=== PATIENT | female | born 1955 | race Caucasian/White ===

== ENCOUNTER → 2017-07-24 08:22 | Outpatient (CLI) | payer OTHER, SELFPAY ==
--- NOTE | 2017-07-24 08:26 | BD_ITS ---
STUDY: DUAL ENERGY X-RAY ABSORPTIOMETRY / DXA REASON FOR EXAM: Female, 62 years old. The patient is postmenopausal. No loss of height. TECHNIQUE: Bone Mineral Density (BMD) measurements of lumbar spine and bilateral hips were obtained. COMPARISON: Comparison is made with prior study dated November 09, 2013. FINDINGS: Lumbar Spine (L1-L4): g/cm2 (1.018) / T-score (-1.4) / Z-score (-0.2) Findings are suggestive of osteopenia with a moderate fracture risk. Left Femur Total: g/cm2 (0.893) / T-score (-0.9) / Z-score (0.0) Left Femoral Neck: g/cm2 (0.824) / T-score (-1.5) / Z-score (0.3) Right Femur Total: g/cm2 (0.899) / T-score (-0.9) / Z-score (0.1) Right Femoral Neck: g/cm2 (0.824) / T-score (-1.5) / Z-score (-0.3) The T-Scores on the most recent prior examination were: Lumbar Spine (L1-L4): There has been worsening of bone density since the previous examination. Left Femur Total: which represents a worsening of 0.9%. Right Femur Total: which represents a worsening of 1.0%. BD/Dexa Bone Density Study IMPRESSION: The patient is considered osteopenic as outlined below according to World Yury Organization (WHO) criteria with a moderate fracture risk. There has been worsening of bone density since the previous examination. Reference Information: The T-score is the number of standard deviations above or below the standard which is normal for young adults at their peak bone mineral density. The World Health Organization (WHO) interprets the T-scores as follows: Above -1 Normal bone density Between -1 and -2.5 Osteopenia Equal to / or below -2.5 Osteoporosis As a practical clinical guideline, osteopenia may be graded as follows: Mild -1 through -1.5 Moderate -1.6 through -2.0 Severe -2.1 through -2.4 The Z-score is the number of standard deviations above or below age-matched controls. A Z-score of less than -1.5 would be considered abnormal. References: 1. NIH Osteoporosis and Related Bone Diseases http://www.osteo.org 2. International Society for Clinical Densitometry http://www.iscd.org 3. National Osteoporosis Foundation http://www.nof.org Electronically Signed: Ty Fatima MD at 10:07 EDT Tel [phone], Service support ,
== END ==
PROVIDERS: Family Provider Family Medicine; PCP Family Medicine; Visit Provider Obstetrics & Gynecology
DX: N95.8 Other specified menopausal and perimenopausal disorders (principal); M85.80 Other specified disorders of bone density and structure, unspecified site
CPT/HCPCS: 77080

== ENCOUNTER → 2017-07-28 13:36 | Outpatient (CLI) | payer OTHER, SELFPAY | PROVIDERS: Visit Provider Obstetrics & Gynecology | DX: M85.80 Other specified disorders of bone density and structure, unspecified site (principal) | CPT/HCPCS: 36415; 82306 ==

== ENCOUNTER → 2017-07-29 13:25 | Outpatient (CLI) | payer OTHER, SELFPAY ==
--- NOTE | 2017-07-29 13:35 | STE_ITS ---
Reason For Study: Chest Pain Stress Results Protocol: Stress Echocardiogram Maximum Predicted HR: 160 bpm Target HR: 136 bpm% Maximum Pr edicted HR: 81 % DurationHeart Rate Stage (mm:ss) (bpm) BPCom ment BASELINE 50 148/90 MARION PROTOCOL- STAGE 1 3:00 10 0 156/92 MARION PROTOCOL- STAGE 2 3:00 13 0 160/88 MARION PROTOCOL- STAGE 3 1:30 / SOB RECOVERY 68 116/88 Stress Duration: 7:30 mm:ss Maximum Stress HR: 130 bpmM ETS: 9 Baseline Echocardiogram Findings Stress Echo Wall motion Data Resting WMIntermediate WMStress WM Resting Wall Motion Wall Motion Stress All segments Normal. All segments Hyperkinetic. Ejection Fraction 55 %. Ejection Fraction 70 %. Stress Results Heart rate response: appropriate Blood pressure response: resting hypertension - appropriate response Arrhythmias: none Functional capacity: good Stopped secondary to: dyspnea. EKG Data Baseline ECG: sinus bradycardia. Exercise ECG: no obvious ECG changes. Symptoms with Stress No c/o chest discomfort during exercise. Interpretation Summary Negative (adequate) Stress Echocardiogram Ordering Physician: Nick Jin Referring Physician: Nick Jin Performed By: Ashley Gonzales, MATILDE, RVT
== END ==
PROVIDERS: Family Provider Family Medicine; PCP Family Medicine; Visit Provider Family Medicine
DX: R07.9 Chest pain, unspecified (principal)
CPT/HCPCS: 93017; 93350

== ENCOUNTER → 2018-01-06 07:59 | Outpatient (CLI) | payer OTHER, SELFPAY ==
--- NOTE | 2018-01-06 08:05 | CT_ITS ---
STUDY: CT MAXILLOFACIAL SINUSES REASON FOR EXAM: Female, 62 years old. Chronic sinusitis RADIATION DOSAGE (If Supplied By Facility): CTDIvol = ( 33.06 ) mGy, DLP = ( 837.98 ) mGycm TECHNIQUE: The patient was scanned in a multi detector CT scanner. High resolution axial imaging was performed without the administration of intravenous contrast material. Sagittal and coronal images were reconstructed. Individualized dose optimization techniques were used for this CT. COMPARISON: None. FINDINGS: FRONTAL SINUSES: Normal aeration, without mucosal inflammatory disease. ETHMOIDAL SINUSES: Normal aeration, without mucosal inflammatory disease. MAXILLARY SINUSES: Normal aeration, without mucosal inflammatory disease. SPHENOIDAL SINUSES: Normal aeration, without mucosal inflammatory disease. There is patency of the bilateral maxillary infundibuli with normal uncinate processes, ethmoid bullae, and hiatus semilunaris. Normal bilateral middle turbinates. Normal bilateral inferior turbinates. Normal midline nasal septum. There is patency of the bilateral nasal airways. The visualized osseous structures are normal. The visualized bilateral orbital contents are normal. CT/Sinus/Facial Bone IMPRESSION: Normal CT examination of the maxillofacial sinuses. Electronically Signed: Alfie Frances, at 17:35 EDT Tel , Service support ,
== END ==
PROVIDERS: Family Provider Family Medicine; PCP Family Medicine; Referring Provider Otolaryngology; Visit Provider Otolaryngology
DX: J32.9 Chronic sinusitis, unspecified (principal)
CPT/HCPCS: 70486

== ENCOUNTER → 2018-07-21 14:20 | Outpatient (CLI) | payer OTHER, SELFPAY ==
[2018-07-24 13:57] LABS: HPV HC, High Risk Negative (Negative)
== END ==
PROVIDERS: Visit Provider Obstetrics & Gynecology
DX: Z12.4 Encounter for screening for malignant neoplasm of cervix (principal)
CPT/HCPCS: 87624; 88175; G0145

== ENCOUNTER → 2019-11-09 10:55 | Outpatient (CLI) | payer OTHER, SELFPAY | PROVIDERS: PCP Family Medicine; Referring Provider Family Medicine; Visit Provider Family Medicine | DX: R19.7 Diarrhea, unspecified (principal) | CPT/HCPCS: 87493; 87506 ==

== ENCOUNTER → 2019-12-03 | Outpatient (CLI) | payer OTHER, SELFPAY ==
[2019-12-08 17:22] LABS: HPV Reflexed? NOT INDICATED
== END | disposition home or self-care (01) ==
LOC: LABSPEC 15:18
PROVIDERS: PCP Family Medicine; Visit Provider Student in an Organized Health Care Education/Training Program
DX: Z12.4 Encounter for screening for malignant neoplasm of cervix (principal)
CPT/HCPCS: 88175; G0145

== ENCOUNTER → 2020-05-26 14:59 | Outpatient (CLI) | payer OTHER, SELFPAY ==
--- NOTE | 2020-05-26 15:03 | RAD_ITS ---
STUDY: X-RAY - LEFT FOOT CLINICAL: Female, 64 years old. Left foot pain x 2-3 days -- unknown injury -- bruising lateral side distal 5th mt TECHNIQUE: 3 view(s) of the foot. COMPARISON: None. FINDINGS: Normal talus, calcaneus, and tarsal bones. Normal visualized subtalar, talonavicular, calcaneocuboid, tarsal and tarsometatarsal articulations. Normal metatarsi. Normal metatarsophalangeal joint of the great toe. Normal tibial and fibular sesamoid bones. Normal interphalangeal joint of the great toe. Normal phalanges of the great toe. Normal second through fifth metatarsophalangeal joints. Normal interphalangeal joints and phalanges of the lesser toes. The soft tissue structures are unremarkable. RAD/Foot min 3 Views IMPRESSION: Normal x-ray examination of the foot. Electronically Signed: Ty Fatima MD at 15:23 EST , Service support ,
== END ==
PROVIDERS: PCP Family Medicine; Referring Provider Family Medicine; Visit Provider Family Medicine
DX: M79.672 Pain in left foot (principal)
CPT/HCPCS: 73630

== ENCOUNTER → 2020-06-09 10:35 | Outpatient (CLI) | payer OTHER, SELFPAY ==
--- NOTE | 2020-06-10 08:47 | PFTCOMP ---
COMPLETE PULMONARY FUNCTION TEST INTERPRETATION Brief HPI: Patient is a 65 year old female, currently under the care of Dr. Hernandes, who presents to [facility] for complete pulmonary function tests secondary to diagnosis of asthma. Respiratory therapist reports good effort and reproducible results. Interpretation: Forced expiration spirometry shows no large airways obstructive ventilatory defect with an FEV1 of 93% predicted. There is no significant bronchodilator response by strict ATS criteria. Spirograms are of good quality and plateau normally. The respiratory flow volume loop shows a normal pattern. Lung volumes by body plethysmography show a normal total lung capacity at 5.93 L, 105% predicted. All other lung volumes are within normal limits. Diffusion capacity by carbon monoxide is normal at 101% predicted. The airway resistance is elevated. No previous pulmonary function tests were available for review. Impression: These pulmonary function tests are within normal limits.
== END ==
PROVIDERS: PCP Family Medicine; Referring Provider Family Medicine; Visit Provider Family Medicine
DX: J45.909 Unspecified asthma, uncomplicated (principal)
CPT/HCPCS: 94060; 94726; 94729

== ENCOUNTER → 2020-09-11 10:05 | Outpatient (CLI) | payer OTHER, SELFPAY ==
[2020-09-11 13:29] LABS: ALB/GLOB Ratio 1.2 RATIO (0.9-2.4); AST(SGOT) 17 U/L (15-37); Alanine Aminotransfer ALT/SGPT 15 U/L (13-56); Albumin, Serum 3.6 g/dL (3.2-5.0); Alkaline Phosphatase 66 U/L (45-117); Anion Gap 6 (5-15); BUN 15 mg/dL (7-18); BUN/Creat Ratio 18.8 RATIO (10-20); Calcium,Total 8.9 mg/dL (8.5-10.1); Chloride 105 mmol/L (98-107); Cholesterol 251 mg/dL (200); EST Glomerular Filtration Rate 77 mL/min (>60); Est Glom Filt Rate - Afr Amer 94 mL/min (>60); Globulin 2.9 g/dL (2.2-4.2); Glucose 85 mg/dL (74-106); High Density Lipoprotein 62 mg/dL; Potassium 4.3 mmol/L (3.5-5.1); Protein, Total 6.5 g/dL (6.4-8.2); Sodium Level 140 mmol/L (136-145); Triglycerides 125 mg/dL; Very Low Density Lipoprotein 25 mg/dL (5-40)
== END ==
PROVIDERS: PCP Family Medicine; Referring Provider Family Medicine; Visit Provider Family Medicine
DX: Z13.1 Encounter for screening for diabetes mellitus (principal); Z13.220 Encounter for screening for lipoid disorders
CPT/HCPCS: 36415; 80053; 80061

== ENCOUNTER → 2021-01-15 | Outpatient (CLI) | payer OTHER, SELFPAY | END | disposition home or self-care (01) | LOC: LABSPEC 01-16 13:38 | PROVIDERS: PCP Family Medicine; Referring Provider Physician Assistant Surgical; Visit Provider Physician Assistant Surgical | DX: Z20.822 Contact with and (suspected) exposure to COVID-19 (principal) | CPT/HCPCS: 87635; U0005; U0003 ==

== ENCOUNTER 2021-04-24 08:51 | Outpatient (CLI) | payer OTHER, SELFPAY ==
--- NOTE | 2021-04-24 09:01 | BD_ITS ---
STUDY: DUAL ENERGY X-RAY ABSORPTIOMETRY / DXA REASON FOR EXAM: Female, 65 years old. 780. Patient is postmenopausal. TECHNIQUE: Bone Mineral Density (BMD) measurements of lumbar spine and bilateral hips were obtained. COMPARISON: Comparison is made with prior study dated 07/24/2017. FINDINGS: Lumbar Spine (L1-L4): g/cm2 (0.858) / T-score (-1.7) / Z-score (0.0) Findings are suggestive of osteopenia with a moderate fracture risk. Left Femur Total: g/cm2 (0.826) / T-score (-1.0) / Z-score (0.2) Left Femoral Neck: g/cm2 (0.667) / T-score (-1.6) / Z-score (-0.2) Right Femur Total: g/cm2 (0.828) / T-score (-0.9) / Z-score (0.2) Right Femoral Neck: g/cm2 (0.662) / T-score (-1.7) / Z-score (-0.2) The T-Scores on the most recent prior examination were: Lumbar Spine (L1-L4): There has been worsening of bone density since the previous examination. Left Femur Total: which represents a worsening of 0.4%. Right Femur Total: which represents a worsening of 0.9%. BD/Dexa Bone Density Study IMPRESSION: The patient is considered osteopenic as outlined below according to World Yury Organization (WHO) criteria with a moderate fracture risk. There has been worsening of bone density since the previous examination. Reference Information: The T-score is the number of standard deviations above or below the standard which is normal for young adults at their peak bone mineral density. The World Health Organization (WHO) interprets the T-scores as follows: Above -1 Normal bone density Between -1 and -2.5 Osteopenia Equal to / or below -2.5 Osteoporosis As a practical clinical guideline, osteopenia may be graded as follows: Mild -1 through -1.5 Moderate -1.6 through -2.0 Severe -2.1 through -2.4 The Z-score is the number of standard deviations above or below age-matched controls. A Z-score of less than -1.5 would be considered abnormal. References: 1. NIH Osteoporosis and Related Bone Diseases www osteo.org 2. International Society for Clinical Densitometry www iscd.org 3. National Osteoporosis Foundation www nof.org Electronically Signed: Ty Fatima MD at 10:01 EST , Service support ,
== END 2021-04-24 23:59 | disposition short-term general hospital (02) ==
LOC: OPBD 08:51
PROVIDERS: PCP Family Medicine; Referring Provider Student in an Organized Health Care Education/Training Program; Visit Provider Student in an Organized Health Care Education/Training Program
DX: Z78.0 Asymptomatic menopausal state (principal)
CPT/HCPCS: 77080

== ENCOUNTER → 2022-01-24 | Outpatient (CLI) | payer OTHER, SELFPAY ==
[2022-01-24 12:19] LABS: Absolute Lymphocyte Count 0.99 X10^3/uL (0.83-4.51); Absolute Neutrophil Count 1.9 X10^3/uL (2.0-7.7); Basophil# 0.03 X10^3/uL; Basophil% 0.9 % (0-1); Eosinophil# 0.12 X10^3/uL; Eosinophils% 3.5 % (0-5); Hematocrit 40.3 % (37-47); Hemoglobin 13.2 g/dL (12.0-15.0); Lymphocyte # 0.99 X10^3/ul (0.83-4.51); Lymphocyte % 28.9 % (19-41); Mean Corp Hgb Conc 32.8 g/dL (32-36); Mean Corpuscular Hgb 30.5 pg (27.0-32.0); Mean Corpuscular Volume 93.1 fL (81-99); Mean Platelet Vol. 9.8 fl (6.2-12.0); Monocyte# 0.34 X10^3/uL; Monocyte% 9.9 % (0-10); NRBC Flagged by Analyzer 0 % (0-5); Neutrophil # 1.93 X10^3/uL (2.7-7.7); Neutrophil % 56.5 % (47-70); Platelet Count 260 K/mm3 (150-450); RBC Distribution Width CV 13.1 % (11.6-14.6); RBC Distribution Width SD 44.7 fl (35.1-43.9); Red Blood Count 4.33 M/mm3 (4.2-5.4); White Blood Count 3.4 K/mm3 (4.4-11.0)
[2022-01-24 12:34] LABS: Vitamin D,25 Hydroxy 40.5 ng/mL
[2022-01-24 12:38] LABS: ALB/GLOB Ratio 1.1 RATIO (0.9-2.4); AST(SGOT) 16 U/L (15-37); Alanine Aminotransfer ALT/SGPT 18 U/L (13-56); Albumin, Serum 3.7 g/dL (3.2-5.0); Alkaline Phosphatase 64 U/L (45-117); Anion Gap 5 (5-15); BUN 22 mg/dL (7-18); BUN/Creat Ratio 23.1 RATIO (10-20); Calcium,Total 9.1 mg/dL (8.5-10.1); Chloride 105 mmol/L (98-107); Cholesterol 240 mg/dL (200); Creatinine, Serum 0.95 mg/dL (0.55-1.02); EST Glomerular Filtration Rate 63 mL/min (>60); Est Glom Filt Rate - Afr Amer 76 mL/min (>60); Globulin 3.3 g/dL (2.2-4.2); Glucose 88 mg/dL (74-106); High Density Lipoprotein 64 mg/dL; Potassium 4.4 mmol/L (3.5-5.1); Sodium Level 140 mmol/L (136-145); Triglycerides 118 mg/dL; Very Low Density Lipoprotein 24 mg/dL (5-40)
== END | disposition home or self-care (01) ==
LOC: BFHLAB 09:19
PROVIDERS: PCP Family Medicine; Visit Provider Family Medicine
DX: Z00.01 Encounter for general adult medical examination with abnormal findings (principal); M85.80 Other specified disorders of bone density and structure, unspecified site; F32.A Depression, unspecified
CPT/HCPCS: 36415; 80053; 80061; 82306; 85025

== ENCOUNTER 2022-03-22 12:30 | Outpatient (RCR) | payer OTHER, SELFPAY ==
--- NOTE | 2022-03-15 12:11 | HP.PTEVAL_ITS ---
Patient's Visit Information WILLIE COBOS is a 66 year old F referred to Physical Therapy by Dr. Dickson Lorenz DO with a diagnosis of cervical spine pain. Date of Evaluation: 03/15/22 Physical Therapist: Charly Kelly, PT, ATC - Visit Plan Frequency: 2x /Week Duration: 1 Week Plan: Issue and instruct in HEP of scap stab and rotator cuff ex's - Subjective Pt reports she went to the doctor 2 months ago because she had severe neck pain that radiated down her back and her R UE. Pt notes she believed her pain was a result of carrying her 20 pound grand child. Pt reports she quit doing that over the past 2 months and all of the symptoms have dissipated. Pt notes she is here today to get ex's for preventing future episodes of c/s pain. Pt reports she has had recent x-rays which revealed significant OA. Pt reports she used to play t santana and water ski, but she plans on stopping that now secondary to her R UE weakness and pain. Pt reports no sleep difficulty now secondary to pain. Pt notes she couldn't sleep when pain was bad. Pt reports her greatest complaint is the stiffness that still exists. Pt reports she is in no pain today. - Pain neck pain Pain Intensity (Out of 10): 0 - Objective Neuro: B UE sensation is WNL to light touch. B bicipital reflex= 2/3. MMT: B UE's are grossly 4+/5 throughout. ROM: B UE's are WFL when compared bilatera lly. C/S ROM is minimally limited in all planes. retraction is severely limited. Repeated movements: NE with RRIS and RPIS 10x1 - Balance/Special Test Scores Oswestry Neck Score: 9 - Goals Goal 1:: I with HEP Goal Time Frame: 1 Week - Rehabilitation Potential Physical Therapy Diagnosis: Pt has neck pain, R UE pain secondary to c/s OA Rehabilitation Potential: Good - Anticipated Interventions Thank you for the opportunity to evaluate your patient. For Medicare and Medicare HMO plans, please review the plan of care and approve it. It will need to be FAXED BACK to us at [phone] for Medicare purposes. For Medicare only, by signing this I certify the plan of care. Please let me know if there are questions or concerns regarding this plan of care. Physician Signat amelie: Date:
--- NOTE | 2022-03-22 13:36 | HP.PTDCSUM ---
It has been my pleasure to treat WILLIE COBOS referred by Dr. Dickson Lorenz DO, with the diagnosis of cervical spine pain for a total of 3 visit(s). Discharge Date: Please see the following information for a summary of their discharge status. Subjective: My pain is better today neck pain Pain Intensity (Out of 10): 2 % Improvement: 50 Objective/Function: Pt is now I with HEP Goal 1:: I with HEP Plan: Discharge to HEP If there are questions or concerns regarding this patient's physical therapy, please feel free to call me at [phone]. Thank you for the referral of this patient. Sincerely, Charly Kelly, PT, ATC Balance/Gait/Functional tests - Balance/Special Test Scores Oswestry Neck Score: 9
== END 2022-03-22 13:42 | disposition home or self-care (01) ==
LOC: PT 12:30
PROVIDERS: PCP Family Medicine; Referring Provider Orthopaedic Surgery; Visit Provider Orthopaedic Surgery
DX: M48.02 Spinal stenosis, cervical region (principal); M47.22 Other spondylosis with radiculopathy, cervical region; M25.521 Pain in right elbow
CPT/HCPCS: 97110; 97161

== ENCOUNTER → 2022-07-12 | Outpatient (CLI) | payer MEDICARE, SELFPAY ==
[2022-07-12 16:36] LABS: Absolute Lymphocyte Count 1.17 X10^3/uL (0.83-4.51); Absolute Neutrophil Count 2.5 X10^3/uL (2.0-7.7); Basophil# 0.04 X10^3/uL; Eosinophil# 0.06 X10^3/uL; Eosinophils% 1.5 % (0-5); Hematocrit 38.4 % (37-47); Hemoglobin 12.5 g/dL (12.0-15.0); Lymphocyte # 1.17 X10^3/ul (0.83-4.51); Lymphocyte % 28.7 % (19-41); Mean Corp Hgb Conc 32.6 g/dL (32-36); Mean Corpuscular Hgb 30.7 pg (27.0-32.0); Mean Corpuscular Volume 94.3 fL (81-99); Mean Platelet Vol. 10.1 fl (6.2-12.0); Monocyte# 0.32 X10^3/uL; Monocyte% 7.8 % (0-10); NRBC Flagged by Analyzer 0 % (0-5); Neutrophil # 2.48 X10^3/uL (2.7-7.7); Neutrophil % 60.8 % (47-70); Platelet Count 260 K/mm3 (150-450); RBC Distribution Width CV 12.8 % (11.6-14.6); RBC Distribution Width SD 44.7 fl (35.1-43.9); Red Blood Count 4.07 M/mm3 (4.2-5.4); White Blood Count 4.1 K/mm3 (4.4-11.0)
[2022-07-12 16:43] LABS: ALB/GLOB Ratio 1.1 RATIO (0.9-2.4); AST(SGOT) 20 U/L (15-37); Alanine Aminotransfer ALT/SGPT 21 U/L (13-56); Albumin, Serum 3.6 g/dL (3.2-5.0); Alkaline Phosphatase 63 U/L (45-117); Anion Gap 4 (5-15); BUN 18 mg/dL (7-18); BUN/Creat Ratio 19.8 RATIO (10-20); Calcium,Total 8.7 mg/dL (8.5-10.1); Chloride 103 mmol/L (98-107); Cholesterol 227 mg/dL (200); Creatinine, Serum 0.91 mg/dL (0.55-1.02); EST Glomerular Filtration Rate 66 mL/min (>60); Est Glom Filt Rate - Afr Amer 80 mL/min (>60); Globulin 3.2 g/dL (2.2-4.2); Glucose 96 mg/dL (74-106); High Density Lipoprotein 61 mg/dL; Potassium 4.1 mmol/L (3.5-5.1); Protein, Total 6.8 g/dL (6.4-8.2); Sodium Level 136 mmol/L (136-145); Triglycerides 186 mg/dL; Very Low Density Lipoprotein 37 mg/dL (5-40)
== END | disposition home or self-care (01) ==
PROVIDERS: PCP Internal Medicine; Referring Provider Internal Medicine; Visit Provider Internal Medicine
DX: E78.5 Hyperlipidemia, unspecified (principal); M85.80 Other specified disorders of bone density and structure, unspecified site
CPT/HCPCS: 36415; 80053; 80061; 82306; 85025

== ENCOUNTER → 2023-01-01 | Outpatient (CLI) | payer MEDICARE, SELFPAY ==
--- NOTE | 2023-01-01 09:51 | RAD_ITS ---
STUDY: X-RAY CHEST REASON FOR EXAM: Female, 67 years old. Cough TECHNIQUE: PA and lateral views of the chest. COMPARISON: None. FINDINGS: The lungs are clear and expanded. There is a small focus of surgical clips in the right chest. There is no demonstrated pleural abnormality. Normal size heart. Normal mediastinum and car. Normal visualized pulmonary arteries. There is a trace focus of calcification at the aortic arch. Normal visualized thoracic spine. Normal visualized ribs, clavicles, and shoulders. There is no demonstrated abnormality of the visualized soft tissue structures of the upper abdomen. RAD/Chest PA and Lateral IMPRESSION: No demonstrated acute cardiopulmonary process. Electronically Signed: Edith Yang MD at 17:13 EDT ,
== END | disposition home or self-care (01) ==
LOC: MTRAD 09:50
PROVIDERS: PCP Internal Medicine; Referring Provider Internal Medicine; Visit Provider Internal Medicine
DX: R05.8 Other specified cough (principal)
CPT/HCPCS: 71046

== ENCOUNTER → 2023-01-14 | Outpatient (CLI) | payer MEDICARE, SELFPAY ==
--- NOTE | 2023-01-14 10:31 | RAD_ITS ---
STUDY: X-RAY CHEST REASON FOR EXAM: Female, 67 years old. Cough TECHNIQUE: PA and lateral views of the chest. COMPARISON: January 01, 2023 chest x-ray FINDINGS: There is a stable appearance of the lungs.. There is no focal consolidation or pleural effusion. There is no demonstrated pleural abnormality. Normal size heart. Normal mediastinum and car. Normal visualized pulmonary arteries. There is atherosclerotic calcification of the aortic arch with tortuosity. Normal visualized thoracic spine. Normal visualized ribs, clavicles, and shoulders. There is no demonstrated abnormality of the visualized soft tissue structures of the upper abdomen. RAD/Chest PA and Lateral IMPRESSION: Degenerative changes, as described above. No demonstrated acute cardiopulmonary process. Electronically Signed: Edith Yang MD at 10:49 EDT ,
== END | disposition home or self-care (01) ==
LOC: MTRAD 10:30
PROVIDERS: PCP Internal Medicine; Referring Provider Physician Assistant; Visit Provider Physician Assistant
DX: R05.9 Cough, unspecified (principal)
CPT/HCPCS: 71046

== ENCOUNTER 2023-01-18 13:34 | Emergency (ER) | payer MEDICARE, SELFPAY ==
[2023-01-18 13:38] VITALS: BP 143/103; PULSE 79; RESP 18; TEMP 36.9; O2SAT 97; BMI 20.9
--- NOTE | 2023-01-18 14:00 | RAD_ITS ---
INDICATION: cough EXAMINATION/TECHNIQUE: X-RAY - XR Chest 2 Views COMPARISON: January 14, 2023 FINDINGS: LINES/DEVICES: None. LUNGS: No consolidation, edema or effusion. No pneumothorax. MEDIASTINUM AND CARDIOVASCULAR STRUCTURES: Cardiac silhouette not enlarged. Central airways and mediastinal contour are unremarkable. BONES AND SOFT TISSUES: Unremarkable. Stable exam. RAD/Chest PA and Lateral IMPRESSION: No radiographic evidence of acute cardiopulmonary disease. Electronically Signed: Shlomo Buenrostro MD at 14:25 EDT ,
--- NOTE | 2023-01-18 14:21 | EDS_ITS ---
HPI <ALEX Carreno - Last Filed: 01/18/23 16:07> History of Present Illness Chief Complaint: Shortness of Breath Narrative Narrative: Patient presenting today due to a cough that she has had for over a month. She reports that it is a wet cough but she rarely coughs up sputum. She was seen at urgent care on 12/26/2022 for this cough and was put on a Medrol Dosepak, she did not have any relief of her symptoms with this so she saw an associate at her PCPs office on 01/14/2023 and was put on doxycycline and prednisone. She did complete these medications but did not have any relief of her symptoms. She reports a history of asthma, she denies any history of smoking. She has been using her inhaler as needed. She does report feeling slightly short of breath on exertion over this past month due to feeling like she cannot take a full breath. She reports nasal congestion and a feeling of fullness in her ears, especially on the left. She denies fever, chills, chest pain, abdominal pain, nausea, and vomiting. PFS <ALEX Carreno - Last Filed: 01/18/23 16:07> [facility] Medical History Acute sinusitis, unspecified Anxiety and depression Arthritis Asthma Asthmatic bronchitis with acute exacerbation Bronchitis Carpal tunnel syndrome Colon cancer screening Health care maintenance History of frequent headaches History of hearing problem History of skin cancer Hx of breast lump Hx of emotional problems HX: breast cancer Hyperlipidemia Migraines Osteopenia Pneumonia Right elbow pain Vitamin deficiency Home Medications arm brace (MINDY Elbow Brace) #1 ea 07/12/22 [Rx Last Taken Unknown] calcium carbonate 600 mg calcium (1,500 mg) tablet (Calcium) 905 mg PO DAILY 07/12/22 [History Last Taken Unknown] cholecalciferol (vitamin D3) 75 mcg (3,000 unit) tablet 25 mcg PO DAILY 07/12/22 [History Last Taken Unknown] famotidine 10 mg tablet (Pepcid AC) 10 mg PO DAILY 07/12/22 [History Last Taken Unknown] magnesium 200 mg tablet 200 mg PO DAILY 07/12/22 [History Last Taken Unknown] sumatriptan succinate 50 mg tablet 50 mg PO QDAY #14 tabs 09/05/22 [Rx Last Taken Unknown] albuterol sulfate 90 mcg/actuation aerosol inhaler 2 puff inhalation Q6H PRN shortness of breath or wheezing #8.5 grams 01/01/23 [Rx Last Taken Unknown] benzonatate 100 mg capsule 100 mg PO TID PRN cough #30 caps 01/01/23 [Rx Last Taken Unknown] citalopram 20 mg tablet 20 mg PO DAILY #30 tabs 01/01/23 [Rx Last Taken Unknown] doxycycline hyclate 100 mg tablet 100 mg PO DAILY #10 tabs 01/01/23 [Rx Last Taken Unknown] albuterol sulfate 90 mcg/actuation aerosol inhaler 2 puff inhalation 6XD PRN shortness of breath or wheezing #8.5 grams 01/14/23 [Rx Last Taken Unknown] clindamycin HCl 300 mg capsule 300 mg PO TID #30 caps 01/14/23 [Rx Last Taken Unknown] codeine 7.5 mg-guaifenesin 225 mg/5 mL oral liquid 5 ml PO QPM 1 week #35 mL 01/18/23 [Rx Last Taken Unknown] fexofenadine 60 mg-pseudoephedrine ER 120 mg tablet,ext.release,12 hr (Jennifer-D 12 Hour) 1 tab PO Q12H PRN sinus symptoms 2 weeks #14 tabs 01/18/23 [Rx Last Taken Unknown] inhalational spacing device (BreatheRite MDI Spacer) #1 ea 01/18/23 [Rx Last Taken Unknown] prednisone 20 mg tablet 40 mg (2 x 20 mg) PO DAILY 4 days #8 TABLETS 01/18/23 [Rx Last Taken Unknown] Allergy/AdvReac Type Severity Reaction Status Date / Time Penicillins Allergy Mild Rash Verified 01/18/23 13:38 Family History Uncle Myocardial infarction Grandfather Heart disease Father Hx of blood clots Aunt Breast cancer Mother Anesthesia complication Sister Anesthesia complication Surgical History H/O lumpectomy Social History Smoking Status: Never smoker alcohol intake: current alcohol intake frequency: a few times a month substance use type: does not use what type of physical activity do you participate in: walking and yoga ROS <ALEX Carreno - Last Filed: 01/18/23 16:07> ROS ED Constitutional Constitutional ED: Denies chills or fever(s) ENT ENT ED: Reports nasal congestion; Denies facial pain or sore throat Cardiovascular Cardiovascular: Denies chest pain or palpitations Respiratory/Chest Respiratory/Chest: Reports cough, dyspnea on exertion and wheezing; Denies tachypnea Gastrointestinal Gastrointestinal: Denies abdominal pain, nausea or vomiting Musculoskeletal Musculoskeletal: Denies arthralgias or myalgias Integumentary Denies rash Neurologic Neurologic: Denies weakness EXAM <ALEX Carreno - Last Filed: 01/18/23 16:07> Physical Exam Const Vital Signs: 01/18/23 13:38 01/18/23 14:25 01/18/23 14:25 Temperature 98.5 F Temperature Source Temporal Pulse Rate 79 65 Respiratory Rate 18 16 Respiratory Pattern Normal Blood Pressure 143/103 H Blood Pressure Mean 116 Pulse Ox 97 98 Oxygen Delivery Method Room Air Room Air 01/18/23 15:41 Temperature Temperature Source Pulse Rate Respiratory Rate 17 Respiratory Pattern Blood Pressure Blood Pressure Mean Pulse Ox 99 Oxygen Delivery Method Positive well nourished, well developed and no apparent distress General Appearance ED: well developed HEENT Reports normocephalic and head/scalp atraumatic HEENT Narrative: Right TM clear, left TM with effusion, no bulging or erythema to the left TM Mouth ED: Yes moist mucous membranes normal Eyes PERRL and EOMs intact bilaterally Neck full ROM and supple Chest Wall inspection of chest normal Resp normal respiratory effort and clear to auscultation bilaterally Resp Narrative: Scattered expiratory wheezes with course lung sounds throughout bilateral lung way. Cardio regular rate and regular rhythm GI soft to palpation, non-tender, non-distended and no masses Back/Spine normal ROM and normal to inspection Extremity normal to inspection and full ROM Neuro oriented x3, CN's II-XII intact bilaterally, moves all extremities, no focal motor deficits and no sensory deficits noted Sensorium / Orientation: awake and alert Psych mental status grossly normal and thought process normal Skin no rashes or lesions noted and no wounds <Dr. Richmond Pandey MD - Last Filed: 01/18/23 15:14> Physical Exam Const Vital Signs: 01/18/23 13:38 01/18/23 14:25 01/18/23 14:25 Temperature 98.5 F Temperature Source Temporal Pulse Rate 79 65 Respiratory Rate 18 16 Respiratory Pattern Normal Blood Pressure 143/103 H Blood Pressure Mean 116 Pulse Ox 97 98 Oxygen Delivery Method Room Air Room Air 01/18/23 15:41 Temperature Temperature Source Pulse Rate Respiratory Rate 17 Respiratory Pattern Blood Pressure Blood Pressure Mean Pulse Ox 99 Oxygen Delivery Method MDM <ALEX Carreno - Last Filed: 01/18/23 16:07> [facility] Narrative Medical decision making narrative: Patient presenting today due to a wet cough that she has had for over a month. She is nontoxic-appearing, vitals are unremarkable aside from elevated blood pressure. She is not hypoxic, O2 is 98% on room air. She does have a history of asthma, her lungs are little bit wheezy and she has course breath sounds throughout. Left TM effusion without any erythema or bulging to the TM. Chest x-ray will be obtained to rule out pneumonia, she will be given a DuoNeb here. X-ray is unremarkable. She has not trialed any decongestants, I do think she would benefit from a decongestant as well as something to help her sleep at night as the cough is making it hard for her to sleep. She will be given a prescription for prednisone, guaifenesin and codeine for nighttime, and Jennifer- D. She will be discharged home in stable condition. She is to follow-up with her PCP. Radiography X-Ray: Read by ED Physician and Read by Radiologist Diagnostic Testing: Clinical Impression(s) from Imaging Studies Chest X-Ray 01/18/23 14:00 IMPRESSION: No radiographic evidence of acute cardiopulmonary disease. Electronically Signed: Shlomo Buenrostro MD at 14:25 EDT , <Dr. Richmond Pandey MD - Last Filed: 01/18/23 15:14> [facility] Radiography Diagnostic Testing: Clinical Impression(s) from Imaging Studies Chest X-Ray 01/18/23 14:00 IMPRESSION: No radiographic evidence of acute cardiopulmonary disease. Electronically Signed: Shlomo Buenrostro MD at 14:25 EDT , Treatment and Re-Evaluation :: I have personally performed a face to face assessment of the patient and have reviewed the KANG Note. I performed a substantive portion of the visit including all aspects of the following. My fisher findings include: History: Patient has been having coughing going on for weeks. She does have a history of asthma. She was seen in urgent care and placed on what sounds like a Medrol Dosepak. She then saw her primary physician. She was placed on prednisone and antibiotics. She seems like the symptoms get better each time but do not resolve and then the symptoms come back. She has had a trip to [place] but that was after her symptoms started and after she had already been seen and treated twice. Things are not worsening. She has never had chest pain or hemoptysis. No leg pain or swelling. No history of DVT or PE. Exam: Patient awake alert no acute distress. Vitals look good. Saturations are normal at 98% on room air showing no hypoxia. But the patient does have diffuse expiratory wheezing. She has some overall coarse breath sounds. I do not hear rales. There is no pain with a deep breath. She is not tachycardic. There is no peripheral edema at all. Medical Decision Making: Patient will have x-ray done. We will give her a DuoNeb and recheck her. Discharge Plan Triage Chief Complaint: Shortness of Breath ED Midlevel Provider: Monik Gtz ED Provider: Richmond Pandey Dx/Rx/DC Orders Clinical Impression: Bronchitis, Asthma Instructions: ED Bronchitis with Wheezing (Adult) Prescriptions: New fexofenadine-pseudoephedrine [Jennifer-D 12 Hour] 60-120 mg tablet extended release 12 hr 1 tab PO Q12H PRN (Reason: sinus symptoms) 14 Days Qty: 14 0RF codeine-guaifenesin 7.5-225 mg/5 mL liquid 5 ml PO QPM 7 Days Qty: 35 0RF prednisone 20 mg tablet 40 mg PO DAILY 4 Days Qty: 8 0RF (DME) BreatheRite MDI Spacer Spacer See Rx Instructions .Route Qty: 1 0RF Rx Instructions: As directed No Action calcium carbonate [Calcium 600] 600 mg calcium (1,500 mg) tablet 905 mg PO DAILY cholecalciferol (vitamin D3) 75 mcg (3,000 unit) tablet 25 mcg PO DAILY magnesium 200 mg tablet 200 mg PO DAILY famotidine [Pepcid AC] 10 mg tablet 10 mg PO DAILY (DME) MINDY Elbow Brace Misc See Rx Instructions .Route Qty: 1 3RF Rx Instructions: As directed doxycycline hyclate 100 mg tablet 100 mg PO DAILY Qty: 10 0RF benzonatate 100 mg capsule 100 mg PO TID PRN (Reason: cough) Qty: 30 0RF albuterol sulfate 90 mcg/actuation HFA aerosol inhaler 2 puff inhalation Q6H PRN (Reason: shortness of breath or wheezing) Qty: 8.5 1RF citalopram 20 mg tablet 20 mg PO DAILY Qty: 30 0RF clindamycin HCl 300 mg capsule 300 mg PO TID Qty: 30 0RF albuterol sulfate 90 mcg/actuation HFA aerosol inhaler 2 puff inhalation 6XD PRN (Reason: shortness of breath or wheezing) Qty: 8.5 0RF sumatriptan succinate 50 mg tablet 50 mg PO QDAY Qty: 14 1RF Primary Care Provider: Frantz Cotter Referrals: Frantz Cotter MD [Primary Care Provider] - 5-7 Days Activity Restrictions/Additional Instructions: Return for any worsening of your symptoms and follow-up with your PCP. Disposition Disposition: Home, Self Care Discharge Date/Time: 01/18/23 15:42
[2023-01-18] MEDS: Ipratropium/Albuterol Sulfate 3 ML AMPUL.NEB INHALATION (14:22)
[2023-01-18 14:25] VITALS: PULSE 65; RESP 16; O2SAT 98
[2023-01-18 15:41] VITALS: RESP 17; O2SAT 99
== END 2023-01-18 15:42 | disposition home or self-care (01) ==
PROVIDERS: Emergency Provider Emergency Medicine; PCP Internal Medicine; Visit Provider Emergency Medicine
DX: J45.909 Unspecified asthma, uncomplicated (principal); Z85.3 Personal history of malignant neoplasm of breast; R03.0 Elevated blood-pressure reading, without diagnosis of hypertension; E78.5 Hyperlipidemia, unspecified; G43.909 Migraine, unspecified, not intractable, without status migrainosus; Z79.899 Other long term (current) drug therapy
CPT/HCPCS: 71046; 99282

== ENCOUNTER → 2023-03-13 | Outpatient (CLI) | payer MEDICARE, SELFPAY ==
--- NOTE | 2023-03-14 13:35 | PFTCOMP_ITS ---
COMPLETE PULMONARY FUNCTION TEST INTERPRETATION Brief HPI: Patient is a 67-year-old female, currently under the care of Dr. Cotter, who presents to [facility] for complete pulmonary function tests secondary to diagnosis of asthma. Respiratory therapist reports good effort and reproducible results. Interpretation: Forced expiration spirometry shows no large airways obstructive ventilatory defect with an FEV1 of 111% predicted. There is no significant bronchodilator response by strict ATS criteria. Spirograms are of good quality and plateau normally. The respiratory flow volume loop shows a normal pattern. Lung volumes by body plethysmography show a normal total lung capacity at 5.62 L, 107% predicted. All other lung volumes are within normal limits. Diffusion capacity by carbon monoxide is normal at 87% predicted. The airway resistance is normal. Compared to previous pulmonary function tests from 06/09/2020, there has been no significant change. Impression: These pulmonary function tests are grossly within normal limits and show no significant change compared to 2020
== END | disposition home or self-care (01) ==
LOC: PSN 08:55
PROVIDERS: PCP Internal Medicine; Referring Provider Internal Medicine; Visit Provider Internal Medicine
DX: J45.909 Unspecified asthma, uncomplicated (principal)
CPT/HCPCS: 94060; 94726; 94729

== ENCOUNTER → 2023-06-11 | Outpatient (CLI) | payer MEDICARE, SELFPAY ==
--- NOTE | 2023-06-11 09:04 | ART_ITS ---
Reason For Study: PAD Procedure A bilateral lower extremity continuous wave Doppler with analog waveform analysis and ankle brachial indexes. Left Segmental Pressures Left brachial= 143mmHg. Left posterior tibial artery = 194mmHg. Left dorsalis pedis artery = 165mmHg. Left digit = 146 mmHg. The left posterior tibial artery waveforms are triphasic. The left dorsalis pedis waveforms are triphasic. Right Segmental Pressures Right brachial= 149mmHg. Right posterior tibial artery = 188mmHg. Right dorsalis pedis artery = 152mmHg. Right digit = 157 mmHg. The right posterior tibial artery waveforms are triphasic. The right dorsalis pedis waveforms are triphasic. Indices The right ankle brachial index by the posterior tibial artery is 1.26. The right ankle brachial index by the dorsalis pedis is 1.02. The right digital-brachial index is 1.05. The left ankle brachial index by the posterior tibial artery is 1.30. The left ankle brachial index by the dorsalis pedis is 1.11. The left post exercise ankle brachial index is 0.98. VL/Ankle Brachial Index Interpretation Summary Right CHARLENE 1.26, normal. TBI and Doppler/PVR waveforms of the right ankle normal at rest. Left CHARLENE 1.3, normal. TBI and Doppler/PVR waveforms of the left ankle normal at rest. Ordering Physician: Frantz Cotter Referring Physician: Frantz Cotter Performed By: Jose Shaikh RVT
== END | disposition home or self-care (01) ==
LOC: CVS 09:03
PROVIDERS: PCP Internal Medicine; Referring Provider Internal Medicine; Visit Provider Internal Medicine
DX: I73.9 Peripheral vascular disease, unspecified (principal)
CPT/HCPCS: 93922

== ENCOUNTER → 2023-07-09 | Outpatient (CLI) | payer MEDICARE, SELFPAY ==
--- NOTE | 2023-07-09 15:50 | BD_ITS ---
STUDY: DUAL ENERGY X-RAY ABSORPTIOMETRY / DXA REASON FOR EXAM: Female, 68 years old. Post Menopausal. Hx of Osteopenia TECHNIQUE: Bone Mineral Density (BMD) measurements of lumbar spine and bilateral hips were obtained. COMPARISON: Comparison is made with prior study dated April 24, 2021. FINDINGS: Lumbar Spine (L1-L4): g/cm2 (0.860) / T-score (-1.7) / Z-score (0.1) Findings are suggestive of osteopenia with a moderate fracture risk. Left Femur Total: g/cm2 (0.841) / T-score (-0.8) / Z-score (0.5) Left Femoral Neck: g/cm2 (0.645) / T-score (-1.8) / Z-score (-0.3) Right Femur Total: g/cm2 (0.815) / T-score (-1.0) / Z-score (0.2) Right Femoral Neck: g/cm2 (0.617) / T-score (-2.1) / Z-score (-0.5) The T-Scores on the most recent prior examination were: Lumbar Spine (L1-L4): There has been improvement of bone density since the previous examination. Left Femur Total: which represents an improvement of 1.9%. Right Femur Total: which represents a worsening of 1.5%. BD/Dexa Bone Density Study IMPRESSION: The patient is considered osteopenic as outlined below according to World Yury Organization (WHO) criteria with a moderate fracture risk. There has been improvement of bone density since the previous examination. Reference Information: The T-score is the number of standard deviations above or below the standard which is normal for young adults at their peak bone mineral density. The World Health Organization (WHO) interprets the T-scores as follows: Above -1 Normal bone density Between -1 and -2.5 Osteopenia Equal to / or below -2.5 Osteoporosis As a practical clinical guideline, osteopenia may be graded as follows: Mild -1 through -1.5 Moderate -1.6 through -2.0 Severe -2.1 through -2.4 The Z-score is the number of standard deviations above or below age-matched controls. A Z-score of less than -1.5 would be considered abnormal. References: 1. NIH Osteoporosis and Related Bone Diseases www osteo.org 2. International Society for Clinical Densitometry www iscd.org 3. National Osteoporosis Foundation www nof.org Electronically Signed: Ty Fatima MD at 19:24 EDT ,
== END | disposition home or self-care (01) ==
LOC: OPBD 15:48
PROVIDERS: PCP Internal Medicine; Referring Provider Internal Medicine; Visit Provider Internal Medicine
DX: Z13.820 Encounter for screening for osteoporosis (principal); Z78.0 Asymptomatic menopausal state
CPT/HCPCS: 77080

== ENCOUNTER 2023-08-29 08:08 | Day surgery (SDC) | payer MEDICARE, SELFPAY ==
[2023-08-29] VITALS (10 sets, daily range): BP systolic 78–135; BP diastolic 55–94; PULSE 57–79; RESP 16; TEMP 36.1–36.4; O2SAT 92–100; BMI 19.8
--- NOTE | 2023-08-29 08:37 | H&P.OPEN ---
[facility] - General General Date of Service: 08/29/23 HPI Narrative WILLIE COBOS, is a 68 F who presents for screening colonoscopy. Patient last colonoscopy was 10 years ago. Patient has bowel movements every other day denies any blood. Patient denies any chronic abdominal pain/nausea/vomiting. Patient is on Pepcid 10 mg p.o. daily for reflux which is controlled patient is never had previous EGD. [facility] Medical History Wears glasses Post-menopausal Cancer Depression Anxiety Alcohol use History of steroid therapy Easy bruising Injury of head and neck Gastric reflux History of pain when walking History of stress test PAD (peripheral artery disease) GERD (gastroesophageal reflux disease) Blood pressure elevated without history of HTN Asthmatic bronchitis with acute exacerbation Acute sinusitis, unspecified Health care maintenance Anxiety and depression Migraines Right elbow pain Colon cancer screening Hyperlipidemia Vitamin deficiency Pneumonia Osteopenia History of hearing problem History of frequent headaches Hx of emotional problems Bronchitis Carpal tunnel syndrome History of skin cancer HX: breast cancer Hx of breast lump Asthma Arthritis Home Medications ?Medication ?Instructions ?Recorded ?Last Taken ?Type arm brace (MINDY Elbow Brace) #1 ea 07/12/22 Unknown Rx calcium carbonate (Calcium 600) 1,200 mg PO DAILY 07/12/22 08/27/23 History cholecalciferol (vitamin D3) 75 25 mcg PO DAILY 07/12/22 08/27/23 History mcg (3,000 unit) tablet famotidine 10 mg tablet (Pepcid AC) 10 mg PO DAILY 07/12/22 08/27/23 History inhalational spacing device #1 ea 01/18/23 Unknown Rx (BreatheRite MDI Spacer) albuterol sulfate 90 mcg/actuation 2 puff inhalation Q6H PRN 05/30/23 Unknown Rx aerosol inhaler shortness of breath or wheezing #8.5 grams citalopram 20 mg tablet 20 mg PO DAILY #90 tabs 07/30/23 08/28/23 Rx sumatriptan succinate 50 mg tablet See Rx Instructions PO .COMPLEX 08/08/23 Unknown Rx #12 tabs budesonide-formoterol HFA 160 2 puff inhalation BID 08/27/23 Unknown History mcg-4.5 mcg/actuation aerosol inhaler (Breyna) Allergy/AdvReac Type Severity Reaction Status Date / Time Penicillins Allergy Mild Rash Verified 08/29/23 08:30 Family History (Updated 06/02/23 @ 09:00 by Cristin Helms) Uncle Myocardial infarction Grandfather Heart disease Father Hx of blood clots Aunt Breast cancer Mother Anesthesia complication Sister Anesthesia complication Daughter Crohn's disease Surgical History Hx of colonoscopy H/O lumpectomy Social History Smoking Status: Never smoker alcohol intake: current alcohol intake frequency: a few times a month substance use type: does not use what type of physical activity do you participate in: walking and yoga Past Medical/Surgical History Planned Operation Planned Operative Procedure/s: COLONOSCOPY-OA Previous Hospitalizations/Surgeries HX Hospitalizations: No Any Problems With Anesthesia: No You/Your Family Experience Fever (Hyperthermia) With Anes: No Cholinesterase deficiency: No Cardiovascular Hx of Irregular Heartbeat and/or Afib: Yes Hx Heart Attack: No Hx Congestive Heart Failure: No Hx Hypertension: No Hx Internal Defibrillator: No Hx Pacemaker: No Respiratory Hx Chronic Obstructive Pulmonary Disease (COPD): No Hx Asthma: Yes Hx Emphysema: No Hx Sleep Apnea: No Hx Respiratory Tract Infection/Cold (presently): No Do You Snore Loudly (louder than talking or can be heard): No Do You Often Feel Tired/ Fatigued/ Sleepy Dring Daytime?: No Has Anyone Observed You Stop Breathing During Sleep?: No Result (for STOP score): Negative Smoking Status: Never smoker Gastrointestinal Hx Ulcer: No Neurological Hx Seizures: No Hx Multiple Sclerosis: No Hx Parkinson's Disease: No Hx Head/Neck Injury: No Hx Headaches: Yes Hx Back Injury/Pain: No Does patient have nerve stimulator: No Psycho/Social Hx Anxiety: No Hx Depression: No Allergies Penicillins Allergy (Mild, Verified 08/29/23 08:30) Rash Discharge Is Pt Admitted From a Correction, or a Snf: No After D/C, Where Do you Plan to Go: Return Home Physical Exam Const alert, oriented x3 and no apparent distress HEENT normocephalic and head/scalp atraumatic Resp normal respiratory effort Cardio regular rate GI soft to palpation and non-tender; Negative for non-distended Palpation: Negative for guarding Extremity no clubbing, cyanosis or edema Skin no rashes or lesions noted Neuro CN's II-XII intact bilaterally Psych mental status grossly normal Assessment & Plan Assessment/Plan (1) Encounter for screening for malignant neoplasm of colon: Surgery Risks - Colonoscopy I discussed with the patient the risks of the procedure: Yes Risks Include but are not Limited To: Risks include but are not limited to: Bleeding, perforation requiring further surgery, inability to complete colonoscopy requiring barium enema.
[2023-08-29] MEDS: Lactated Ringers 1,000 ML 15 ML IV (08:39)
--- NOTE | 2023-08-29 09:22 | OP.CCLET_ITS ---
08/29/2023 Frantz Cotter MD [address] [place] [address] [place] [address] Re : Colonoscopy procedure for Heather Nicholas Dear Dr. Cotter This procedure was performed on Tuesday, August 29, 2023. My impressions and recommendations are as follows: Impressions : - The entire examined colon is normal on direct and retroflexion views. - Non-bleeding external hemorrhoids. - No specimens collected. Recommendations : - Discharge patient to home. - Resume previous diet. - Continue present medications. - Repeat colonoscopy [day] depending on overall health at that time. My findings are described in the full procedure note, which is enclosed. If I can be of further assistance, please feel free to contact me at Doctor phone number(s): , Work: . Sincerely, MD Cat Carrasquillo MD 08/29/2023 9:22:01 AM This report has been signed electronically.
--- NOTE | 2023-08-29 09:22 | OP.COLON_ITS ---
Patient Name: Heather Nicholas Procedure Date: 08/29/2023 8:45 AM Date of : 1955 Age: 68 Procedure: Colonoscopy Indications: Screening for colorectal malignant neoplasm Providers: Cat Lowe MD Referring MD: Frantz Cotter MD Medicines: Monitored Anesthesia Care Patient Profile: This is a 68 year old female. Last Colonoscopy: 10 years ago. Complications: No immediate complications. Procedure: Pre-Anesthesia Assessment: - Prior to the procedure, a History and Physical was performed, and patient medications and allergies were reviewed. The patient's tolerance of previous anesthesia was also reviewed. The risks and benefits of the procedure and the sedation options and risks were discussed with the patient. All questions were answered, and informed consent was obtained. Prior Anticoagulants: The patient has taken no anticoagulant or antiplatelet agents. ASA Grade Assessment: Per anesthesia. After reviewing the risks and benefits, the patient was deemed in satisfactory condition to undergo the procedure. After I obtained informed consent, the scope was passed under direct vision. Throughout the procedure, the patient's blood pressure, pulse, and oxygen saturations were monitored continuously. The Colonoscope was introduced through the anus and advanced to the cecum, identified by the appendiceal orifice, ileocecal valve and palpation. The colonoscopy was performed without difficulty. The patient tolerated the procedure well. The quality of the bowel preparation was good. Scope In: Scope Withdrawal Time 0 hours 7 minutes 22 seconds Scope Out: 9:12:39 AM Findings: The perianal and digital rectal examinations were normal. The entire examined colon appeared normal on direct and retroflexion views. Non-bleeding external hemorrhoids were found. The hemorrhoids were small. Impression: - The entire examined colon is normal on direct and retroflexion views. - Non-bleeding external hemorrhoids. - No specimens collected. Recommendation: - Discharge patient to home. - Resume previous diet. - Continue present medications. - Repeat colonoscopy [day] depending on overall health at that time. Procedure Code(s): --- Professional --- G0121, PT, Colorectal cancer screening; colonoscopy on individual not meeting criteria for high risk Diagnosis Code(s): --- Professional --- Z12.11, Encounter for screening for malignant neoplasm of colon K64.4, Residual hemorrhoidal skin tags CPT copyright 2022 [employer]. All rights reserved. The codes documented in this report are preliminary and upon woodworking bench carpenter review may be revised to meet current compliance requirements. MD Cat Carrasquillo MD 08/29/2023 9:22:01 AM This report has been signed electronically. Number of Addenda: 0 Note Initiated On: 08/29/2023 8:45 AM
== END 2023-08-29 10:08 | disposition home or self-care (01) ==
LOC: EN 08:08 → AC 08:09
PROVIDERS: PCP Internal Medicine; Referring Provider Internal Medicine; Visit Provider Surgery
PROC: 0DJD8ZZ Inspection of Lower Intestinal Tract, Via Natural or Artificial Opening Endoscopic (ICD-10-PCS; CPT 45378; principal; 2023-08-29 09:10)
DX: Z12.11 Encounter for screening for malignant neoplasm of colon (principal); K64.4 Residual hemorrhoidal skin tags; J45.909 Unspecified asthma, uncomplicated; F32.A Depression, unspecified; F41.9 Anxiety disorder, unspecified; Z79.51 Long term (current) use of inhaled steroids; Z79.899 Other long term (current) drug therapy
CPT/HCPCS: G0121; J7120; J2405

== ENCOUNTER → 2023-11-28 | Outpatient (CLI) | payer MEDICARE, SELFPAY ==
[2023-11-28 12:20] LABS: Absolute Lymphocyte Count 1.02 X10^3/uL (0.83-4.51); Absolute Neutrophil Count 2.6 X10^3/uL (2.0-7.7); Basophil# 0.04 X10^3/uL; Eosinophil# 0.07 X10^3/uL; Eosinophils% 1.7 % (0-5); Hematocrit 41.6 % (37-47); Hemoglobin 13.1 g/dL (12.0-15.0); Lymphocyte # 1.02 X10^3/ul (0.83-4.51); Lymphocyte % 24.6 % (19-41); Mean Corp Hgb Conc 31.5 g/dL (32-36); Mean Corpuscular Hgb 29.2 pg (27.0-32.0); Mean Corpuscular Volume 92.7 fL (81-99); Mean Platelet Vol. 9.8 fl (6.2-12.0); Monocyte# 0.35 X10^3/uL; Monocyte% 8.5 % (0-10); NRBC Flagged by Analyzer 0 % (0-5); Neutrophil # 2.64 X10^3/uL (2.7-7.7); Neutrophil % 63.7 % (47-70); Platelet Count 291 K/mm3 (150-450); RBC Distribution Width CV 13.3 % (11.6-14.6); RBC Distribution Width SD 45.5 fl (35.1-43.9); Red Blood Count 4.49 M/mm3 (4.2-5.4); White Blood Count 4.1 K/mm3 (4.4-11.0)
[2023-11-28 13:16] LABS: Vitamin D,25 Hydroxy 50.3 ng/mL
[2023-11-28 13:22] LABS: AST(SGOT) 16 U/L (15-37); Alanine Aminotransfer ALT/SGPT 18 U/L (13-56); Albumin, Serum 3.5 g/dL (3.2-5.0); Alkaline Phosphatase 63 U/L (45-117); Anion Gap 5 (5-15); BUN 14 mg/dL (7-18); BUN/Creat Ratio 16.2 RATIO (10-20); Calcium,Total 9.3 mg/dL (8.5-10.1); Chloride 104 mmol/L (98-107); Cholesterol 252 mg/dL (200); Creatinine, Serum 0.86 mg/dL (0.55-1.02); EST Glomerular Filtration Rate 70 mL/min (>60); Est Glom Filt Rate - Afr Amer 84 mL/min (>60); Globulin 3.6 g/dL (2.2-4.2); Glucose 86 mg/dL (74-106); High Density Lipoprotein 61 mg/dL; Potassium 4.5 mmol/L (3.5-5.1); Protein, Total 7.1 g/dL (6.4-8.2); Sodium Level 139 mmol/L (136-145); Triglycerides 176 mg/dL; Very Low Density Lipoprotein 35 mg/dL (5-40)
== END | disposition home or self-care (01) ==
LOC: BIMLAB 10:58
PROVIDERS: PCP Internal Medicine; Referring Provider Internal Medicine; Visit Provider Internal Medicine
DX: E78.5 Hyperlipidemia, unspecified (principal); J45.40 Moderate persistent asthma, uncomplicated; M85.80 Other specified disorders of bone density and structure, unspecified site
CPT/HCPCS: 36415; 80053; 80061; 82306; 85025

== ENCOUNTER → 2024-06-04 | Outpatient (CLI) | payer MEDICARE, SELFPAY ==
[2024-06-04 15:43] LABS: Absolute Lymphocyte Count 0.91 X10^3/uL (0.83-4.51); Absolute Neutrophil Count 3.6 X10^3/uL (2.0-7.7); Basophil# 0.05 X10^3/uL; Eosinophil# 0.08 X10^3/uL; Eosinophils% 1.6 % (0-5); Hematocrit 38.3 % (37-47); Hemoglobin 12.3 g/dL (12.0-15.0); Lymphocyte # 0.91 X10^3/ul (0.83-4.51); Lymphocyte % 18.5 % (19-41); Mean Corp Hgb Conc 32.1 g/dL (32-36); Mean Corpuscular Hgb 29.9 pg (27.0-32.0); Mean Platelet Vol. 10.1 fl (6.2-12.0); Monocyte# 0.33 X10^3/uL; Monocyte% 6.7 % (0-10); NRBC Flagged by Analyzer 0 % (0-5); Neutrophil # 3.55 X10^3/uL (2.7-7.7); Platelet Count 267 K/mm3 (150-450); RBC Distribution Width CV 12.8 % (11.6-14.6); RBC Distribution Width SD 44.3 fl (35.1-43.9); Red Blood Count 4.12 M/mm3 (4.2-5.4); White Blood Count 4.9 K/mm3 (4.4-11.0)
[2024-06-04 15:50] LABS: Cholesterol 217 mg/dL (<=200); High Density Lipoprotein 58 mg/dL; Low Density Lipoprotein Calc. 127 mg/dL; Triglycerides 157 mg/dL; Very Low Density Lipoprotein 31 mg/dL (5-40); cholesterol:hdl ratio screen 3.72
[2024-06-04 17:06] LABS: ALB/GLOB Ratio 1.6 RATIO (0.9-2.4); AST(SGOT) 18 U/L (<=31); Alanine Aminotransfer ALT/SGPT < 5 U/L (<=34); Alkaline Phosphatase 62 U/L (35-104); Anion Gap 10 (5-15); BUN 16 mg/dL (4-19); BUN/Creat Ratio 18.8 RATIO (10-20); Calcium 9.1 mg/dL (7.6-11.0); Carbon Dioxide 26.5 mmol/L (22.0-29.0); Chloride 100 mmol/L (96-108); Creatinine, Serum 0.86 mg/dL (0.70-1.20); EST Glomerular Filtration Rate 75 (>60); Globulin 2.5 g/dL (2.2-4.2); Glucose 77 mg/dL (70-99); Potassium 4.4 mmol/L (3.3-5.1); Protein, Total 6.4 g/dL (5.9-8.4); Sodium Level 136 mmol/L (133-145); Total Bilirubin 0.42 mg/dL (0.00-1.30)
== END | disposition home or self-care (01) ==
LOC: BIMLAB 11:20
PROVIDERS: PCP Internal Medicine; Referring Provider Internal Medicine; Visit Provider Internal Medicine
DX: E78.5 Hyperlipidemia, unspecified (principal)
CPT/HCPCS: 36415; 80053; 80061; 85025

== ENCOUNTER → 2024-09-06 | Outpatient (CLI) | payer MEDICARE, SELFPAY ==
--- NOTE | 2024-09-06 16:43 | RAD_ITS ---
PROCEDURE: CHEST PA AND LATERAL 09/06/2024 REASON FOR EXAM: COUGH TECHNIQUE: Frontal and lateral views of the chest. COMPARISON: 01/18/2023 FINDINGS: No focal consolidations. No pleural effusion or pneumothorax. Cardiac silhouette is within normal limits. No acute fractures. RAD/Chest PA and Lateral IMPRESSION: No focal consolidation. Reading Location: [id number]
== END | disposition home or self-care (01) ==
LOC: MTRAD 16:43
PROVIDERS: PCP Internal Medicine; Referring Provider Physician Assistant; Visit Provider Physician Assistant
DX: R05.2 Subacute cough (principal)
CPT/HCPCS: 71046

== ENCOUNTER → 2024-09-27 | Outpatient (CLI) | payer MEDICARE, SELFPAY ==
--- NOTE | 2024-09-27 10:52 | RAD_ITS ---
PROCEDURE: TOE(S) MIN 2 VIEWS 09/27/2024 REASON FOR EXAM: TOE PAIN TECHNIQUE: TOE(S) MIN 2 VIEWS COMPARISON: Three-view left 3rd toe RAD/Toe(s) Min 2 Views IMPRESSION: A comminuted intra-articular fracture of the distal portion of the left 3rd toe proximal phalanx is seen. No additional fracture site is evident. Reading Location: [facility]
== END | disposition home or self-care (01) ==
LOC: MTRAD 10:46
PROVIDERS: PCP Internal Medicine; Referring Provider Physician Assistant; Visit Provider Physician Assistant
DX: M79.675 Pain in left toe(s) (principal)
CPT/HCPCS: 73660

== ENCOUNTER → 2024-12-02 | Outpatient (CLI) | payer MEDICARE, SELFPAY ==
[2024-12-02 18:30] LABS: AST(SGOT) 17 U/L (<=31); Alanine Aminotransfer ALT/SGPT 10 U/L (<=34); Albumin, Serum 4.1 g/dL (3.4-4.8); Alkaline Phosphatase 54 U/L (35-104); Anion Gap 10 (5-15); BUN 17 mg/dL (4-19); BUN/Creat Ratio 18.4 RATIO (10-20); Calcium,Total 9.2 mg/dL (7.6-11.0); Carbon Dioxide 27.0 mmol/L (21.0-32.0); Chloride 100 mmol/L (98-108); Cholesterol 219 mg/dL (<=200); Globulin 2.5 g/dL (2.2-4.2); Glucose 79 mg/dL (70-99); Low Density Lipoprotein Calc. 122 mg/dL; Potassium 4.1 mmol/L (3.3-5.1); Triglycerides 182 mg/dL; Very Low Density Lipoprotein 36 mg/dL (5-40); Vitamin D,25 Hydroxy 57.6 ng/mL (30-100); cholesterol:hdl ratio screen 3.64
[2024-12-02 18:39] LABS: Hematocrit 37.4 % (37-47); Hemoglobin 12.1 g/dL (12.0-15.0); Immature Granulocytes Count 0.000 X10^3/uL (0.0-0.0); Mean Corp Hgb Conc 32.4 g/dL (32-36); Mean Corpuscular Volume 90.8 fL (81-99); Mean Platelet Vol. 10.0 fl (6.2-12.0); NRBC Flagged by Analyzer 0 % (0-5); Platelet Count 267 K/mm3 (150-450); RBC Distribution Width CV 13.2 % (11.6-14.6); RBC Distribution Width SD 43.8 fl (35.1-43.9); Red Blood Count 4.12 M/mm3 (4.2-5.4); White Blood Count 3.7 K/mm3 (4.4-11.0)
== END | disposition home or self-care (01) ==
PROVIDERS: PCP Internal Medicine; Referring Provider Internal Medicine; Visit Provider Internal Medicine
DX: E78.5 Hyperlipidemia, unspecified (principal); M85.80 Other specified disorders of bone density and structure, unspecified site; F32.A Depression, unspecified; F41.9 Anxiety disorder, unspecified
CPT/HCPCS: 36415; 80053; 80061; 82306; 85025

== ENCOUNTER → 2025-02-18 | Outpatient (CLI) | payer MEDICARE, SELFPAY ==
[2025-02-18 09:57] LABS: CRP < 3.00 mg/L (0.0-3.0)
[2025-02-23 04:07] LABS: IgG, Quant 1019 mg/dL (586-1602); Immunoglobulin G, Subclass 1 653 mg/dL (248-810); Immunoglobulin G, Subclass 2 227 mg/dL (130-555); Immunoglobulin G, Subclass 3 22 mg/dL (15-102); Immunoglobulin G, Subclass 4 36 mg/dL (2-96)
== END | disposition home or self-care (01) ==
LOC: LAB 08:32
PROVIDERS: PCP Internal Medicine; Referring Provider Internal Medicine; Visit Provider Internal Medicine
DX: R09.89 Other specified symptoms and signs involving the circulatory and respiratory systems (principal); R05.3 Chronic cough; J45.40 Moderate persistent asthma, uncomplicated
CPT/HCPCS: 36415; 82784; 82785; 82787; 85652; 86140

== ENCOUNTER → 2025-03-15 | Outpatient (CLI) | payer MEDICARE, SELFPAY ==
--- NOTE | 2025-03-15 15:46 | CT_ITS ---
PROCEDURE: CHEST WITH CONTRAST 03/15/2025 REASON FOR EXAM: COUGH AND CHEST CONGESTION TECHNIQUE: Procedure Code: CTCHW Modality: CT Procedure: CHEST WITH CONTRAST Coronal and Sagittal reconstruction series were provided. CONTRAST: Isovue 370 VOLUME: 100 mL One or more dose reduction techniques were used (e.g., Automated exposure control, adjustment of the mA and/or kV according to patient size, use of iterative reconstruction technique). RADIATION DOSE SUMMARY: CTDlvol: 16.62 mGy DLP: 19.0.44 mGycm COMPARISON: 6.2.2024 radiograph was reviewed FINDINGS: No suspicious-appearing soft tissue pulmonary nodule or mass. There is no focal infiltrate or consolidation. A small left lower lobe apical segment ground glass patch possibly mild inflammatory, recommend clinical correlation. There are no pleural effusions. No pneumothorax is seen. No mediastinal or hilar adenopathy is identified. Thyroid gland right lobe hypodense nodule is seen, recommend ultrasound assessment. The central airways are patent. The chest wall appears unremarkable. No axillary adenopathy is identified. The thoracic aorta is patent and shows fusiform dilatation measuring 4.5 cm along its lateral dimensions. Cardiomegaly is seen. There are no appreciable coronary artery calcifications. No pericardial effusion is identified. No aggressive-appearing osseous lesions are identified. The included abdominal cuts show no gross abnormality. CT/Chest WITH Contrast IMPRESSION: 1. A small left lower lobe apical segment ground glass patch possibly mild inf lammatory, recommend clinical correlation. 2. Cardiomegaly. 3. A 4.5 cm fusiform dilatation of the ascending aorta. Reading [facility] [id number]
--- OUTSIDE RECORDS SUMMARY | 2025-03-15 19:03 | XMS RPT_ITS | CCD ---
Author Organization [facility] Care Team Providers Care Picker And Sorter Load And Unload Name Role Phone Cecilio Nick REDDY Primary Care Provider Dr. Cathy Sheikh Primary Care Provider [phone] Cathy Sheikh Referring Provider Dr. Frantz Cotter Attending Provider [phone] Cathy Sheikh MD Primary Care Provider Dr. Frantz Cotter Primary Care Provider [phone] Dr. Frantz Cotter Referring Provider [phone] ALEX Yeh Attending Provider Dr. Maty Heredia Attending Provider [phone] ALEX Ward Attending Provider Dr. Frantz Cotter Primary Care Provider [phone]) Dr. Frantz Cotter Referring Provider [phone] ALEX Yeh Attending Provider Dr. Maty Heredia Attending Provider [phone] ALEX Ward Attending Provider Dr. Frantz Cotter Attending Provider [phone] Dr. Frantz Cotter Other Provider [phone] Dr. Hiram Jackson Attending Provider Dr. Frantz Cotter Primary Care Provider [phone] [phone]) Dr. Frantz Cotter Attending Provider [phone] Cyndee, Dr. Landry Referring Provider [phone] Cyndee, Dr. Landry Other Provider [phone] Dr. Hiram Jackson Attending Provider Cristin Helms Attending Provider Unavailable Dr. Eduardo Christie Attending Provider Dr. Frantz Cotter Primary Care Provider [phone] Cyndee, Dr. Landry Attending Provider [phone] Cyndee, Dr. Landry Referring Provider [phone] Cathy Sheikh MD Primary Care Provider Nick Hernandes DO Primary Care Provider [phone] Cyndee CARREON, Dr. Landry Primary Care Provider Cyndee CARREON, Dr. Landry Attending Provider [phone] Dr. Frantz Cotter MD Referring Provider [phone] Sandra ALVAREZ-C, Al Attending Provider Emeterio Rausch Attending Provider Alfie Ward Attending Provider [phone] Alfie Ward Referring Provider Cathy Sheikh MD Primary Care Provider Dr. Frantz Cotter MD Primary Care Provider Dr. Frantz Cotter MD Referring Provider [phone]) Dr. Frantz Cotter MD Attending Provider [phone] CATHY SHEIKH Primary Care Unavailable GRIFFITHS, ANA Referring Unavailable KEIKO, ANA Referring Unavailable KEIKO, ANA Attending Unavailable CATHY SHEIKH Primary Care Unavailable CATHY SHEIKH Primary Care Unavailable ELIZABETH HANDY Attending Unavailable Oleghe, Efewongbe Attending Unavailable Oleghe, Efewongbe Primary Care Unavailable Oleghe, Efewongbe Referring Unavailable Oleghe, Efewongbe Referring Unavailable Joann Ivory Attending Unavailable Oleghe, Efewongbe Primary Care Unavailable Oleghe, Efewongbe Attending Unavailable Oleghe, Efewongbe Primary Care Unavailable Oleghe, Efewongbe Referring Unavailable Alfie Ward Attending Unavailable Oleghe, Efewongbe Primary Care Unavailable Alfie Ward Referring Unavailable Oleghe, Efewongbe Primary Care Unavailable Alfie Ward Referring Unavailable Alfie Ward Attending Unavailable Oleghe, Efewongbe Attending Unavailable Oleghe, Efewongbe Primary Care Unavailable Oleghe, Efewongbe Referring Unavailable Oleghe, Efewongbe Attending Unavailable Oleghe, Efewongbe Primary Care Unavailable Oleghe, Efewongbe Referring Unavailable Alfie Ward Attending Unavailable Oleghe, Efewongbe Primary Care Unavailable Oleghe, Efewongbe Referring Unavailable Alfie Ward Attending Unavailable Oleghe, Efewongbe Primary Care Unavailable Oleghe, Efewongbe Referring Unavailable Oleghe, Efewongbe Attending Unavailable Oleghe, Efewongbe Referring Unavailable Oleghe, Efewongbe Primary Care Unavailable Oleghe, Efewongbe Primary Care Unavailable Oleghe, Efewongbe Referring Unavailable Alfie Ward Attending Unavailable Oleghe, Efewongbe Attending Unavailable Oleghe, Efewongbe Primary Care Unavailable Oleghe, Efewongbe Referring Unavailable Oleghe, Efewongbe Primary Care Unavailable Oleghe, Efewongbe Referring Unavailable Emeterio Rausch Attending Unavailable Oleghe, Efewongbe Primary Care Unavailable Oleghe, Efewongbe Referring Unavailable Al Flores Attending Unavailable Cyndee CARREON, Dr. Landry Primary Care Physician Dr. Frantz Cotter MD Referring Provider [phone] Alfie Ward Attending Physician [phone] Cyndee CARREON, Dr. Landry Attending Physician Joann Luciano Attending Physician Allergies Allergy Classification Reported Allergen(s) Allergy Type Date of Onset Reaction(s) Facility (5 sources) Penicillins; Translations: [PENICILLINS] Drug Allergy 03-05-2012 [facility] Work Phone: (16 sources) Penicillins Allergy to substance 07-12-2022 [facility] (7 sources) Penicillins Drug Allergy 03-05-2012 [facility] Work Phone: (3 sources) Penicillins Drug Allergy 03-05-2012 [facility] Work Phone: (1 source) Penicillins Drug allergy (disorder) 12-02-2024 [facility] Medications Current Medications Medication Drug Class(es) Dates Sig (Normalized) Sig (Original) AIRSUPRA 90-80 mcg/actuation inhaler (2 sources) Start: 07-23-2024 take 2 puff(s) by inhalation every four hours as needed AIRSUPRA 90-80 mcg/actuation inhaler Inhale 2 puffs as instructed every 4 hours as needed. 07/23/2024 Active [id number] 200 actuat albuterol 0.09 mg/actuat metered dose inhaler (20 sources) beta2-Adrenergic Agonist Start: 09-20-2024 Start: 01-14-2023 End: 02-26-2023 Albuterol Sulfate 90 mcg/act uation HFA aerosol inhaler Discontinued 2 NMA INHALATION 6 times per day as needed for shortness of breath or wheezing 8.5 0 January 14, 2023 12:00am February 26, 2023 12:12pm Start: 01-14-2023 End: 02-26-2023 Albuterol Sulfate Discontinu ed 2 PUFF INHALATION 6 times per day 8.5 January 14, 2023 12:00am February 26, 2023 12:12pm Start: 07-12-2022 End: 06-14-2024 Albuterol Sulfate 90 mcg/act uation HFA aerosol inhaler Discontinued 2 NMA INHALATION EVERY 6 HOURS as needed for shortness of breath or wheezing 8.5 1 May 30, 2023 11:58am June 14, 2024 12:39pm Start: 07-12-2022 End: 05-30-2023 take 1 puff(s) by inhalation every six hours Albuterol Sulfate Discontinued 2 PUFF INHALATION EVERY 6 HOURS 8.5 January 01, 2023 9:37am May 30, 2023 11:58am End: 11-18-2024 ALBUTEROL INHALATION Inhale 2 Puffs as instructed as needed. 11/18/2024 Discontinued ALBUTEROL INHALA TION Inhale 2 Puffs as instructed as needed. Active ALBUTEROL INHALA TION Inhale 2 Puffs as instructed as needed. 0 Active Comment on above: Inhale 2 Puffs as in structed as needed. Arm Brace (Mindy Elbow Brace) misc (16 sources) Start: 07-12-2022 Arm Brace (Mindy Elbow Brace) misc Active 0 .Route 1 3 July 12, 2022 12:00am Right elbow pain Pain in right elbow As directed Start: 07-12-2022 Arm Brace (Mindy Elbow Brace) misc Active 0 .Route 1 July 11, 2022 11:00pm As directed Start: 07-12-2022 Arm Brace (Mindy Elbow Brace) misc Active 0 .Route 1 July 12, 2022 12:00am As directed calcium carbonate 1500 mg / cholecalciferol 800 unt oral tablet (10 sources) Vitamin D Start: 11-28-2023 Calcium Carbonate / vitamin D3 (9 sources) take 1 tablet by mouth twice daily calcium carbonate/vitami n D3 (CALCIUM + D ORAL) Take 1 tablet by mouth twice daily. Active take 1 tablet by mouth twice ata ly calcium carbonate/vitamin D3 (CALCIUM + D ORAL) Take 1 tablet by mouth twice daily. 0 Active take 1.5 tablets by mouth once d aily calcium carbonate/vitamin D3 (CALCIUM + D ORAL) Take 1.5 tablets by mouth once daily. 0 Active Comment on above: Take 1.5 tablets by mouth once daily. Take 1 tablet by abel th twice daily. cholecalciferol, vitamin D3, (VITAMIN D3 ORAL) (14 sources) End: 11-18-2024 take 5000 [IU] by mouth once daily cholecalciferol, vitamin D3, (VITAMIN D3 ORAL) Take 5,000 Units by mouth once daily. 11/18/2024 Discontinued take 5000 [IU] by mouth once ata ly cholecalciferol, vitamin D3, (VITAMIN D3 ORAL) Take 5,000 Units by mouth once daily. Active take 5000 [IU] by mouth once ata ly cholecalciferol, vitamin D3, (VITAMIN D3 ORAL) Take 5,000 Units by mouth once daily. 0 Active take 2000 [IU] by mouth once ata ly cholecalciferol, vitamin D3, (VITAMIN D3 ORAL) Take 2,000 Units by mouth once daily. 0 Active take 1 tablet by mouth once charlie y cholecalciferol, vitamin D3, (VITAMIN D3 ORAL) Take 1 tablet by mouth once daily. 0 Active Comment on above: Take 1 tablet by abel th once daily. Take 2,000 Units by mouth once daily. Take 5,000 Units by mouth once daily. clobetasol propionate 0.5 mg/ml topical solution (2 sources) Corticosteroid Start: Clobetasol Propionate (TEMOVATE) 0.05 % external solution Apply 1 application to affected area two times a day. As needed 08/09/2024 Active dextromethorphan hydrobromide 15 mg oral capsule (20 sources) Uncompetitive S-osvtlc-T-aspartate Receptor Antagonist, Sigma-1 Agonist Start: End: take 1 capsule by mouth every eight hours as needed for cough Start: 06-09-2024 End: 06-25-2024 take 1 capsule by mouth every eight hours as needed for cough Dextromethorphan Hbr (Tussin Cough (Dm Only)) 15 mg capsule Discontinued 15 mg PO Q8H as needed for cough 10 June 09, 2024 1:00am June 25, 2024 8:29am Start: 01-23-2023 End: 01-23-2023 take 1 tablet by mouth once as needed Dextromethorphan Hbr (Delsym Cough) 15 mg tablet Discontinued 30 mg PO ONCE as needed January 23, 2023 12:00am January 23, 2023 4:41pm doxycycline monohydrate 100 mg oral capsule (20 sources) Tetracycline-class Drug Start: 11-09-2024 take 1 capsule b y mouth twice daily Start: 09-06-2024 End: 09-20-2024 take 1 capsule by mouth twice daily Doxycycline Monohydrate 100 mg capsule Discontinued 100 mg PO TWICE A DAY September 06, 2024 12:00am September 20, 2024 8:02am Start: 06-09-2024 End: 06-25-2024 take 1 capsule by mouth twice daily Doxycycline Monohydrate 100 mg capsule Discontinued 100 mg PO TWICE A DAY 14 0 June 09, 2024 1:00am June 25, 2024 8:29am Start: 09-30-2023 End: 11-28-2023 take 1 capsule by mouth twice daily Doxycycline Monohydrate 100 mg capsule Discontinued 100 mg PO TWICE A DAY 10 September 30, 2023 12:00am November 28, 2023 10:01am Start: 01-01-2023 End: 01-23-2023 take 1 tablet by mouth once daily Doxycycline Hyclate 100 mg tablet Discontinued 100 mg PO DAILY 10 January 01, 2023 12:00am January 23, 2023 1:44pm famotidine 10 mg oral tablet (16 sources) Histamine-2 Receptor Antagonist Start: 07-12-2022 take 1 tablet by mouth once daily before mealtime Inhalational Spacing Device (Breatherite Mdi Spacer) spacer (14 sources) Start: 01-18-2023 Inhalational Spacing Device (Breatherite Mdi Spacer) spacer Active 0 .Route 1 January 18, 2023 12:00am As directed Start: 01-18-2023 Inhalational S pacing Device (Breatherite Mdi Spacer) spacer Active 0 .Route 1 January 17, 2023 11:00pm As directed Start: 01-18-2023 Inhalational S pacing Device (Breatherite Mdi Spacer) spacer Active 0 .Route 1 January 18, 2023 12:00am As directed OTC PRODUCT (9 sources) take 1 tablet by abel th every other day OTC PRODUCT Anti Acid: Take one tablet by mouth every other day. Active OTC PRODUCT Anti Acid: Take one tablet by mouth every other day. 0 Active OTC PRODUCT Anit -Acid: Take one tablet by mouth every other day. 0 Active Comment on above: Anit-Acid: Take one tablet by mouth every other day. Anti Acid: Take one tablet by mouth every other day. SUMAtriptan 50 mg oral tablet (20 sources) Serotonin-1b and Serotonin-1d Receptor Agonist Start: 08-08-2023 End: 01-03-2025 take 1 tablet by mouth every two hours Start: 09-05-2022 End: 08-08-2023 take 1 tablet by mouth once daily as needed Sumatriptan Succinate 50 mg tablet Discontinued 50 mg PO daily as needed January 23, 2023 1:45pm August 08, 2023 4:31pm Start: 07-12-2022 End: 09-05-2022 Sumatriptan Succinate 50 mg tablet Discontinued NMA PO July 12, 2022 12:00am September 05, 2022 11:20am Start: 07-12-2022 End: 09-05-2022 Sumatriptan Succinate Discon tinued EACH PO July 11, 2022 11:00pm September 05, 2022 10:20am Start: 07-12-2022 End: 09-05-2022 Sumatriptan Succinate Discon tinued EACH PO July 12, 2022 12:00am September 05, 2022 11:20am Start: 07-12-2022 Sumatriptan Mojica ccinate Active EACH PO July 12, 2022 12:00am Comment on above: Take 50 mg by mouth as needed. Completed/Discontinued Medications Medication Drug Class(es) Dates Sig (Normalized) Sig (Original) Albuterol-Budesonid e (1 source) Start: 06-14-2024 End: 09-20-2024 Albuterol-Budesonide (Airsupra) 90-80 mcg/actuation HFA aerosol inhaler Discontinued 2 NMA INHALATION ONCE as needed for shortness of breath 10.7 1 June 14, 2024 12:00am September 20, 2024 8:20am as a single dose; may repeat up to 6 doses per day (12 inhalations) Albuterol-Budesonid e (Airsupra) 90-80 mcg/actuation HFA aerosol inhaler (9 sources) Start: 06-14-2024 End: 09-20-2024 Albuterol-Budesonide (Airsupra) 90-80 mcg/actuation HFA aerosol inhaler Discontinued 2 NMA INHALATION ONCE as needed for shortness of breath 10.7 1 June 14, 2024 12:00am September 20, 2024 8:20am as a single dose; may repeat up to 6 doses per day (12 inhalations) Start: 06-14-2024 End: 09-20-2024 Albuterol-Budesonide (Airsup ra) 90-80 mcg/actuation HFA aerosol inhaler Discontinued 2 NMA INHALATION ONCE as needed for shortness of breath 10.7 June 14, 2024 12:00am September 20, 2024 8:20am as a single dose; may repeat up to 6 doses per day (12 inhalations) Start: 06-14-2024 Albuterol-Hedrick sonide (Airsupra) 90-80 mcg/actuation HFA aerosol inhaler Active 2 NMA INHALATION ONCE as needed for shortness of breath 10.7 June 14, 2024 12:00am as a single dose; may repeat up to 6 doses per day (12 inhalations) benzonatate 200 mg oral capsule (20 sources) Non-narcotic Antitussive Start: 01-23-2023 End: 02-26-2023 Benzonatate 200 mg capsule Discontinued 200 mg PO 2 to 3 times per day as needed for cough 90 1 January 23, 2023 12:00am February 26, 2023 12:12pm Start: 01-01-2023 End: 01-23-2023 take 1 capsule by mouth three times daily as needed for cough Benzonatate 100 mg capsule Discontinued 100 mg PO THREE TIMES A DAY as needed for cough 30 0 January 01, 2023 12:00am January 23, 2023 1:39pm Budesonide-Formoterol (20 sources) Corticosteroid, beta2-Adrenergic Agonist Start: 02-18-2024 End: 02-20-2024 Budesonide-Formoterol (Breyna) 160-4.5 mcg/actuation HFA aerosol inhaler Discontinued 2 NMA INHALATION TWICE A DAY 10.2 2 February 18, 2024 6:21pm February 20, 2024 5:53pm Start: 02-18-2024 End: 02-20-2024 Budesonide-Formoterol (Breyn a) 160-4.5 mcg/actuation HFA aerosol inhaler Discontinued 2 NMA INHALATION TWICE A DAY 10.2 February 18, 2024 6:21pm February 20, 2024 5:53pm Start: 08-27-2023 End: 02-18-2024 Budesonide-Formoterol (Breyn a) 160-4.5 mcg/actuation HFA aerosol inhaler Discontinued 2 NMA INHALATION TWICE A DAY August 27, 2023 12:00am February 18, 2024 6:22pm Start: 05-30-2023 End: 08-27-2023 Budesonide-Formoterol (Symbi brigido) 160-4.5 mcg/actuation HFA aerosol inhaler Discontinued 2 NMA INHALATION TWICE A DAY 10.2 3 May 30, 2023 11:58am August 27, 2023 2:29pm Start: 05-30-2023 End: 08-27-2023 Budesonide-Formoterol (Symbi brigido) 160-4.5 mcg/actuation HFA aerosol inhaler Discontinued 2 NMA INHALATION TWICE A DAY 10.2 May 30, 2023 11:58am August 27, 2023 2:29pm Start: 05-30-2023 take 1 puff(s) by in halation twice daily Budesonide-Formoterol (Symbicort) 160-4.5 mcg/actuation HFA aerosol inhaler Active 2 PUFF INHALATION TWICE A DAY 10.2 May 30, 2023 11:58am Start: 02-26-2023 End: 05-30-2023 Budesonide-Formoterol (Symbi brigido) 160-4.5 mcg/actuation HFA aerosol inhaler Discontinued 2 NMA INHALATION TWICE A DAY 10.2 5 February 26, 2023 12:35pm May 30, 2023 11:58am Start: 02-26-2023 End: 05-30-2023 Budesonide-Formoterol (Symbi brigido) 160-4.5 mcg/actuation HFA aerosol inhaler Discontinued 2 NMA INHALATION TWICE A DAY 10.2 February 26, 2023 12:35pm May 30, 2023 11:58am Start: 02-26-2023 End: 05-30-2023 take 1 puff(s) by inhalation twice daily Budesonide-Formoterol (Symbicort) 160-4.5 mcg/actuation HFA aerosol inhaler Discontinued 2 PUFF INHALATION TWICE A DAY 10.2 February 26, 2023 12:35pm May 30, 2023 11:58am Start: 02-26-2023 take 1 puff(s) by in halation twice daily Budesonide-Formoterol (Symbicort) 160-4.5 mcg/actuation HFA aerosol inhaler Active 2 PUFF INHALATION TWICE A DAY 10.2 February 26, 2023 11:35am Start: 01-23-2023 End: 02-26-2023 Budesonide-Formoterol (Symbi brigido) 160-4.5 mcg/actuation HFA aerosol inhaler Discontinued 2 NMA INHALATION TWICE A DAY 10.2 1 January 23, 2023 12:00am February 26, 2023 12:35pm Start: 01-23-2023 End: 02-26-2023 Budesonide-Formoterol (Symbi brigido) 160-4.5 mcg/actuation HFA aerosol inhaler Discontinued 2 NMA INHALATION TWICE A DAY 10.2 January 23, 2023 12:00am February 26, 2023 12:35pm Start: 01-23-2023 End: 02-26-2023 take 1 puff(s) by inhalation twice daily Budesonide-Formoterol (Symbicort) 160-4.5 mcg/actuation HFA aerosol inhaler Discontinued 2 PUFF INHALATION TWICE A DAY 10.2 January 23, 2023 12:00am February 26, 2023 12:35pm Start: 01-23-2023 End: 02-26-2023 take 1 puff(s) by inhalation twice daily Budesonide-Formoterol (Symbicort) 160-4.5 mcg/actuation HFA aerosol inhaler Discontinued 2 PUFF INHALATION TWICE A DAY 10.2 January 22, 2023 11:00pm February 26, 2023 11:35am calcium carbonate 1500 mg or al tablet (16 sources) Start: 07-12-2022 End: 06-04-2024 Calcium Carbonate (Calcium 6 00) 600 mg calcium (1,500 mg) tablet Discontinued 1200 mg PO DAILY July 12, 2022 12:00am June 04, 2024 11:45am Start: 07-12-2022 Calcium Carbon ate (Calcium 600) 600 mg calcium (1,500 mg) tablet Active 905 MG PO DAILY July 12, 2022 12:00am cholecalciferol 0.075 mg oral tablet (16 sources) Vitamin D Start: 07-12-2022 End: 06-04-2024 take 1 tablet by mouth once daily Cholecalciferol (Vitamin D3) 75 mcg (3,000 unit) tablet Discontinued 25 ug PO DAILY July 12, 2022 12:00am June 04, 2024 11:45am citalopram 20 mg oral tablet (20 sources) Serotonin Reuptake Inhibitor Start: 07-12-2022 End: 11-08-2024 take 1 tablet by mouth once daily Citalopram 20 mg tablet Discontinued 20 mg PO DAILY 90 1 July 23, 2024 1:11pm November 08, 2024 10:24am Start: 07-12-2022 End: 01-01-2023 Citalopram 20 mg tablet Disc ontinued NMA PO July 12, 2022 12:00am January 01, 2023 11:02am Comment on above: Take 20 mg by mouth once daily. clindamycin 300 mg oral capsule (15 sources) Lincosamide Antibacterial Start: 01-15-20 End: 02-27-20 take 1 capsule by mouth three times daily Clindamycin Hcl 300 mg capsule Discontinued 300 mg PO THREE TIMES A DAY 30 0 January 14, 2023 12:00am February 26, 2023 12:13pm codeine phosphate 1.5 mg/ml / guaiFENesin 45 mg/ml oral solution (15 sources) Opioid Agonist Start: 01-19-20 End: 01-24-20 take 1 mL by mouth once daily in the evening Codeine-Guaifenesin 7.5-225 mg/5 mL liquid Discontinued 5 mL PO EVERY EVENING 35 7 0 January 18, 2023 12:00am January 23, 2023 1:40pm Start: 01-18-2023 End: 01-23-2023 take 1 mL by mouth once daily in the evening Codeine-Guaifenesin Discontinued 5 ML PO EVERY EVENING 35 7 January 18, 2023 12:00am January 23, 2023 1:40pm dextromethorphan hydrobromide 1 mg/ml / guaiFENesin 20 mg/ml / phenylephrine hydrochloride 0.5 mg/ml oral solution (13 sources) Uncompetitive M-fgmpge-D-aspartate Receptor Antagonist, Sigma-1 Agonist, alpha-1 Adrenergic Agonist Start: 01-23-2023 End: 01-23-2023 take 1 mL by mouth twice daily as needed Wfiedjemlkkkn-Pk-Znwxjnokkuv (Mucinex Fast-Max Congest-Cough) 2.5-5-100 mg/5 mL liquid Discontinued mL PO .twice daily as needed January 23, 2023 12:00am January 23, 2023 4:40pm Start: 01-23-2023 End: 01-23-2023 take 1 mL by mouth twice daily Vrzxtobqwvovo-Gy-Ekpnwbtjokv (Mucinex Fast-Max Congest-Cough) 2.5-5-100 mg/5 mL liquid Discontinued ML PO .twice daily January 23, 2023 12:00am January 23, 2023 4:40pm 12 hr fexofenadine hydrochloride 60 mg / pseudoephedrine hydrochloride 120 mg extended release oral tablet (15 sources) alpha-Adrenergic Agonist, Histamine-1 Receptor Antagonist Start: 01-18-2023 End: 01-23-2023 take 1 tablet by mouth every twelve hours as needed Fexofenadine-Pseudoephedrine (Jennifer-D 12 Hour) 60-120 mg tablet extended release 12 hr Discontinued 1 {tbl} PO Q12H as needed for sinus symptoms 14 14 0 January 18, 2023 12:00am January 23, 2023 4:41pm Fluticasone Propion-Salmetero l (10 sources) Corticosteroid, beta2-Adrenergic Agonist Start: 02-20-2024 End: 03-10-2024 Fluticasone Propion-Salmeter ol 100-50 mcg/dose blister with device Discontinued 1 NMA INHALATION Q12H 60 3 February 20, 2024 1:00am March 10, 2024 4:35pm Start: 02-20-2024 End: 03-10-2024 Fluticasone Propion-Salmeter ol 100-50 mcg/dose blister with device Discontinued 1 NMA INHALATION Q12H 60 February 20, 2024 1:00am March 10, 2024 4:35pm 30 actuat fluticasone furoate 0.1 mg/actuat / vilanterol 0.025 mg/actuat dry powder inhaler (10 sources) Corticosteroid, beta2-Adrenergic Agonist Start: 03-10-2024 End: 06-04-2024 Fluticasone Furoate-Vilanterol (Breo Ellipta) 100-25 mcg/dose blister with device Discontinued 1 NMA INHALATION Q24H 60 0 March 10, 2024 1:00am June 04, 2024 11:45am 120 actuat formoterol fumarate 0.005 mg/actuat / mometasone furoate 0.1 mg/actuat metered dose inhaler (3 sources) Corticosteroid, beta2-Adrenergic Agonist Start: 03-15-2024 End: 04-14-2024 Mometasone-Formoterol (Dulera) 100-5 mcg/actuation HFA aerosol inhaler Discontinued 2 NMA INHALATION TWICE A DAY 13 30 0 March 15, 2024 1:00am April 13, 2024 1:00am April 14, 2024 1:10am End: 11-18-2024 take 2 puff(s) by inhalation twice daily mometasone-formoterol (DULERA) 50-5 mcg/actuation HFA aerosol inhaler Inhale 2 puffs as instructed two times a day. 11/18/2024 Discontinued Magnesium (16 sources) Start: 07-12-2022 End: 08-27-2023 take 1 tablet by mouth once daily Magnesium 200 mg tablet Discontinued 200 mg PO DAILY July 12, 2022 12:00am August 27, 2023 2:30pm Start: 07-12-2022 take 200 mg by mouth once charlie y Magnesium Active 200 MG PO DAILY July 11, 2022 11:00pm Start: 07-12-2022 take 200 mg by mouth once charlie y Magnesium Active 200 MG PO DAILY July 12, 2022 12:00am methylPREDNISolone 4 mg oral tablet (20 sources) Corticosteroid Start: 11-09-2024 End: 12-02-2024 take 1 tablet by mouth once Methylprednisolone (Medrol (Stephon)) 4 mg tablets,dose pack Discontinued 0 PO per package directions November 09, 2024 12:00am December 02, 2024 2:37pm PO PER PKG DIR Start: 09-06-2024 End: 09-20-2024 take 1 tablet by mouth once Methylprednisolone (Medrol (Stephon)) 4 mg tablets,dose pack Discontinued 0 PO per package directions September 06, 2024 12:00am September 20, 2024 8:02am PO PER PKG DIR Start: 12-26-2022 End: 01-01-2023 take 1 tablet by mouth once Methylprednisolone (Medrol (Stephon)) 4 mg tablets,dose pack Discontinued 4 mg PO per package directions 21 6 0 December 26, 2022 12:00am December 31, 2022 12:00January 01, 2023 12:04am Mometasone-Formoterol (Duler a) 100-5 mcg/actuation HFA aerosol inhaler (9 sources) Start: 03-15-2024 End: 04-14-2024 Mometasone-Formoterol (Duler a) 100-5 mcg/actuation HFA aerosol inhaler Discontinued 2 NMA INHALATION TWICE A DAY 13 March 15, 2024 1:00am April 13, 2024 1:00am April 14, 2024 1:10am Start: 03-15-2024 End: 04-14-2024 Mometasone-Formoterol (Duler a) 100-5 mcg/actuation HFA aerosol inhaler Discontinued 2 NMA INHALATION TWICE A DAY March 15, 2024 1:00am April 13, 2024 1:00am April 14, 2024 1:10am PAPAYA ENZYME ORAL (5 sources) End: 10-19-2021 take 3 tablets by mouth at mealtime as needed PAPAYA ENZYME ORAL Take 3 tablets by mouth after each meal as needed. 10/19/2021 Discontinued take 3 tablets by mo uth at mealtime as needed PAPAYA ENZYME ORAL Take 3 tablets by mouth after each meal as needed. 0 Active Comment on above: Take 3 tablets by mo uth after each meal as needed. predniSONE 20 mg oral tablet (20 sources) Start: 01-18-2023 End: 01-23-2023 take 2 tablets by mouth once daily Prednisone 20 mg tablet Discontinued 40 mg PO DAILY 8 January 18, 2023 12:00January 23, 2023 1:45pm Start: 01-18-2023 End: 01-23-2023 take 40 mg by mouth once daily Prednisone Discontinued 40 MG PO DAILY 8 January 18, 2023 12:00am January 23, 2023 1:45pm Start: 01-01-2023 End: 01-06-2023 take 2 tablets by mouth once daily Prednisone 20 mg tablet Discontinued 40 mg PO DAILY 10 January 01, 2023 12:00am January 05, 2023 12:00am January 06, 2023 12:04am Start: 01-01-2023 End: 01-06-2023 take 40 mg by mouth once daily Prednisone Discontinued 40 MG PO DAILY 10 January 01, 2023 12:00am January 06, 2023 12:04am Start: 09-01-2021 End: 09-06-2021 take 2 tablets by mouth once daily predniSONE (DELTASONE) 20 mg tablet Indications: URI, acute , History of asthma Take 2 tablets by mouth once daily for 5 days. 10 tablet 0 09/01/2021 09/06/2021 Active Comment on above: Take 2 tablets by mo uth once daily for 5 days. Problems Active Problems Problem Classification Problem Date Documented Date Episodic/Chronic Acute bronchitis (18 sources) Acute bronchitis; Translations: [Acute bronchitis, unspecified] 12-26-2022 Episodic Anxiety disorders (20 sources) Mixed anxiety and depressive disorder; Translations: [Anxiety disorder, unspecified] Onset: 12-02-2024 07-12-2022 Chronic Asthma (20 sources) Asthma; Translations: [Unspecified asthma, uncomplicated] 07-12-2022 Chronic Comment on above: INHALERS USED Cancer of breast (20 sources) Overlapping malignant neoplasm of female breast; Translations: [Malignant neoplasm of overlapping sites of right female breast] Onset: 03-11-2012 Resolved: 02-10-2017 02-10-2017 Chronic Cancer of breast (20 sources) History of malignant neoplasm of breast; Translations: [Personal history of malignant neoplasm of breast] Onset: 09-17-2013 09-17-2013 Episodic Chronic obstructive pulmonary disease and bronchiectasis (20 sources) Bronchitis; Translations: [Bronchitis, not specified as acute or chronic] 07-12-2022 Episodic Diseases of white blood cells (14 sources) Other drug-induced agranulocytosis; 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] Onset: 06-03-2012 06-03-2012 Chronic Disorders of lipid metabolism (20 sources) Hyperlipidemia; Translations: [Hyperlipidemia, unspecified] Onset: 12-08-2024 07-12-2022 Chronic Esophageal disorders (19 sources) Gastroesophageal reflux disease; Translations: [Gastro-esophageal reflux disease without esophagitis] 02-26-2023 Chronic Headache; including migraine (20 sources) Migraine; Translations: [Migraine, unspecified, not intractable, without status migrainosus] 07-12-2022 Chronic Immunizations and screening for infectious disease (4 sources) Contact with or exposure to other viral diseases; Translations: [Exposure to COVID-19 virus] Onset: 11-18-2024 Episodic Mood disorders (1 source) Mood disorders; Translations: [Depression, unspecified] Onset: 12-02-2024 Nutritional deficiencies (16 sources) Vitamin deficiency; Translations: [Vitamin deficiency, unspecified] 07-12-2022 Episodic Open wounds of extremities (10 sources) Puncture wound of index finger of left hand; Translations: [Puncture wound without foreign body of left index finger without damage to nail, initial encounter] 09-30-2023 Episodic Osteoarthritis (16 sources) Arthritis; Translations: [Unspecified osteoarthritis, unspecified site] 07-12-2022 Chronic Other aftercare (1 source) Encounter for follow-up examination after completed treatment for malignant neoplasm; Translations: [Encounter for follow-up surveillance of breast cancer] Onset: 10-06-2024 Episodic Other bone disease and musculoskeletal deformities (18 sources) Osteopenia; Translations: [Other specified disorders of bone density and structure, unspecified site] 07-12-2022 Episodic Other bone disease and musculoskeletal deformities (5 sources) Other specified disorders of bone density and structure, unspecified site; Translations: [Disorder of bone and cartilage, unspecified] Onset: 12-02-2024 07-12-2022 Episodic Other circulatory disease (19 sources) Elevated blood-pressure reading without diagnosis of hypertension; Translations: [Elevated blood-pressure reading, without diagnosis of hypertension] 01-23-2023 Episodic Other circulatory disease (1 source) Elevated blood-pressure reading, without diagnosis of hypertension; Translations: [Elevated blood pressure reading without diagnosis of hypertension] 01-23-2023 Episodic Other lower respiratory disease (20 sources) Cough; Translations: [Cough] Episodic Other lower respiratory disease (1 source) H/O: asthma; Translations: [Personal history of other diseases of the respiratory system] Episodic Other lower respiratory disease (3 sources) Persistent cough; Translations: [Upper airway cough syndrome] 01-01-2023 Episodic Other nervous system disorders (16 sources) Carpal tunnel syndrome; Translations: [Carpal tunnel syndrome, unspecified upper limb] 07-12-2022 Chronic Other nervous system disorders (16 sources) H/O: hearing problem; Translations: [Personal history of other diseases of the nervous system and sense organs] 07-12-2022 Episodic Other non-epithelial cancer of skin (16 sources) History of malignant neoplasm of skin; Translations: [Personal history of other malignant neoplasm of skin] 07-12-2022 Episodic Other non-traumatic joint disorders (16 sources) Pain in elbow; Translations: [Pain in right elbow] 07-12-2022 Episodic Other non-traumatic joint disorders (1 source) Pain in right elbow; Translations: [Pain in joint, upper arm] 07-12-2022 Episodic Other screening for suspected conditions (not mental disorders or infectious disease) (20 sources) Patient encounter status; Translations: [Encounter for screening for malignant neoplasm of colon] Onset: 09-17-2013 09-17-2013 Episodic Other skin disorders (10 sources) Localized swelling of left foot; Translations: [Localized swelling, mass and lump, left lower limb] 11-28-2023 Episodic Other upper respiratory disease (10 sources) Pain in throat; Translations: [Pain in throat] 11-28-2023 Episodic Other upper respiratory infections (17 sources) Bacterial sinusitis; Translations: [Chronic sinusitis, unspecified] Onset: 06-09-2024 06-09-2024 Chronic Other upper respiratory infections (19 sources) Acute upper respiratory infection; Translations: [Acute upper respiratory infection, unspecified] Episodic Peripheral and visceral atherosclerosis (12 sources) Peripheral vascular disease, unspecified; Translations: [Peripheral arterial disease] 06-02-2023 Chronic Pneumonia (except that caused by tuberculosis or sexually transmitted disease) (16 sources) Pneumonia; Translations: [Pneumonia, unspecified organism] 07-12-2022 Episodic Residual codes; unclassified (20 sources) History of clinical finding in subject; Translations: [Personal history of other specified conditions] 07-12-2022 Episodic Residual codes; unclassified (13 sources) Other specified postprocedural states; Translations: [History of lumpectomy] 07-12-2022 Episodic Comment on above: SENTINEL LYMPH NODE BX, 03/2012 Residual codes; unclassified (10 sources) History of headache 07-12-2022 Episodic Spondylosis; intervertebral disc disorders; other back problems (14 sources) Cervical arthritis; Translations: [Spondylosis without myelopathy or radiculopathy, cervical region] Onset: 08-19-2016 08-19-2016 Chronic Unclassified (6 sources) History of headache; Translations: [History of frequent headaches] 07-12-2022 Unclassified (5 sources) S92.512A - Displaced fracture of proximal phalanx of left lesser toe(s), initial encounter for closed fracture Unclassified (4 sources) Unclassified (1 source) Cough, unspecified; Translations: [Cough, unspecified] Onset: 11-09-2024 Unclassified (1 source) Subacute cough; Translations: [Subacute cough] Onset: 09-09-2024 Past or Other Problems Problem Classification Problem Date Documented Da te Episodic/Chronic Bacterial infection; unspecified site (1 source) Other specified bacterial agents as the cause of diseases classified elsewhere; Translations: [Other specified bacterial agents as the cause of diseases classified elsewhere] Onset: 06-09-2024 Episodic Fracture of lower limb (12 sources) Closed fracture proximal phalanx, toe ; Translations: [Displaced fracture of proximal phalanx of left lesser toe(s), initial encounter for closed fracture] Onset: 09-27-2024 09-27-2024 Episodic Nonmalignant breast conditions (14 sources) Breast lump; Translations: [Unspecified lump in unspecified breast] Onset: 03-05-2012 03-05-2012 Episodic Other connective tissue disease (1 source) Pain in left toe(s); Translations: [Pain in left toe(s)] Onset: 10-01-2024 Episodic Spondylosis; intervertebral disc disorders; other back problems (14 sources) Neck pain; Translations: [Cervicalgia] Onset: 08-19-2016 08-19-2016 Episodic Unclassified (2 sources) Patient encounter status 10-06-2024 Results Test Name Value Interpretation Reference Range Facility Office Visit Reporton 2024 Office Visit Report [facility] [address] [place] [address] OFFICE VISIT Date of Service: 01/18/25 MR#: [id number] Acct: [id number] Patient: WILLIE COBOS Rep #: [id number] : 1955 Provider: MARY NURSE Age/Sex: 69/F Location: [facility] Status: Signed Intake Vital Signs 12/02/24 14:33 Height 5 ft 6 in Weight: 122 lb 6 oz BMI 19.7 BP 132/78 H Blood Pressure Location Lt brachial Position Sitting Respiration 16 Pulse 67 Pulse Source Monitor Temp 97.1 F L Temp Source Temporal Pulse Oximetry (%) 99 Oxygen Delivery Method room air Intake Visit Reasons: FLU SHOT Chief Complaint: fu Allergies Penicillins Allergy (Mild, Verified 12/02/24 14:28) Rash Have you fallen in the past year?: No Nurse's Note: patient given left upper arm injection tolerated well Immunizations Fluad 65yr up(PF)45 mcg(15 mcgx3)/0.5 mL intramuscular syringe Performing Provider: Frantz Cotter MD Performing Location: [facility] Administered by: Nicky Ellington on 01/18/25 09:56 Dose Route Admin Location Dispensed Lot Number Expiration Date Package NDC NDC Link 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 VIS Given Date VIS Provided VIS Publication Date 01/18/25 Single Vaccine 24 Eligibility Eligibility Date Funding Source Not Applicable Administration Comments: VARGHESE injection given patient tolerated well Assessment and Plan Assessment and Plan Orders: Orders Influenza Immunization 01/18/25 Z23 - Encounter for immunization Clinical Quality Measures Falls Risk Screening/Assistive Devices Have you fallen in the past year?: No 01/28/25 1655 Date Joann Ivory NP-Cassy Cosigner Signature: Date (if applicable) CC: Normal [facility] Absolute lymphocyte countOrd ered By: Frantz Cotter on 12-02-2024 Lymphocytes Auto (Unsp spec) [#/Vol] 1.24 10*3/uL 0.83-4.51 [facility] Absolute neutrophil countOrd ered By: Frantz Cotter on 12-02-2024 Neutrophils (Bld) [#/Vol] 1.9 10*3/uL Low 2.0-7.7 [facility] Anion gap in Serum or Plasma Ordered By: Frantz Cotter on 12-02-2024 Anion gap [Moles/Vol] 10 mmol/L 5-15 [facility] Automated lymphocyte count a s percentage of total leukocytesOrdered By: Frantz Cotter on 12-02-2024 Lymphocytes/100 WBC Auto (Unsp spec) 34.0 % - [facility] BUN/creatinine ratioOrdered By: [facility] on 12-02-2024 Urea nitrogen/Creatinine [Mass ratio] 18.4 mg/mg 10- [facility] Basophil percentageOrdered B y: Frantz Cotter on 12-02-2024 Basophils/100 WBC (Bld) 1.6 % High 0-1 [facility] Bilirubin, totalOrdered By: Frantz Cotter on 12-02-2024 Bilirubin [Mass/Vol] 0.33 mg/dL 0.00-1.30 [facility] CBC W/Diff, Automatedon 11-06 Absolute Lymph 1.24 X10 3/uL Normal 0.83-4.51 [facility] Comment on above: Performed By: #### L 100.0100, L500.4100, L506.1001, L500.4050 #### [facility] [address] [place], [address] Absolute Neut 1.9 X10 3/uL Low 2.0-7.7 [facility] Comment on above: Performed By: #### L 100.0100, L500.4100, L506.1001, L500.4050 #### [facility] [address] [place], [address] Basophils/100 WBC (Bld) 1.6 % High 0-1 [facility] Comment on above: Performed By: #### L 100.0100, L500.4100, L506.1001, L500.4050 #### [facility] [address] [place], [address] Eosinophils/100 WBC (Bld) 1.9 % Normal 0-5 [facility] Comment on above: Performed By: #### L 100.0100, L500.4100, L506.1001, L500.4050 #### [facility] [address] [place], [address] Erythrocyte distribution width (RBC) [Ratio] 13.2 % Normal 11.6-14.6 [facility] Comment on above: Performed By: #### L 100.0100, L500.4100, L506.1001, L500.4050 #### [facility] [address] [place], [address] Hematocrit (Bld) [Volume fraction] 37.4 % Normal 37-47 [facility] Comment on above: Performed By: #### L 100.0100, L500.4100, L506.1001, L500.4050 #### [facility] [address] [place], [address] Hemoglobin (Bld) [Mass/Vol] 12.1 g/dL Normal 12.0-15.0 [facility] Comment on above: Performed By: #### L 100.0100, L500.4100, L506.1001, L500.4050 #### [facility] [address] [place], [address] IG% 0.000 Normal 0.0-0.9 [facility] Comment on above: Result Comment: IG% - Immature Granulocytes (promyelocytes, myelocytes and metamyelocytes) > 1% indicates that a LEFT SHIFT is Present. Performed By: #### L 100.0100, L500.4100, L506.1001, L500.4050 #### [facility] [address] [place], [address] Lymphocytes/100 WBC (Bld) 34.0 % Normal 19-41 [facility] Comment on above: Performed By: #### L 100.0100, L500.4100, L506.1001, L500.4050 #### [facility] [address] [place], [address] MCH (RBC) [Entitic mass] 29.4 pg Normal 27.0-32.0 [facility] Comment on above: Performed By: #### L 100.0100, L500.4100, L506.1001, L500.4050 #### [facility] [address] [place], [address] MCHC (RBC) [Mass/Vol] 32.4 g/dL Normal 32-36 [facility] Comment on above: Performed By: #### L 100.0100, L500.4100, L506.1001, L500.4050 #### [facility] [address] [place], [address] MCV (RBC) [Entitic vol] 90.8 fL Normal 81-99 [facility] Comment on above: Performed By: #### L 100.0100, L500.4100, L506.1001, L500.4050 #### [facility] [address] [place], [address] Monocytes/100 WBC (Bld) 10.1 % High 0-10 [facility] Comment on above: Performed By: #### L 100.0100, L500.4100, L506.1001, L500.4050 #### [facility] [address] [place], [address] Neutrophils/100 WBC (Bld) 52.4 % Normal 47-70 [facility] Comment on above: Performed By: #### L 100.0100, L500.4100, L506.1001, L500.4050 #### [facility] [address] [place], [address] Nucleated RBC (Bld) [#/Vol] 0 10*3/uL Normal 0-5 [facility] Comment on above: Performed By: #### L 100.0100, L500.4100, L506.1001, L500.4050 #### [facility] [address] [place], [address] Platelet mean volume (Bld) [Entitic vol] 10.0 fL Normal 6.2-12.0 [facility] Comment on above: Performed By: #### L 100.0100, L500.4100, L506.1001, L500.4050 #### [facility] [address] [place], [address] Platelets (Bld) [#/Vol] 267 10*3/uL Normal 150-450 [facility] Comment on above: Performed By: #### L 100.0100, L500.4100, L506.1001, L500.4050 #### [facility] [address] [place], [address] RBC (Bld) [#/Vol] 4.12 10*6/uL Low 4.2-5.4 [facility] Comment on above: Performed By: #### L 100.0100, L500.4100, L506.1001, L500.4050 #### [facility] [address] [place], [address] RDW SD 43.8 fl Normal 35.1-43.9 [facility] Comment on above: Performed By: #### L 100.0100, L500.4100, L506.1001, L500.4050 #### [facility] [address] [place], [address] WBC (Bld) [#/Vol] 3.7 10*3/uL Low 4.4-11.0 [facility] Comment on above: Performed By: #### L 100.0100, L500.4100, L506.1001, L500.4050 #### [facility] [address] [place], [address] Calculated very low density lipoprotein (VLDL) cholesterol measurementOrdered By: Frantz Cotter on 12-02-2024 Calculated very low density lipoprotein (VLDL) cholesterol measurement 36 mg/dL 5-40 [facility] Carbon dioxide, total [Moles /volume] in Central venous bloodOrdered By: Frantz Cotter on 12-02-2024 CO2 [Moles/Vol] 27.0 mmol/L 21.0-32.0 [facility] Chloride assayOrdered By: Elsy Cotter on 12-02-2024 Chloride [Moles/Vol] 100 mmol/L 98-108 [facility] Comprehensive Metabolic Prof ilon 12-02-2024 Albumin [Mass/Vol] 4.1 g/dL Normal 3.4-4.8 [facility] Comment on above: Performed By: #### L 100.0100, L500.4100, L506.1001, L500.4050 #### [facility] [address], [address] Albumin/Globulin [Mass ratio] 1.7 {ratio} Normal 0.9-2.4 [facility] Comment on above: Performed By: #### L 100.0100, L500.4100, L506.1001, L500.4050 #### [facility] [address] [place], [address] ALK PHOS 54 U/L Normal 35-104 [facility] Comment on above: Performed By: #### L 100.0100, L500.4100, L506.1001, L500.4050 #### [facility] [address] [place], [address] ALT [Catalytic activity/Vol] 10 U/L Normal <=34 [facility] Comment on above: Performed By: #### L 100.0100, L500.4100, L506.1001, L500.4050 #### [facility] [address] [place], [address] AST [Catalytic activity/Vol] 17 U/L Normal <=31 [facility] Comment on above: Performed By: #### L 100.0100, L500.4100, L506.1001, L500.4050 #### [facility] [address] [place], [address] Bilirubin [Mass/Vol] 0.33 mg/dL Normal 0.00-1.30 [facility] Comment on above: Performed By: #### L 100.0100, L500.4100, L506.1001, L500.4050 #### [facility] [address] [place], [address] BUN/CRE 18.4 RATIO Normal 10-20 [facility] Comment on above: Performed By: #### L 100.0100, L500.4100, L506.1001, L500.4050 #### [facility] [address] [place], [address] Calcium [Mass/Vol] 9.2 mg/dL Normal 7.6-11.0 [facility] Comment on above: Performed By: #### L 100.0100, L500.4100, L506.1001, L500.4050 #### [facility] [address] [place], [address] Chloride [Moles/Vol] 100 mmol/L Normal 98-108 [facility] Comment on above: Performed By: #### L 100.0100, L500.4100, L506.1001, L500.4050 #### [facility] [address] [place], [address] CO2 [Moles/Vol] 27.0 mmol/L Normal 21.0-32.0 [facility] Comment on above: Performed By: #### L 100.0100, L500.4100, L506.1001, L500.4050 #### [facility] [address] [place], [address] Creatinine [Mass/Vol] 0.91 mg/dL Normal 0.70-1.20 [facility] Comment on above: Performed By: #### L 100.0100, L500.4100, L506.1001, L500.4050 #### [facility] [address] [place], [address] GAP 10 Normal 5-15 [facility] Comment on above: Performed By: #### L 100.0100, L500.4100, L506.1001, L500.4050 #### [facility] [address] [place], [address] GFR/1.73 sq M.predicted among non-blacks MDRD (S/P/Bld) [Vol rate/Area] 69 mL/min/{1.73_m2} Normal >60 [facility] Comment on above: Result Comment: mL/m in/1.73m2 CKD-EPI Creatinine Equation (2020) Performed By: #### L 100.0100, L500.4100, L506.1001, L500.4050 #### [facility] [address] [place], [address] Globulin (S) [Mass/Vol] 2.5 g/dL Normal 2.2-4.2 [facility] Comment on above: Performed By: #### L 100.0100, L500.4100, L506.1001, L500.4050 #### [facility] [address] [place], [address] Glucose [Mass/Vol] 79 mg/dL Normal 70-99 [facility] Comment on above: Performed By: #### L 100.0100, L500.4100, L506.1001, L500.4050 #### [facility] [address] [place], [address] Potassium [Moles/Vol] 4.1 mmol/L Normal 3.3-5.1 [facility] Comment on above: Performed By: #### L 100.0100, L500.4100, L506.1001, L500.4050 #### [facility] [address] [place], [address] Sodium [Moles/Vol] 137 mmol/L Normal 133-145 [facility] Comment on above: Performed By: #### L 100.0100, L500.4100, L506.1001, L500.4050 #### [facility] [address] [place], [address] T PROT 6.6 g/dL Normal 5.9-8.4 [facility] Comment on above: Performed By: #### L 100.0100, L500.4100, L506.1001, L500.4050 #### [facility] [address] [place], [address] Urea nitrogen [Mass/Vol] 17 mg/dL Normal 4-19 [facility] Comment on above: Performed By: #### L 100.0100, L500.4100, L506.1001, L500.4050 #### [facility] [address] [place], [address] Eosinophil percentageOrdered By: Frantz Cotter on 12-02-2024 Eosinophils/100 WBC (Bld) 1.9 % 0-5 [facility] Erythrocyte distribution wid th ratioOrdered By: Frantz Cotter on 12-02-2024 Erythrocyte distribution width (RBC) [Ratio] 13.2 % 11.6-14.6 [facility] Erythrocyte distribution wid th standard deviationOrdered By: Frantz Cotter on 12-02-2024 Erythrocyte distribution width (RBC) [Ratio] 43.8 fl 35.1-43.9 [facility] Glomerular filtration rate ( GFR) estimation/1.73 sq m using serum, plasma, or whole bOrdered By: Frantz Cotter on 12-02-2024 GFR/1.73 sq M.predicted among non-blacks MDRD (S/P/Bld) [Vol rate/Area] 69 mL/min/{1.73_m2} >60 [facility] Comment on above: mL/min/1.73m2 CKD-EP I Creatinine Equation (2020) Hematocrit Auto (Bld) [Volum e fraction]Ordered By: Frantz Cotter on 12-02-2024 Hematocrit (Bld) [Volume fraction] 37.4 % 37-47 [facility] Hemoglobin measurementOrdere d By: Frantz Cotter on 12-02-2024 Hemoglobin (Bld) [Mass/Vol] 12.1 g/dL 12.0-15.0 [facility] Immature granulocytes/100 WB C Auto (Bld)Ordered By: Frantz Cotter on 12-02-2024 Immature granulocytes/100 WBC (Bld) 0.000 % 0.0-0.9 [facility] Comment on above: IG% - Immature Granu locytes (promyelocytes, myelocytes and metamyelocytes) > 1% indicates that a LEFT SHIFT is Present. Internal Medicine Office Vis charito 12-02-2024 Internal Medicine Office Visit [facility] [address] [place] [address] [place] [address] OFFICE VISIT Date of Service: 12/02/24 MR#: [id number] Acct: [id number] Name: WILLIE COBOS Simeon Rep #: [id number] : 1955 Provider: Dr. 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 Accompanied by: Self Is patient in pain?: No Allergies Penicillins Allergy (Mild, Verified 12/02/24 14:28) Rash Medications ???Medication ???Instructions ???Recorded ???Confirmed ???Type arm brace (MINDY Elbow Brace) #1 ea 07/12/22 12/02/24 Rx famotidine 10 mg tablet (Pepcid AC) 10 mg PO DAILY 07/12/22 5 History inhalational spacing device #1 ea 01/18/23 12/02/24 Rx (BreatheRite MDI Spacer) calcium 600 mg (as 1 tab PO BID 11/28/23 12/02/24 His tory carbonate)-vitamin D3 20 mcg (800 unit) tablet sumatriptan succinate 50 mg tablet See Rx Instructions PO .COMPLEX 08/03/24 12/02/24 Rx #12 tabs albuterol sulfate 90 mcg/actuation 2 puff inhalation Q6H PRN 12/02/24 Rx aerosol inhaler (Ventolin HFA) shortness of breath or wheezing #8.5 grams citalopram 20 mg tablet 20 mg PO DAILY #90 tabs 11/08/24 0 12/02/24 Rx dextromethorphan HBr 15 mg capsule 15 mg PO Q8H PRN cough #20 caps 11/09/24 12/02/24 Rx doxycycline monohydrate 100 mg 100 mg PO BID #20 caps 11/09/24 Rx capsule Have you fallen in the past year?: No Nurse's Note: concerned with getting cough every 3 months or so lasts about a month every time since june [facility] Medical History Displaced fracture of proximal phalanx of left lesser toe(s), initial encounter for closed fracture Bacterial sinusitis Localized swelling of left foot Throat pain Puncture wound of left index finger Wears glasses Post-menopausal Cancer Depression Anxiety Alcohol use History of steroid therapy Easy bruising Injury of head and neck Gastric reflux History of pain when walking History of stress test PAD (peripheral artery disease) GERD (gastroesophageal reflux disease) Blood pressure elevated without history of HTN Asthmatic bronchitis with acute exacerbation Acute sinusitis, unspecified Health care maintenance Anxiety and depression Migraines Right elbow pain Colon cancer screening Hyperlipidemia Vitamin deficiency Pneumonia Osteopenia History of hearing problem History of frequent headaches Hx of emotional problems Bronchitis Carpal tunnel syndrome History of skin cancer HX: breast cancer Hx of breast lump Asthma Arthritis Surgical History Hx of colonoscopy H/O lumpectomy Family History Uncle Myocardial infarction Grandfather Heart disease Father Hx of blood clots Aunt Breast cancer Mother Anesthesia complication Sister Anesthesia complication Daughter Crohn's disease Social History Smoking Status: Never smoker alcohol intake: current alcohol intake frequency: a few times a month substance use type: does not use what type of physical activity do you participate in: walking and yoga HPI HPI Chief Complaint: fu Details: WILLIE COBOS, is a 69 F who presents to the office today for follow-up of her chronic conditions. Also has some concerns. History of asthma, over the last couple of months she has had recurrent upper respiratory infections which typically resolve with yvlb-xhc-uavxiri measures. Has had to use Airsupra with these episodes. Cough typically lingers for about a month. She questions her easy susceptibility to viral infections. Chronic history of migraines which are generally stable. Typically triggered by the weather/change in the weather. Takes Imitrex as needed which she finds helpful. On average, has 2 episodes a month. History of anxiety currently on citalopram. Doing well on current medication. No concerning side effects reported. Other chronic medical conditions are stable. Continues to follow-up closely with her oncologist and recently established with a tar roofer at the [facility]. Attestation: Documentation on this patient encounter was supported using ambient scribe technology/ voice AI technology. The patient consented to re (more content not included)... Normal [facility] LDL calc ser/plasOrdered By: Frantz Cotter on 12-02-2024 Cholesterol in LDL [Mass/Vol] 122 mg/dL [facility] Comment on above: Cioxnvctqm=722-316 m g/dL & Higher Azmz=919 mg/dL or greaterFriedwald Equation for LDL-C Laboratory - Chemistry and C hemistry - challengeOrdered By: Frantz Naikmariano on 12-02-2024 AST [Catalytic activity/Vol] 17 U/L <32 [facility] Lipid Profileon 12-02-2024 CHOL:HDL 3.64 Normal [facility] Comment on above: Performed By: #### L 100.0100, L500.4100, L506.1001, L500.4050 #### [facility] [address] [place], [address] Cholesterol [Mass/Vol] 219 mg/dL High <=200 [facility] Comment on above: Result Comment: Chol esterol level, Desirable <200 mg/dL Borderline high cholesterol 200-239 mg/dL High cholesterol >=240 mg/dL Recommendations of the NCEP Adult Treatment Panel for the following risk-cutoff thresholds for the [place] population. Performed By: #### L 100.0100, L500.4100, L506.1001, L500.4050 #### [facility] [address] [place], [address] Cholesterol in HDL [Mass/Vol] 60 mg/dL Normal [facility] Comment on above: Result Comment: Ruma onal Cholesterol Education Program (NCEP) guidelines: <40 mg/dL: Low HDL-cholesterol (major risk factor for CHD) >= 60 mg/dL: High HDL-cholesterol (negative risk factor for CHD) HDL-cholesterol is affected by a number of factors, e.g. smoking, exercise, hormones, sex and age. Performed By: #### L 100.0100, L500.4100, L506.1001, L500.4050 #### [facility] [address] [place], [address] Cholesterol in LDL [Mass/Vol] 122 mg/dL Normal [facility] Comment on above: Result Comment: Bord jlaxea=494-538 mg/dL Higher Lggg=981 mg/dL or greater Friedwald Equation for LDL-C Performed By: #### L 100.0100, L500.4100, L506.1001, L500.4050 #### [facility] [address], [address] Cholesterol in VLDL [Mass/Vol] 36 mg/dL Normal 5-40 [facility] Comment on above: Performed By: #### L 100.0100, L500.4100, L506.1001, L500.4050 #### [facility] [address], [address] Triglyceride [Mass/Vol] 182 mg/dL Normal [facility] Comment on above: Result Comment: The drugs N-Acetylcysteine and Metamizole may falsely depress this assay. Normal range: <150 mg/dL Borderline High: 150-199 mg/dL High: 200-499 mg/dL Very High: >500 mg/dL Performed By: #### L 100.0100, L500.4100, L506.1001, L500.4050 #### [facility] [address] [place], [address] MCV (mean corpuscular volume ) determinationOrdered By: Frantz Cotter on 12-02-2024 MCV (RBC) [Entitic vol] 90.8 fL 81-99 [facility] Mean corpuscular hemoglobin (MCH) determinationOrdered By: Frantz Cotter on 12-02-2024 MCH (RBC) [Entitic mass] 29.4 pg 27.0-32.0 [facility] Mean corpuscular hemoglobin concentration (MCHC) determinationOrdered By: Frantz Cotter on 12-02-2024 MCHC (RBC) [Mass/Vol] 32.4 g/dL 32-36 [facility] Mean platelet volume determi nationOrdered By: Frantz Cotter on 12-02-2024 Platelet mean volume (Bld) [Entitic vol] 10.0 fL 6.2-12.0 [facility] Monocyte percentageOrdered B y: Frantz Cotter on 12-02-2024 Monocytes/100 WBC (Bld) 10.1 % High 0-10 [facility] Neutrophil percentageOrdered By: Frantz Cotter on 12-02-2024 Neutrophils/100 WBC (Bld) 52.4 % 47-70 [facility] Nucleated red blood cell per centageOrdered By: Frantz Cotter on 12-02-2024 Nucleated RBC/100 WBC (Bld) [Ratio] 0 % 0-5 [facility] Platelet countOrdered By: Elsy Cotter on 12-02-2024 Platelets (Bld) [#/Vol] 267 10*3/uL 150-450 [facility] Potassium measurement (mass/ volume)Ordered By: Frantz Cotter on 12-02-2024 Potassium (Unsp spec) [Mass/Vol] 4.1 mmol/L 3.3-5.1 [facility] RBC Auto (Bld) [#/Vol]Ordere d By: Frantz Cotter on 12-02-2024 RBC (Bld) [#/Vol] 4.12 10*6/uL Low 4.2-5.4 [facility] Screening total cholesterol/ high density lipoprotein (HDL) cholesterol ratioOrdered By: Frantz Cotter on 12-02-2024 Cholesterol.total/Choles terol in HDL [Mass ratio] 3.64 {ratio} [facility] Serum creatinine measurement (mass/volume)Ordered By: Frantz Cotter on 12-02-2024 Creatinine [Mass/Vol] 0.91 mg/dL 0.70-1.20 [facility] Serum globulin measurementOr dered By: Frantz Cotter on 12-02-2024 Globulin (S) [Mass/Vol] 2.5 g/dL 2.2-4.2 [facility] Serum glucose measurement (m ass/volume)Ordered By: Frantz Cotter on 12-02-2024 Glucose [Mass/Vol] 79 mg/dL 70-99 [facility] Serum or plasma alanine alfonso otransferase (ALT) measurementOrdered By: Frantz Cotter on 12-02-2024 ALT [Catalytic activity/Vol] 10 U/L <35 [facility] Serum or plasma albumin ruthie urement (mass/volume)Ordered By: Frantz Manuelalishamariano on 12-02-2024 Albumin [Mass/Vol] 4.1 g/dL 3.4-4.8 [facility] Serum or plasma albumin/glob ulin mass ratioOrdered By: Frantz Cotter 12-02-2024 Albumin/Globulin [Mass ratio] 1.7 {ratio} 0.9-2.4 [facility] Serum or plasma alkaline pam sphatase measurementOrdered By: Elsytamiko Cotter 12-02-2024 ALP [Catalytic activity/Vol] 54 U/L 35-104 [facility] Serum or plasma calcium ruthie urement (mass/volume)Ordered By: Frantz Manuelalishamariano 12-02-2024 Calcium [Mass/Vol] 9.2 mg/dL 7.6-11.0 [facility] Serum or plasma cholesterol in HDL measurement (mass/volume)Ordered By: Frantz Cotter 12-02-2024 Cholesterol in HDL [Mass/Vol] 60 mg/dL >40 [facility] Comment on above: National Cholesterol Education Program (NCEP) guidelines:<40 mg/dL: Low HDL-cholesterol (major risk factor for CHD)>= 60 mg/dL: High HDL-cholesterol (negative risk factor for CHD)HDL-cholesterol is affected by a number of factors, e.g. smoking, exercise, hormones, sex and age. Serum or plasma cholesterol measurement (mass/volume)Ordered By: Frantz Cotter on 12-02-2024 Cholesterol [Mass/Vol] 219 mg/dL High <201 [facility] Comment on above: Cholesterol level, D esirable <200 mg/dLBorderline high cholesterol 200-239 mg/dLHigh cholesterol >=240 mg/dLRecommendations of the NCEP Adult Treatment Panel for the following risk-cutoff thresholds for the [place] population. Serum or plasma urea nitroge n measurement (mass/volume)Ordered By: Frantz Cotter 12-02-2024 Urea nitrogen [Mass/Vol] 17 mg/dL 4-19 [facility] Sodium levelOrdered By: Eftaylor wu Kalebxavier on 12-02-2024 Sodium [Moles/Vol] 137 mmol/L 133-145 [facility] Total proteinOrdered By: Hugo argueta Kalebalishamariano on 12-02-2024 Protein [Mass/Vol] 6.6 g/dL 5.9-8.4 [facility] Triglycerides measurementOrd ered By: Connerjazmin Kalebalishamariano on 12-02-2024 Triglyceride [Mass/Vol] 182 mg/dL <199 [facility] Comment on above: The drugs N-Acetylcy steine and Metamizole may falsely depress this assay. Normal range: <150 mg/dLBorderline High: 150-199 mg/dLHigh: 200-499 mg/dLVery High: >500 mg/dL Vitamin D,25 Hydroxyon 12-02 Vitamin D 25-OH 57.6 ng/mL Normal 30-100 [facility] Comment on above: Result Comment: Laure min D Status Deficiency: <20 ng/mL (50nmol/L) Insufficiency: 20-30 ng/mL (50-75 nmol/L) Sufficiency: 30-100 ng/mL (75-250 nmol/L) Toxicity: >100 ng/mL (>250 nmol/L) Performed By: #### L 100.0100, L500.4100, L506.1001, L500.4050 #### [facility] [place], [address] White blood cell (WBC) count Ordered By: Frantz Cotter on 12-02-2024 WBC (Bld) [#/Vol] 3.7 10*3/uL Low 4.4-11.0 [facility] CNOVon 11-18-2024 CNOV Office Visit (OBGYWM ) WILLIE COBOS ([id number]) 1955 F [place] Date Time Provider Department 11/18/24 7:30 AM ELIZABETH HANDY OBGYWM During your visit today, we recorded the following information about you: Blood pressure Weight Height Last Period 128/84 55.3 kg 1.676 m 12/06/04 Elizabeth Handy APRN.[employer] 11/18/2024 8:32 AM Signed Willie is a 69 year old who presents for an annual gynecologic exam with complaints, vaginal dryness. Postmenopausal: yes age 57 HRT use: Yes, How lon year. HPV vaccine: No; Last pap smear: 04/07/2011 History of abnormal pap: No Last mammogram: 2024 normal History of abnormal mammogram: Yes h/o breast cancer Not sexually active due to dryness and pain OB History No obstetric history on file. [place] History LMP: 12/06/2004, Postmenopausal Age at Menarche: 18 Age at First : Age at Menopause: [place] Puddler History Comments: Sexual Activity: Not Currently; Male Contraception: No contraception data on record PAST MEDICAL HISTORY Diagnosis Date Hx of squamous cell carcinoma Malignant neoplasm of breast (female), unspecified site 04/07/2011 Breast cancer, RIGHT Migraine Mild asthma (HCC) Osteoporosis PAST SURGICAL HISTORY Procedure Laterality Date BX BREAST PERC NEED W/GUID 03/05/12 U/S needle core bx lower mid right breast BX BREAST PERC NEED W/GUID 03/14/12 U/S needle core bx second lesion lower mid right breast BX/EXC LYMPH NODE OPEN DEEP AXILLARY NODE 03-19-12 right MASTECTOMY, PARTIAL 03-19-12 right PAST SURGICAL HISTORY OF 1997 left breast lumpectomy-benign PAST SURGICAL HISTORY OF SCCA removal x3 PAST SURGICAL HISTORY OF 11/2010 ablation FAMILY HISTORY Problem Relation Age of Onset Cancer Maternal Grandmother bone Hypertension Mother other (paraplegia) Mother DVT Father other (hep c) Father other (chrohns) Daughter Breast Cancer Paternal Aunt Breast Cancer Other SOCIAL HISTORY Social History Tobacco Use Smoking status: Never Smokeless tobacco: Never Vaping Use Vaping status: Never Used Substance Use Topics Alcohol use: Yes Comment: occasionally Drug use: No REVIEW OF SYSTEMS Abdomen: No abdominal pain, nausea, vomiting, diarrhea, or constipation. No bloating, early satiety, indigestion, or increased flatulence. Bladder: No dysuria, gross hematuria, urinary frequency, urinary urgency, +stress incontinence Breast: No breast lumps, nipple d/c, overlying skin changes, redness or skin retraction Allergies and current medication updated:Yes SENSITIVE EXAM: The sensitive examination was discussed with the Patient or Patient's Authorized Associate Teacher. As applicable, any other physician, advance practice provider, medical student, or other health professional student that will be observing or involved in the sensitive examination for educational or training purposes was discussed with the Patient or Authorized Associate Teacher. The Patient or Authorized Associate Teacher has agreed to proceed with the sensitive examination. (Sensitive examination includes inspection and/or palpation of the breasts, pelvis, prostate and anorectal regions). EXAM: BP 128/84 Ht 5' 6 (1.68m) Wt 122 lb (55.3kg) LMP 12/06/2004 BMI 19.70 kg/(m2). GENERAL: pleasant, female in no apparent distress HEENT: Normocephalic, atraumatic, mucus membranes moist, and no lesions DERMATOLOGY: Normal, without lesions, non-icteric, and non-hirsute BREAST: soft, non-tender, no dominant mass, normal nipple-areolar complex, no lymphadenopathy, and no nipple discharge CHEST: Normal inspiratory effort ABDOMEN: soft, non-tender, and no masses PELVIC: external genitalia normal, normal Bartholin's glands, urethra, Tualatin's glands, no vulvar lesions, no cervical lesions, good vaginal support, physiologic discharge present, normal appearing perineal body and perianal region BIMANUAL: uterus normal size, shape and consistency, no adnexal masses, and non-tender RECTOVAGINAL: deferred. NEURO: alert and oriented x3,exam grossly non-focal EXTREMITIES: normal ASSESSMENT/PLAN: 1) Health maintenance: Pap/HPV screening no longer needed Mammogram ordered Mammogram up to date Nutrition, exercise and routine health maintenance exams reviewed. Calcium/Vitamin D supplementation information provided. Colon cancer screening: up to date with screening done 2023 BMD: up to date done 2023 @ [facility] 2) Follow up one year or sooner as needed Elizabeth Handy APRN.DINORA Allergies As of Date: 11/18/2024 Noted Allergy Reaction PENICILLINS 03/05/2012 4 - Hives Comments: A CHILD Date Reviewed: 11/18/2024 Reviewed by: Elizabeth Handy APRN.[employer]ERTER - Fully Assessed Reason for Visit: Well Woman [[id number]] Primary Visit Diagnosis:Encounter for gynecological examination (general) (routine) without abnormal findings [Z01.419] Other Visit (more content not included)... Normal [facility] - Microbiology an d Antimicrobial susceptibilityOrdered By: Alfie Balderas on 11-09-2024 SARS-CoV-2 (COVID-19) RNA KRYSTAL+probe Ql (Unsp spec) Not detected [facility] Visit Reporton 0 11-09-2024 Urgent Care Visit Report [facility] [address], [address] [place] [address] OFFICE VISIT Date of Service: 11/09/24 MR#: [id number] Acct: [id number] Name: WILLIE COBOS Rep #: [id number] : 1955 Provider: ALEX Engel Age/Sex: 69/F Location: [facility] Status: Signed Intake Vital Signs 09/20/24 08:03 11/09/24 08:29 Height 5 ft 6 in Weight: 123 lb BMI 19.8 BP 136/90 H 122/86 H Blood Pressure Location Lt brachial Position Sitting Sitting Respiration 18 16 Pulse 67 74 Pulse Source Monitor Temp 97.2 F L 99.1 F Temp Source Temporal Oral Pulse Oximetry (%) 98 99 Oxygen Delivery Method room air room air Intake Visit Reasons: SORE THROAT, SINUS CONGESTION,COUGH Chief Complaint: Cough Accompanied by: Self Allergies Penicillins Allergy (Mild, Verified 11/09/24 08:36) Rash Medications ???Medication ???Instructions ???Recorded ???Confirmed ???Type arm brace (MINDY Elbow Brace) #1 ea 07/12/22 11/09/24 Rx famotidine 10 mg tablet (Pepcid AC) 10 mg PO DAILY 07/12/22 5 History inhalational spacing device #1 ea 01/18/23 11/09/24 Rx (BreatheRite MDI Spacer) calcium 600 mg (as 1 tab PO BID 11/28/23 11/09/24 His tory carbonate)-vitamin D3 20 mcg (800 unit) tablet sumatriptan succinate 50 mg tablet See Rx Instructions PO .COMPLEX 08/03/24 11/09/24 Rx #12 tabs dextromethorphan HBr 15 mg capsule 15 mg PO Q8H PRN cough #20 caps 09/06/24 11/09/24 Rx albuterol sulfate 90 mcg/actuation 2 puff inhalation Q6H PRN 11/09/24 Rx aerosol inhaler (Ventolin HFA) shortness of breath or wheezing #8.5 grams citalopram 20 mg tablet 20 mg PO DAILY #90 tabs 11/08/24 0 11/09/24 Rx dextromethorphan HBr 15 mg capsule 15 mg PO Q8H PRN cough #20 caps 11/09/24 11/09/24 Rx doxycycline monohydrate 100 mg 100 mg PO BID #20 caps 11/09/24 Rx capsule methylprednisolone 4 mg tablets in See Rx Instructions PO PER PKG D IR 11/09/24 11/09/24 Rx a dose pack (Medrol (Stephon)) #21 tabs Have you fallen in the past year?: No Nurse's Note: Patient has Sore throat, sinus congestion and cough. Patient state this happen Friday on the drive home. Patient was at a wedding and people that were their had covid. [facility] Medical History (Updated 09/27/24 @ 11:15 by Alfie JOHNSON, PA) Displaced fracture of proximal phalanx of left lesser toe(s), initial encounter for closed fracture Bacterial sinusitis Localized swelling of left foot Throat pain Puncture wound of left index finger Wears glasses Post-menopausal Cancer Depression Anxiety Alcohol use History of steroid therapy Easy bruising Injury of head and neck Gastric reflux History of pain when walking History of stress test PAD (peripheral artery disease) GERD (gastroesophageal reflux disease) Blood pressure elevated without history of HTN Asthmatic bronchitis with acute exacerbation Acute sinusitis, unspecified Health care maintenance Anxiety and depression Migraines Right elbow pain Colon cancer screening Hyperlipidemia Vitamin deficiency Pneumonia Osteopenia History of hearing problem History of frequent headaches Hx of emotional problems Bronchitis Carpal tunnel syndrome History of skin cancer HX: breast cancer Hx of breast lump Asthma Arthritis Surgical History Hx of colonoscopy H/O lumpectomy Family History Uncle Myocardial infarction Grandfather Heart disease Father Hx of blood clots Aunt Breast cancer Mother Anesthesia complication Sister Anesthesia complication Daughter Crohn's disease Social History Smoking Status: Never smoker alcohol intake: current alcohol intake frequency: a few times a month substance use type: does not use what type of physical activity do you participate in: walking and yoga HPI HPI Chief Complaint: Cough Details: WILLIE COBOS, is a 69 F who presents to the office today [facility] for approximately 3 day history of persistent sore throat, sinus congestion, and moist nonproductive cough; no complaints of fever, chills, ANDERSON, myalgias, fatigue, nausea, and diarrhea. Patient notes no complaints of chest pain or shortness of breath or dyspnea on exertion. Several close contacts recently dx???d w/ similar URI complaints, including people at a wedding she recently attended but several of them testing positive for COVID-19. No sncw-zii-gfttzks taken to assist. No other associated symptoms and no other alleviating/aggravating factors. ROS Const Constitutional: No other (As above) Exam Const General: c (more content not included)... Normal [facility] CNOVSPon 10-06-2024 CNOVS Visit (SP) Office ([place]) WILLIE COBOS ([id number]) 1955 F [place] Date Time Provider Department 10/06/24 8:30 AM ANA GRIFFITHS During your visit today, we recorded the following information about you: Temperature Pulse Blood pressure Weight 98.4 degrees 66/minute 110/78 56.3 kg Height 1.676 m Ana Griffiths APRN.CNP 10/06/2024 9:36 AM Signed Chief Complaint Patient presents with: Established Patient HPI: Willie Cobos is a 69 year old female who presents here today for follow up breast cancer. Per Dr. Ivey's previous note: H/o pt appreciated a mass on the underside of her right breast in the summer 2011. Underwent a biopsy of one of the lesions on 03/09/12. The pathologic review revealed invasive lobular carcinoma. Estrogen receptors were quantified at 70% and progesterone receptors were quantified at 72%. HER-2 was quantified at 2+. FISH testing was requested but the study was canceled because there was tissue loss during the procedure run despite 3 attempts. The patient underwent a biopsy of the second mass on 03/17/12. The pathologic review revealed invasive ductal carcinoma. Estrogen receptors and progesterone receptors were both quantified at greater than 95%. HER-2 was quantified at 2+ at the FISH testing revealed the specimen was nonamplified with a HER-2/nu to CEP 17 ratio 1.1-1. Underwent partial mastectomy with SLN biopsy 03/19. The pathology review revealed 2 foci of invasive carcinoma. The first was an invasive ductal carcinoma measuring 1.5 x 1.0 cm. The second was an invasive lobular carcinoma measuring 1.2 x 1.1 cm. The histologic grade was 2. All margins were negative in the invasive ductal carcinoma was 2.5 mm from the deep margin and invasive lobular carcinoma was 3.0 mm from the inferior margin. Both of these were the closest margins and were re-excised and were negative for malignancy. Lymphovascular invasion was not identified. Focal perineural invasion of both of the tumors was noted. One lymph node was retrieved and a sentinel node procedure and it was negative by histologic as well as immunohistochemistry analysis. Patient had been on an Estrogen patch up to the time of work up. PATHOLOGY: Oncotype DX testing showed that the one tumor was borderline between intermediate low risk and the second was in the intermediate risk category. Completed:TC/Neulasta Completed radiation October 14, 2012. Started arimidex after radiation. Stopped arimidex due to fatigue and joint pain early 2012. Changed to aromasin end of 2012. Changed to femara. Stopped 06/2013. Tamoxifen until stopped tamoxifen early September and has been off since d/t memory issues-forgetting things at work. She noted no difference in her memory-notes migraines/hot flashes worse while off of tamoxifen. Tamoxifen restarted and completed through 03/2018. No new concerns today. Appetite:Good. Wt. up 3# over past year. Energy level:Good. Denies fevers. Recent URI. Resp:denies cough or sob h/o asthma. Cardiac:denies chest pain/palpitations GI:denies abd pain, n/v, moving bowels regularly :denies dysuria/hematuria Extrem:denies pain currently, occ. joint pain Endo:+hot flashes-Stable Not a complete sweat through the night. Neuro:denies symptoms of neuropathy Skin:denies rashes/lesions Heme:denies bleeding The ROS is otherwise negative. Past medical history, appointments, medications, allergies reviewed. No changes. EXAM: BP 110/78 Pulse 66 Temp 36.9 ?C (98.4 ?F) (Temporal) Ht 167.6 cm (5' 6) Wt 56.3 kg (124 lb 1.9 oz) SpO2 98% BMI 20.03 kg/m? APPEARANCE Well appearing, alert, in no acute distress, well-hydrated, well nourished. HEART RRR with normal S1 and S2, no murmurs LUNG clear to auscultation BREAST FEMALE no mass/nodule b/l, R lower/outer surgical changes LYMPH NODES No cervical lymphadenopathy, No supraclavicular lymphadenopathy, and No axillary lymphadenopathy. ABDOMEN bowel sounds normoactive, soft, non-tender EXTREMITIES No edema NEURO Awake, alert and oriented x 3, Normal gait, and No involuntary motions. SKIN Skin color, texture, turgor normal, no suspicious rashes or lesions RADIOLOGY: Mammogram 09/30/24: IMPRESSION: There is no mammographic evidence of malignancy. Routine screening mammogram is recommended. Annual mammogram will be due in 1 year. BI-RADS Category 2: Benign ASSESSMENT/PLAN: 1. Encounter for follow-up surveillance of breast cancer - ICD9: V67.9, V10.3, ICD10: Z08, Z85.3 -pT1c (1.5 cm; grade 2; no AL invasion; focal perineural invasion) N0 (One of [address] negative) MX ER/CA positive; HER2 non-amplified invasive ductal carcinoma of the right breast. -pT1c (1.2 cm; no AL invasion; focal perineural invasion) N0 (One of 1 LN negative) MX ER/CA positive; HER2 2+ (FISH unable to be done on biopsy s (more content not included)... Normal [facility] SCREENING W TOMOon 09-30 [facility] SCREENING W PURVI * * *Final Report* * * DATE OF EXAM: Sep 30 2024 8:39AM [id number] - [facility] SCREENING W PURVI / PROCEDURE REASON: multiple diagnoses * * * * Physician Interpretation * * * * RESULT: [place] [address] [place] [address] #[id number] - [facility] SCREENING W PURVI HISTORY: 69 year-old patient presents for screening. Patient is asymptomatic in both breasts. The patient has the following personal history of breast cancer: breast cancer in the right breast more than 10 years ago. COMPARISON STUDIES: The present examination has been compared to prior imaging studies dated 03/14/2020 (mammogram), 09/13/2020 (mammogram), 09/17/2021 (mammogram), 09/19/2022 (mammogram) and 09/26/2023 (mammogram). MAMMOGRAM TECHNIQUE: The study was acquired using full field digital technology and interpreted from soft copy. Digital Breast Tomosynthesis (DBT) images were obtained and used to assist in the interpretation of this examination. MAMMOGRAM FINDINGS: The breasts are heterogeneously dense, which may obscure small masses. There are post-operative changes in both breasts. No suspicious masses, calcifications or other abnormalities are seen in either breast. IMPRESSION: There is no mammographic evidence of malignancy. Routine screening mammogram is recommended. Annual mammogram will be due in 1 year. BI-RADS Category 2: Benign RISK: Due to the reported patient's history, the patient's estimated lifetime risk of developing breast cancer cannot be assessed at this time. We encourage all patients to talk with their providers about their risk assessment, further recommendations for managing breast health, and appropriate supplemental screening options if the patient has dense breast tissue. Interpreting Radiologist: Luis A Berg M.D. Electronically signed on: 10/01/2024 [employer] Text[employer] Restorer: COMFORT Transcribe Date/Time: Sep 30 2024 7:48A Dictated by: LUIS A BERG MD This examination was interpreted and the report reviewed and electronically signed by: LUIS A BERG MD on Oct 01 2024 12:03PM EST [id number] Normal [facility] Toe(s) Min 2 Viewson 025 Toe(s) Min 2 Views [facility] Imaging Services [address] [place], [place] [address] Toe(s) Min 2 Views MR#: [id number] Acct: [id number] Name: WILLIE COBOS Rep #: [id number] : 1955 F 69 From: Rommel Tello PCP: Dr. Frantz Cotter MD Status: REG CLI Study: Toe(s) Min 2 Views Date of Exam: 09/27/24 Exam# [id number] Ordering Dr: Alfie Balderas PROCEDURE: TOE(S) MIN 2 VIEWS 09/27/2024 REASON FOR EXAM: TOE PAIN TECHNIQUE: TOE(S) MIN 2 VIEWS COMPARISON: Three-view left 3rd toe RAD/Toe(s) Min 2 Views IMPRESSION: A comminuted intra-articular fracture of the distal portion of the left 3rd toe proximal phalanx is seen. No additional fracture site is evident. Reading Location: [place] [address] CC: Dr. 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: Signed Normal [facility] Urgent Care Visit Reporton 0 09-27-2024 Urgent Care Visit Report [facility] [address], [address] [place] [address] OFFICE VISIT Date of Service: 09/27/24 MR#: [id number] Acct: [id number] Name: WILLIE COBOS Rep #: [id number] : 1955 Provider: ALEX Engel Age/Sex: 69/F Location: [facility] Status: Signed Intake Vital Signs 09/20/24 08:03 09/27/24 11:00 Height 5 ft 6 in Weight: 123 lb BMI 19.8 BP 136/90 H 116/80 Blood Pressure Location Lt brachial Position Sitting Sitting Respiration 18 16 Pulse 67 60 Pulse Source Monitor Temp 97.2 F L 98.2 F Temp Source Temporal Pulse Oximetry (%) 98 99 Oxygen Delivery Method room air room air Intake Visit Reasons: L FOOT MIDDLE TOE INJURY Accompanied by: Is patient in pain?: Yes Pain scale (1-10): 8 Allergies Penicillins Allergy (Mild, Verified 09/27/24 11:06) Rash Medications ???Medication ???Instructions ???Recorded ???Confirmed ???Type arm brace (MINDY Elbow Brace) #1 ea 07/12/22 09/27/24 Rx famotidine 10 mg tablet (Pepcid AC) 10 mg PO DAILY 07/12/22 5 History inhalational spacing device #1 ea 01/18/23 09/27/24 Rx (BreatheRite MDI Spacer) calcium 600 mg (as 1 tab PO BID 11/28/23 09/27/24 His tory carbonate)-vitamin D3 20 mcg (800 unit) tablet citalopram 20 mg tablet 20 mg PO DAILY #90 tabs 07/23/24 0 09/27/24 Rx sumatriptan succinate 50 mg tablet See Rx Instructions PO .COMPLEX 08/03/24 09/27/24 Rx #12 tabs dextromethorphan HBr 15 mg capsule 15 mg PO Q8H PRN cough #20 caps 09/06/24 09/27/24 Rx albuterol sulfate 90 mcg/actuation 2 puff inhalation Q6H PRN 09/27/24 Rx aerosol inhaler (Ventolin HFA) shortness of breath or wheezing #8.5 grams Have you fallen in the past year?: No Nurse's Note: Patient hurt her Lt middle toe this morning. Patient states their was a bag on the floor with a strap and her toe caught the strap and pulled her middle toe away. Patient put ice on it right away. Patient states she can't put weight on it. [facility] Medical History (Updated 09/27/24 @ 11:15 by Alfie JOHNSON, PA) Displaced fracture of proximal phalanx of left lesser toe(s), initial encounter for closed fracture Bacterial sinusitis Localized swelling of left foot Throat pain Puncture wound of left index finger Wears glasses Post-menopausal Cancer Depression Anxiety Alcohol use History of steroid therapy Easy bruising Injury of head and neck Gastric reflux History of pain when walking History of stress test PAD (peripheral artery disease) GERD (gastroesophageal reflux disease) Blood pressure elevated without history of HTN Asthmatic bronchitis with acute exacerbation Acute sinusitis, unspecified Health care maintenance Anxiety and depression Migraines Right elbow pain Colon cancer screening Hyperlipidemia Vitamin deficiency Pneumonia Osteopenia History of hearing problem History of frequent headaches Hx of emotional problems Bronchitis Carpal tunnel syndrome History of skin cancer HX: breast cancer Hx of breast lump Asthma Arthritis Surgical History Hx of colonoscopy H/O lumpectomy Family History Uncle Myocardial infarction Grandfather Heart disease Father Hx of blood clots Aunt Breast cancer Mother Anesthesia complication Sister Anesthesia complication Daughter Crohn's disease Social History Smoking Status: Never smoker alcohol intake: current alcohol intake frequency: a few times a month substance use type: does not use what type of physical activity do you participate in: walking and yoga HPI HPI Details: WILLIE COBOS, is a 69 F who presents to the office today for [facility] status post left third toe injury occurring at home earlier this morning. Patient notes getting the same toe caught in a strap that was on the floor and hyper flexed her toe in the process no unremarkable swelling of the proximal aspect of the same toe ever since. Pain is aggravated to touch and with weightbearing, alleviated with sit/rest. No [id number] products taken to assist. No other associated symptoms and no other alleviating or aggravating factors. ROS Const Constitutional: No other (As above) Exam Const General: cooperative, healthy appearing and no acute distress Orientation: alert and awake Resp Effort Inspection: normal respiratory effort and able to speak in complete sentences Cardio Rate: regular rate Pulses: radial pulses present Skin General: no rashes or lesions noted Neuro General: patient alert and patient awake Cognition: normal cogn (more content not included)... Normal [facility] Internal Medicine Office Vis charito 09-20-2024 Internal Medicine Office Visit [facility] [address] [place] [address] [place] [address] OFFICE VISIT Date of Service: 09/20/24 MR#: [id number] Acct: [id number] Name: WILLIE COBOS Rep #: [id number] : 1955 Provider: Dr. 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: No Is patient in pain?: No Allergies Penicillins Allergy (Mild, Verified 09/20/24 07:51) Rash Medications ???Medication ???Instructions ???Recorded ???Confirmed ???Type arm brace (MINDY Elbow Brace) #1 ea 07/12/22 09/20/24 Rx famotidine 10 mg tablet (Pepcid AC) 10 mg PO DAILY 07/12/22 5 History inhalational spacing device #1 ea 01/18/23 09/20/24 Rx (BreatheRite MDI Spacer) calcium 600 mg (as 1 tab PO BID 11/28/23 09/20/24 His tory carbonate)-vitamin D3 20 mcg (800 unit) tablet citalopram 20 mg tablet 20 mg PO DAILY #90 tabs 07/23/24 0 09/20/24 Rx sumatriptan succinate 50 mg tablet See Rx Instructions PO .COMPLEX 08/03/24 09/20/24 Rx #12 tabs dextromethorphan HBr 15 mg capsule 15 mg PO Q8H PRN cough #20 caps 09/06/24 09/20/24 Rx albuterol sulfate 90 mcg/actuation 2 puff inhalation Q6H PRN 09/20/24 Rx aerosol inhaler (Ventolin HFA) shortness of breath or wheezing #8.5 grams Have you fallen in the past year?: No PFSH Medical History Bacterial sinusitis Localized swelling of left foot Throat pain Puncture wound of left index finger Wears glasses Post-menopausal Cancer Depression Anxiety Alcohol use History of steroid therapy Easy bruising Injury of head and neck Gastric reflux History of pain when walking History of stress test PAD (peripheral artery disease) GERD (gastroesophageal reflux disease) Blood pressure elevated without history of HTN Asthmatic bronchitis with acute exacerbation Acute sinusitis, unspecified Health care maintenance Anxiety and depression Migraines Right elbow pain Colon cancer screening Hyperlipidemia Vitamin deficiency Pneumonia Osteopenia History of hearing problem History of frequent headaches Hx of emotional problems Bronchitis Carpal tunnel syndrome History of skin cancer HX: breast cancer Hx of breast lump Asthma Arthritis Surgical History Hx of colonoscopy H/O lumpectomy Family History Uncle Myocardial infarction Grandfather Heart disease Father Hx of blood clots Aunt Breast cancer Mother Anesthesia complication Sister Anesthesia complication Daughter Crohn's disease Social History Smoking Status: Never smoker alcohol intake: current alcohol intake frequency: a few times a month substance use type: does not use what type of physical activity do you participate in: walking and yoga HPI HPI Chief Complaint: Cough Details: WILLIE COBOS, is a 69 F who presents to the office today for an acute visit. Reports a 3-week history of cough. Was seen at urgent care and given oral steroids and doxycycline for URI/bacterial sinusitis. Some improvement however concerned that the cough is still lingering. With significant exertion, feels a little short of breath. History of asthma and has not been using any maintenance inhaler. Using airsupra as needed. No chills, fever or otherwise feeling of unwell. Other chronic conditions are stable. ROS Const Constitutional: No body ache, chills, excessive sweating, fatigue, fever(s), frequent falls, headache(s), snoring, weakness, sleep problems or change in appetite Eyes Eyes: No blurry vision, change in vision, floaters, visual disturbances, eye pain or Light sensitivity ENT ENT: No abnormal hearing, ear or mastoid pain, tinnitus, balance problems, nosebleed/epistaxis, nasal congestion, headache(s), neck pain or sore throat Resp Respiratory: Positive for cough, chest congestion, shortness of breath and other; No excessive phlegm production, pain on inspiration, snoring or wheezing Cardio Cardiology: No chest pain at rest, chest pain with exertion, excessive sweating, shortness of breath, dyspnea on exertion, lightheadedness, orthopnea or palpitations Gastro GI: No abdominal pain, change in bowel habits, constipation, 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 Normal [facility] Chest PA and Lateralon 09-06 Chest PA and Lateral [facility] Imaging Services [address] [place], [place] [id number] Chest PA and Lateral MR#: [id number] Acct: [id number] Name: WILLIE COBOS Rep #: [id number] : 1955 F 69 From: Marco Tello PCP: Dr. Frantz Cotter MD Status: REG CLI Study: Chest PA and Lateral Date of Exam: 09/06/24 Exam# [id number] Ordering Dr: Alfie Balderas PA PROCEDURE: CHEST PA AND LATERAL 09/06/2024 REASON FOR EXAM: COUGH TECHNIQUE: Frontal and lateral views of the chest. COMPARISON: 01/18/2023 FINDINGS: No focal consolidations. No pleural effusion or pneumothorax. Cardiac silhouette is within normal limits. No acute fractures. RAD/Chest PA and Lateral IMPRESSION: No focal consolidation. Reading Location: [facility] CC: Dr. 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: Signed Normal [facility] Laboratory - Microbiology an d Antimicrobial susceptibilityOrdered By: Alfie Balderas on 09-06-2024 SARS-CoV-2 (COVID-19) RNA KRYSTAL+probe Ql (Unsp spec) Not detected [facility] No Panel InformationOrdered By: Alfie Balderas on 09-06-2024 Influenza Types A,B Rapid (Clinic) Negative [facility] Urgent Care Visit Reporton 0 09-06-2024 Urgent Care Visit Report [facility] [address], [address] [place] [address] OFFICE VISIT Date of Service: 09/06/24 MR#: [id number] Acct: [id number] Name: WILLIE COBOS Rep #: [id number] : 1955 Provider: ALEX Engel Age/Sex: 69/F Location: [facility] Status: Signed Intake Vital Signs 07/02/24 09:00 09/06/24 16:25 Height 5 ft 6 in BP 128/80 H 122/80 H Blood Pressure Location Lt brachial Position Sitting Sitting Respiration 16 Pulse 76 Temp 98.9 F Temp Source Oral Pulse Oximetry (%) 98 Oxygen Delivery Method room air Intake Visit Reasons: COUGH X 3 DAYS Accompanied by: Self Allergies Penicillins Allergy (Mild, Verified 09/06/24 17:20) Rash Medications ???Medication ???Instructions ???Recorded ???Confirmed ???Type arm brace (MINDY Elbow Brace) #1 ea 07/12/22 09/06/24 Rx famotidine 10 mg tablet (Pepcid AC) 10 mg PO DAILY 07/12/22 5 History inhalational spacing device #1 ea 01/18/23 09/06/24 Rx (BreatheRite MDI Spacer) calcium 600 mg (as 1 tab PO BID 11/28/23 09/06/24 His tory carbonate)-vitamin D3 20 mcg (800 unit) tablet albuterol 90 mcg-budesonide 80 2 inh inhalation ONCE PRN 06/14/24 09/06/24 Rx mcg/actuation HFA aerosol inhaler shortness of breath #10.7 grams (Airsupra) citalopram 20 mg tablet 20 mg PO DAILY #90 tabs 07/23/24 0 09/06/24 Rx sumatriptan succinate 50 mg tablet See Rx Instructions PO .COMPLEX 08/03/24 09/06/24 Rx #12 tabs dextromethorphan HBr 15 mg capsule 15 mg PO Q8H PRN cough #20 caps 09/06/24 09/06/24 Rx doxycycline monohydrate 100 mg 100 mg PO BID #20 caps 09/06/24 Rx capsule methylprednisolone 4 mg tablets in See Rx Instructions PO PER PKG D IR 09/06/24 09/06/24 Rx a dose pack (Medrol (Stephon)) #21 tabs Have you fallen in the past year?: No Nurse's Note: Patient has a dry barky cough that has been going on for 3 days. Patient has been having to use her inhaler more. Patient states she was prescribed Dextromethorphan 15mg and they helped her a lot. [facility] Medical History Bacterial sinusitis Localized swelling of left foot Throat pain Puncture wound of left index finger Wears glasses Post-menopausal Cancer Depression Anxiety Alcohol use History of steroid therapy Easy bruising Injury of head and neck Gastric reflux History of pain when walking History of stress test PAD (peripheral artery disease) GERD (gastroesophageal reflux disease) Blood pressure elevated without history of HTN Asthmatic bronchitis with acute exacerbation Acute sinusitis, unspecified Health care maintenance Anxiety and depression Migraines Right elbow pain Colon cancer screening Hyperlipidemia Vitamin deficiency Pneumonia Osteopenia History of hearing problem History of frequent headaches Hx of emotional problems Bronchitis Carpal tunnel syndrome History of skin cancer HX: breast cancer Hx of breast lump Asthma Arthritis Surgical History Hx of colonoscopy H/O lumpectomy Family History Uncle Myocardial infarction Grandfather Heart disease Father Hx of blood clots Aunt Breast cancer Mother Anesthesia complication Sister Anesthesia complication Daughter Crohn's disease Social History Smoking Status: Never smoker alcohol intake: current alcohol intake frequency: a few times a month substance use type: does not use what type of physical activity do you participate in: walking and yoga HPI HPI Details: WILLIE COBOS, is a 69 F who presents to the office today for initial evaluation in the [facility] for approximately 3 day history of persistent fever, chills, cough, ANDERSON, myalgias, fatigue, congestion/ runny nose, nausea, and diarrhea. Patient notes no complaints of chest pain or shortness of breath or dyspnea on exertion. Several close contacts recently dx???d w/ similar URI complaints, including grandson who was recently diagnosed with influenza pneumonia. No psgv-[id number]-[id number] medications taken to assist: Old prescription of dextromethorphan has been used to suppress her cough. No other associated symptoms and no other alleviating/aggravating factors. ROS Const Constitutional: No other (As above) Exam Const General: cooperative, healthy appearing and no acute distress Orientation: alert, awake and oriented x3 HENMT Head: normal to inspection Ears: hearing grossly normal bilaterally, external ears normal, TM's normal bilaterally and EAC's normal Nose: external nose normal, nares normal, septum normal and clear nasal discharge Face and sinus: normal facial exam, (more content not included)... Normal [facility] Office Visit Reporton 2024 Office Visit Report [facility] [address] [place] [address] OFFICE VISIT Date of Service: 07/02/24 MR#: [id number] Acct: [id number] Patient: WILLIE COBOS Rep #: [id number] : 1955 Provider: MARY NURSE Age/Sex: 69/F Location: [facility] Status: Signed Intake Vital Signs 06/25/24 08:30 07/02/24 09:00 Height 5 ft 6 in 5 ft 6 in Weight: 124 lb BMI 20.0 BP 148/98 H 128/80 H Blood Pressure Location Lt brachial Lt brachial Position Sitting Sitting Respiration 16 16 Pulse 65 Pulse Source Monitor Temp 97.2 F L Temp Source Temporal Pulse Oximetry (%) 99 Oxygen Delivery Method room air Intake Visit Reasons: bp monitor check Chief Complaint: bp check 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: No Is patient in pain?: No Allergies Penicillins Allergy (Mild, Verified 07/02/24 08:59) Rash Medications ???Medication ???Instructions ???Recorded ???Confirmed ???Type arm brace (MINDY Elbow Brace) #1 ea 07/12/22 07/02/24 Rx famotidine 10 mg tablet (Pepcid AC) 10 mg PO DAILY 07/12/22 5 History inhalational spacing device #1 ea 01/18/23 07/02/24 Rx (BreatheRite MDI Spacer) calcium 600 mg (as 1 tab PO BID 11/28/23 07/02/24 His tory carbonate)-vitamin D3 20 mcg (800 unit) tablet citalopram 20 mg tablet 20 mg PO DAILY #90 tabs 01/28/24 0 07/02/24 Rx sumatriptan succinate 50 mg tablet See Rx Instructions PO .COMPLEX 02/09/24 07/02/24 Rx #12 tabs albuterol 90 mcg-budesonide 80 2 inh inhalation ONCE PRN 06/14/24 07/02/24 Rx mcg/actuation HFA aerosol inhaler shortness of breath #10.7 grams (Airsupra) Have you fallen in the past year?: No Clinical Quality Measures Falls Risk Screening/Assistive Devices Have you fallen in the past year?: No 07/15/242319 Date [facility]: Date (if applicable) CC: Dr. Frantz Cotter MD [facility] Internal Medicine Office Vis ito 06-25-2024 Internal Medicine Office Visit [facility] [address] [place] [address] OFFICE VISIT Date of Service: 06/25/24 MR#: [id number] Acct: [id number] Name: WILLIE COBOS Rep #: [id number] : 1955 Provider: ALEX Grimes Age/Sex: 69/F Location: [facility] Status: Signed Intake Vital Signs 06/04/24 10:46 06/25/24 08:30 06/25/24 09:06 Height 5 ft 6 in 5 ft 6 in Weight: 126 lb 124 lb BMI 20.3 20.0 BP 140/86 H 148/98 H 138/94 H Blood Pressure Location Lt brachial Lt brachial Lt brachial Position Sitting Sitting Sitting Respiration 18 16 Pulse 80 65 Pulse Source Monitor Monitor Temp 97.8 F 97.2 F L Temp Source Temporal Temporal Pulse Oximetry (%) 100 99 Oxygen Delivery Method room air room air Intake Visit Reasons: acute - persistent cough Chief Complaint: persistent cough 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: No Accompanied by: Self Is patient in pain?: No Allergies Penicillins Allergy (Mild, Verified 06/25/24 08:29) Rash Medications ???Medication ???Instructions ???Recorded ???Confirmed ???Type arm brace (MINDY Elbow Brace) #1 ea 07/12/22 06/04/24 Rx famotidine 10 mg tablet (Pepcid AC) 10 mg PO DAILY 07/12/22 5 History inhalational spacing device #1 ea 01/18/23 06/04/24 Rx (BreatheRite MDI Spacer) calcium 600 mg (as 1 tab PO BID 11/28/23 06/25/24 His tory carbonate)-vitamin D3 20 mcg (800 unit) tablet citalopram 20 mg tablet 20 mg PO DAILY #90 tabs 01/28/24 0 06/25/24 Rx sumatriptan succinate 50 mg tablet See Rx Instructions PO .COMPLEX 02/09/24 06/25/24 Rx #12 tabs albuterol 90 mcg-budesonide 80 2 inh inhalation ONCE PRN 06/14/24 06/25/24 Rx mcg/actuation HFA aerosol inhaler shortness of breath #10.7 grams (Airsupra) Have you fallen in the past year?: No PFSH Medical History Bacterial sinusitis Localized swelling of left foot Throat pain Puncture wound of left index finger Wears glasses Post-menopausal Cancer Depression Anxiety Alcohol use History of steroid therapy Easy bruising Injury of head and neck Gastric reflux History of pain when walking History of stress test PAD (peripheral artery disease) GERD (gastroesophageal reflux disease) Blood pressure elevated without history of HTN Asthmatic bronchitis with acute exacerbation Acute sinusitis, unspecified Health care maintenance Anxiety and depression Migraines Right elbow pain Colon cancer screening Hyperlipidemia Vitamin deficiency Pneumonia Osteopenia History of hearing problem History of frequent headaches Hx of emotional problems Bronchitis Carpal tunnel syndrome History of skin cancer HX: breast cancer Hx of breast lump Asthma Arthritis Surgical History Hx of colonoscopy H/O lumpectomy Family History Uncle Myocardial infarction Grandfather Heart disease Father Hx of blood clots Aunt Breast cancer Mother Anesthesia complication Sister Anesthesia complication Daughter Crohn's disease Social History Smoking Status: Never smoker alcohol intake: current alcohol intake frequency: a few times a month substance use type: does not use what type of physical activity do you participate in: walking and yoga HPI HPI Chief Complaint: persistent cough Details: WILLIE COBOS, is a 69 F who presents to the office today for recheck of some URI symptoms. She states that she has been sick for about a month now. She states she started with some sore throat and nasal symptoms and then it progressed to her sinuses and eventually the chest with the cough. She was given antibiotics and she completed the 10 day course of that. She states that her sinuses have cleared and she is no longer having any discolored green discharge and pressures. She states that the cough however has continued. She states that she is not short of breath at the same time if she tries to be too active then it triggers the cough and then she gets a little winded. She does not have symptoms at rest. She has been checking her BPs at home per her PCP and states that numbers have been actually doing well. ROS Const Constitutional: No body ache, chills, excessive sweating, fatigue, fever(s), frequent falls, headache(s), snoring, weight change, sleep problems, abnormal sleep pattern or change in appetite Eyes Eyes: No blurry vision, change in vision, bulging eyes, floaters, visual disturbances, eye pain or Light sensitivity ENT ENT: No abnormal hearing, ear or mastoid pain, tinnitus, balance problems, nosebleed/epistaxis, nasal congestion, headache(s), neck pain or sore throat Resp Respiratory: Positive (more content not included)... Normal [facility] No Panel InformationOrdered By: Al Flores on 06-09-2024 Influenza Types A,B Rapid (Clinic) Negative [facility] POC SARS CoV-2 Antigen Negative [facility] Visit Reporton 0 06-09-2024 Urgent Care Visit Report [facility] [address], [address] [place] [address] OFFICE VISIT Date of Service: 06/09/24 MR#: [id number] Acct: [id number] Name: WILLIE COBOS Rep #: [id number] : 1955 Provider: JOSE Flores Age/Sex: 69/F Location: [facility] Status: Signed Intake Vital Signs 06/04/24 10:46 06/09/24 09:23 Height 5 ft 6 in Weight: 126 lb BMI 20.3 BP 140/86 H 134/76 H Blood Pressure Location Lt brachial Lt brachial Position Sitting Sitting Respiration 18 15 Pulse 80 70 Pulse Source Monitor NIBP Temp 97.8 F 98.5 F Temp Source Temporal Oral Pulse Oximetry (%) 100 97 Oxygen Delivery Method room air room air Intake Visit Reasons: COUGH, SINUS CONGESTION Chief Complaint: cough, congest, ST, ANDERSON, BA, chills 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: No Is patient in pain?: No Allergies Penicillins Allergy (Mild, Verified 06/09/24 09:23) Rash Is last menstrual period known: No Post menopausal: Yes Patient : No Have you fallen in the past year?: No Nurse's Note: cough, congest, ST, ANDERSON, BA, chills x 48 hours. negative home covid on day #1. [facility] Medical History (Updated 06/09/24 @ 09:37 by JOSE Clark) Bacterial sinusitis Localized swelling of left foot Throat pain Puncture wound of left index finger Wears glasses Post-menopausal Cancer Depression Anxiety Alcohol use History of steroid therapy Easy bruising Injury of head and neck Gastric reflux History of pain when walking History of stress test PAD (peripheral artery disease) GERD (gastroesophageal reflux disease) Blood pressure elevated without history of HTN Asthmatic bronchitis with acute exacerbation Acute sinusitis, unspecified Health care maintenance Anxiety and depression Migraines Right elbow pain Colon cancer screening Hyperlipidemia Vitamin deficiency Pneumonia Osteopenia History of hearing problem History of frequent headaches Hx of emotional problems Bronchitis Carpal tunnel syndrome History of skin cancer HX: breast cancer Hx of breast lump Asthma Arthritis Surgical History Hx of colonoscopy H/O lumpectomy Family History Uncle Myocardial infarction Grandfather Heart disease Father Hx of blood clots Aunt Breast cancer Mother Anesthesia complication Sister Anesthesia complication Daughter Crohn's disease Social History Smoking Status: Never smoker alcohol intake: current alcohol intake frequency: a few times a month substance use type: does not use what type of physical activity do you participate in: walking and yoga HPI HPI Chief Complaint: cough, congest, ST, ANDERSON, BA, chills Details: WILLIE COBOS, is a 69 F who presents to the office today for HPI: About a week ago patient had a sore throat which did seem to improve but since then she has developed sinus pain, pressure drainage, chest congestion and cough. Denies any known fevers but does note chills and bodyaches. ROS: As noted in HPI Physical Exam: VITALS: Reviewed. GEN: Healthy appearing, well-developed, NAD. PSYCH: AOx3. Normal memory, mood, and affect. HEENT -Eyes: -No discharge or redness; -Ears: Normal tympanic membranes bilaterally -Mouth and throat: Moist mucous membranes. No pharyngeal swelling or exudate NECK: CV: Regular rate and rhythm LUNGS: Normal respiratory effort. Lungs clear bilaterally. SKIN: Warm, well perfused. No skin rashes or abnormal lesions noted. MSK: Normal gait. NEURO: Ambulating with no limitations. Normal muscle strength and tone. No focal deficits. Results POC SARS AG POC SARS AG Negative Last Edit by Tasneem Mon on 06/09/24 09:31 POC FLU A B Office Flu A B Negative FLU A B Last Edit by Tasneem Mon on 06/09/24 09:31 Coding Level of Care Code Off vis,est,level 3 Diagnoses Bacterial sinusitis J32.9; B96.89 Assessment and Plan Assessment and Plan (1) Bacterial sinusitis: Status: Acute Plan: Patient did test negative for flu and COVID. Symptoms do seem more consistent with a bacterial sinus infection and she was started on doxycycline. She was also given cough medication for symptomatic relief. She will follow-up with PCP if symptoms not improving. Orders: Orders POC FLU A B Today R05.9 - Cough, unspecified POC Rapid SARS Antigen Today Medications: New doxycycline monohydrate 100 mg PO BID 14 caps 0RF dextromethorphan HBr (Tussin Cough (DM only)) 15 mg PO Q8H PRN 10 caps 0RF cough Clinical Quality Measures Falls Risk Screening/Assistive Devices Have you fallen in the past year?: No 06/09/24 (more content not included)... Normal [facility] Absolute lymphocyte countOrd ered By: Frantz Cotter on 06-04-2024 Lymphocytes Auto (Unsp spec) [#/Vol] 0.91 10*3/uL 0.83-4.51 [facility] Absolute neutrophil countOrd ered By: Frantz Cotter on 06-04-2024 Neutrophils (Bld) [#/Vol] 3.6 10*3/uL 2.0-7.7 [facility] Automated lymphocyte count a s percentage of total leukocytesOrdered By: Frantz Cotter on 06-04-2024 Lymphocytes/100 WBC Auto (Unsp spec) 18.5 % Low 19-41 [facility] BUN/creatinine ratioOrdered By: taylorwest monroemirza Cotter on 06-04-2024 Urea nitrogen/Creatinine [Mass ratio] 18.8 mg/mg 10-20 [facility] Basophil percentageOrdered B y: Frantz Cotter on 06-04-2024 Basophils/100 WBC (Bld) 1.0 % 0-1 [facility] Bilirubin, totalOrdered By: Frantz Cotter on 06-04-2024 Bilirubin [Mass/Vol] 0.42 mg/dL 0.00-1.30 [facility] CBC W/Diff, Automatedon 05-09 Absolute Lymph 0.91 X10 3/uL Normal 0.83-4.51 [facility] Comment on above: Performed By: #### L 500.4050, L100.0100, L500.4100 #### [facility] [address] [place], [place], [id number] Absolute Neut 3.6 X10 3/uL Normal 2.0-7.7 [facility] Comment on above: Performed By: #### L 500.4050, L100.0100, L500.4100 #### [facility] [address] [place], [address] Basophils/100 WBC (Bld) 1.0 % Normal 0-1 [facility] Comment on above: Performed By: #### L 500.4050, L100.0100, L500.4100 #### [facility] [address] [place], [address] Eosinophils/100 WBC (Bld) 1.6 % Normal 0-5 [facility] Comment on above: Performed By: #### L 500.4050, L100.0100, L500.4100 #### [facility] [address] [place], [address] Erythrocyte distribution width (RBC) [Ratio] 12.8 % Normal 11.6-14.6 [facility] Comment on above: Performed By: #### L 500.4050, L100.0100, L500.4100 #### [facility] [address] [place], [address] Hematocrit (Bld) [Volume fraction] 38.3 % Normal 37-47 [facility] Comment on above: Performed By: #### L 500.4050, L100.0100, L500.4100 #### [facility] [address] [place], [address] Hemoglobin (Bld) [Mass/Vol] 12.3 g/dL Normal 12.0-15.0 [facility] Comment on above: Performed By: #### L 500.4050, L100.0100, L500.4100 #### [facility] [address] [place], [address] IG% 0.200 Normal 0.0-0.9 [facility] Comment on above: Result Comment: IG% - Immature Granulocytes (promyelocytes, myelocytes and metamyelocytes) > 1% indicates that a LEFT SHIFT is Present. Performed By: #### L 500.4050, L100.0100, L500.4100 #### [facility] [address] [place], [address] Lymphocytes/100 WBC (Bld) 18.5 % Low 19-41 [facility] Comment on above: Performed By: #### L 500.4050, L100.0100, L500.4100 #### [facility] [address] [place], [address] MCH (RBC) [Entitic mass] 29.9 pg Normal 27.0-32.0 [facility] Comment on above: Performed By: #### L 500.4050, L100.0100, L500.4100 #### [facility] [address] [place], [address] MCHC (RBC) [Mass/Vol] 32.1 g/dL Normal 32-36 [facility] Comment on above: Performed By: #### L 500.4050, L100.0100, L500.4100 #### [facility] [address] [place], [address] MCV (RBC) [Entitic vol] 93.0 fL Normal 81-99 [facility] Comment on above: Performed By: #### L 500.4050, L100.0100, L500.4100 #### [facility] [address] [place], [address] Monocytes/100 WBC (Bld) 6.7 % Normal 0-10 [facility] Comment on above: Performed By: #### L 500.4050, L100.0100, L500.4100 #### [facility] [address] [place], [address] Neutrophils/100 WBC (Bld) 72.0 % High 47-70 [facility] Comment on above: Performed By: #### L 500.4050, L100.0100, L500.4100 #### [facility] [address] [place], [address] Nucleated RBC (Bld) [#/Vol] 0 10*3/uL Normal 0-5 [facility] Comment on above: Performed By: #### L 500.4050, L100.0100, L500.4100 #### [facility] [address] [place], [address] Platelet mean volume (Bld) [Entitic vol] 10.1 fL Normal 6.2-12.0 [facility] Comment on above: Performed By: #### L 500.4050, L100.0100, L500.4100 #### [facility] [address] [place], [address] Platelets (Bld) [#/Vol] 267 10*3/uL Normal 150-450 [facility] Comment on above: Performed By: #### L 500.4050, L100.0100, L500.4100 #### [facility] [address] [place], [address] RBC (Bld) [#/Vol] 4.12 10*6/uL Low 4.2-5.4 [facility] Comment on above: Performed By: #### L 500.4050, L100.0100, L500.4100 #### [facility] [address] [place], [address] RDW SD 44.3 fl High 35.1-43.9 [facility] Comment on above: Performed By: #### L 500.4050, L100.0100, L500.4100 #### [facility] [address] [place], [address] WBC (Bld) [#/Vol] 4.9 10*3/uL Normal 4.4-11.0 [facility] Comment on above: Performed By: #### L 500.4050, L100.0100, L500.4100 #### [facility] [address] [place], [address] Calculated very low density lipoprotein (VLDL) cholesterol measurementOrdered By: Frantz Cotter on 06-04-2024 Calculated very low density lipoprotein (VLDL) cholesterol measurement 31 mg/dL 5-40 [facility] VLDL Cholesterol 31 mg/dL -40 [facility] Carbon dioxide measurementOr dered By: Frantz Cotter on 06-04-2024 CO2 [Moles/Vol] 26.5 mmol/L 22.0-29.0 [facility] Chloride measurementOrdered By: taylorwest monroemirza Cotter on 06-04-2024 Chloride [Moles/Vol] 100 mmol/L 96-108 [facility] Comprehensive Metabolic Prof ilon 06-04-2024 Albumin [Mass/Vol] 4.0 g/dL Normal 3.4-4.8 [facility] Comment on above: Performed By: #### L 500.4050, L100.0100, L500.4100 #### [facility] [address], [address] Albumin/Globulin [Mass ratio] 1.6 {ratio} Normal 0.9-2.4 [facility] Comment on above: Performed By: #### L 500.4050, L100.0100, L500.4100 #### [facility] [address] [place], [address] ALK PHOS 62 U/L Normal 35-104 [facility] Comment on above: Performed By: #### L 500.4050, L100.0100, L500.4100 #### [facility] [address] [place], [address] ALT [Catalytic activity/Vol] U/L Normal <=34 [facility] Comment on above: Performed By: #### L 500.4050, L100.0100, L500.4100 #### [facility] [address] [place], [address] Anion gap [Moles/Vol] 10 mmol/L Normal 5-15 [facility] Comment on above: Performed By: #### L 500.4050, L100.0100, L500.4100 #### [facility] [address] [place], [address] AST [Catalytic activity/Vol] 18 U/L Normal <=31 [facility] Comment on above: Performed By: #### L 500.4050, L100.0100, L500.4100 #### [facility] [address] [place], [address] Bilirubin [Mass/Vol] 0.42 mg/dL Normal 0.00-1.30 [facility] Comment on above: Performed By: #### L 500.4050, L100.0100, L500.4100 #### [facility] [address] [place], [address] BUN/CRE 18.8 RATIO Normal 10-20 [facility] Comment on above: Performed By: #### L 500.4050, L100.0100, L500.4100 #### [facility] [address] [place], [address] Calcium [Mass/Vol] 9.1 mg/dL Normal 7.6-11.0 [facility] Comment on above: Performed By: #### L 500.4050, L100.0100, L500.4100 #### [facility] [address] [place], [address] Chloride [Moles/Vol] 100 mmol/L Normal 96-108 [facility] Comment on above: Performed By: #### L 500.4050, L100.0100, L500.4100 #### [facility] [address] [place], [address] CO2 [Moles/Vol] 26.5 mmol/L Normal 22.0-29.0 [facility] Comment on above: Performed By: #### L 500.4050, L100.0100, L500.4100 #### [facility] [address] [place], [address] Creatinine [Mass/Vol] 0.86 mg/dL Normal 0.70-1.20 [facility] Comment on above: Performed By: #### L 500.4050, L100.0100, L500.4100 #### [facility] [address] [place], [address] GFR/1.73 sq M.predicted among non-blacks MDRD (S/P/Bld) [Vol rate/Area] 75 mL/min/{1.73_m2} Normal >60 [facility] Comment on above: Result Comment: mL/m in/1.73m2 CKD-EPI Creatinine Equation (2020) Performed By: #### L 500.4050, L100.0100, L500.4100 #### [facility] [address] [place], [address] Globulin (S) [Mass/Vol] 2.5 g/dL Normal 2.2-4.2 [facility] Comment on above: Performed By: #### L 500.4050, L100.0100, L500.4100 #### [facility] [address] [place], [address] Glucose [Mass/Vol] 77 mg/dL Normal 70-99 [facility] Comment on above: Performed By: #### L 500.4050, L100.0100, L500.4100 #### [facility] [address] [place], [address] Potassium [Moles/Vol] 4.4 mmol/L Normal 3.3-5.1 [facility] Comment on above: Performed By: #### L 500.4050, L100.0100, L500.4100 #### [facility] [address] [place], [address] Sodium [Moles/Vol] 136 mmol/L Normal 133-145 [facility] Comment on above: Performed By: #### L 500.4050, L100.0100, L500.4100 #### [facility] [address] [place], [address] T PROT 6.4 g/dL Normal 5.9-8.4 [facility] Comment on above: Performed By: #### L 500.4050, L100.0100, L500.4100 #### [facility] [address] [place], [address] Urea nitrogen [Mass/Vol] 16 mg/dL Normal 4-19 [facility] Comment on above: Performed By: #### L 500.4050, L100.0100, L500.4100 #### [facility] [address] [place], [address] Eosinophil percentageOrdered By: Frantz Cotter on 06-04-2024 Eosinophils/100 WBC (Bld) 1.6 % 0-5 [facility] Erythrocyte distribution wid th ratioOrdered By: Frantz Cotter on 06-04-2024 Erythrocyte distribution width (RBC) [Ratio] 12.8 % 11.6-14.6 [facility] Erythrocyte distribution wid th standard deviationOrdered By: Frantz Cotter on 06-04-2024 Erythrocyte distribution width (RBC) [Entitic vol] 44.3 fL High 35.1-43.9 [facility] Erythrocyte distribution width (RBC) [Ratio] 44.3 fl High 35.1-43.9 [facility] GFR/1.73 sq M.predicted marina g non-blacks MDRD (S/P/Bld) [Vol rate/Area]Ordered By: Frantz Cotter on 06-04-2024 Estimated GFR (MDRD) Non-Af Amer 75 >60 [facility] Comment on above: mL/min/1.73m2 CKD-EP I Creatinine Equation (2020) Glomerular filtration rate ( GFR) estimation/1.73 sq m using serum, plasma, or whole bOrdered By: Frantz Cotter on 06-04-2024 GFR/1.73 sq M.predicted among non-blacks MDRD (S/P/Bld) [Vol rate/Area] 75 mL/min/{1.73_m2} >60 [facility] Comment on above: mL/min/1.73m2 CKD-EP I Creatinine Equation (2020) Hematocrit Auto (Bld) [Volum e fraction]Ordered By: Frantz Cotter on 06-04-2024 Hematocrit (Bld) [Volume fraction] 38.3 % 37-47 [facility] Hemoglobin measurementOrdere d By: Frantz Cotter on 06-04-2024 Hemoglobin (Bld) [Mass/Vol] 12.3 g/dL 12.0-15.0 [facility] Immature granulocytes/100 WB C Auto (Bld)Ordered By: Frantz Cotter on 06-04-2024 Immature granulocytes/100 WBC (Bld) 0.200 % 0.0-0.9 [facility] Comment on above: IG% - Immature Granu locytes (promyelocytes, myelocytes and metamyelocytes) > 1% indicates that a LEFT SHIFT is Present. Internal Medicine Office Vis charito 06-04-2024 Internal Medicine Office Visit [facility] [address] [place], [place] [address] OFFICE VISIT Date of Service: 06/04/24 MR#: [id number] Acct: [id number] Name: WILLIE COBOS Rep #: [id number] : 1955 Provider: Dr. Frantz renae MD Age/Sex: 68/F Location: [facility] Status: Signed Intake Vital Signs 11/28/23 09:58 06/04/24 10:46 Height 5 ft 6 in 5 ft 6 in Weight: 126 lb BMI 20.3 BP 140/86 H Blood Pressure Location Lt brachial Position Sitting Respiration 18 Pulse 80 Pulse Source Monitor Temp 97.8 F Temp Source Temporal Pulse Oximetry (%) 100 Oxygen Delivery Method room air Intake Visit Reasons: 6 M FU Chief Complaint: 6 M FU Is patient in pain?: No Allergies Penicillins Allergy (Mild, Verified 06/04/24 10:44) Rash Medications ???Medication ???Instructions ???Recorded ???Confirmed ???Type arm brace (MINDY Elbow Brace) #1 ea 07/12/22 06/04/24 Rx famotidine 10 mg tablet (Pepcid AC) 10 mg PO DAILY 07/12/22 5 History inhalational spacing device #1 ea 01/18/23 06/04/24 Rx (BreatheRite MDI Spacer) albuterol sulfate 90 mcg/actuation 2 puff inhalation Q6H PRN 06/04/24 Rx aerosol inhaler shortness of breath or wheezing #8.5 grams calcium 600 mg (as 1 tab PO BID 11/28/23 06/04/24 His tory carbonate)-vitamin D3 20 mcg (800 unit) tablet citalopram 20 mg tablet 20 mg PO DAILY #90 tabs 01/28/24 0 06/04/24 Rx sumatriptan succinate 50 mg tablet See Rx Instructions PO .COMPLEX 02/09/24 06/04/24 Rx #12 tabs Have you fallen in the past year?: No PFSH Medical History Localized swelling of left foot Throat pain Puncture wound of left index finger Wears glasses Post-menopausal Cancer Depression Anxiety Alcohol use History of steroid therapy Easy bruising Injury of head and neck Gastric reflux History of pain when walking History of stress test PAD (peripheral artery disease) GERD (gastroesophageal reflux disease) Blood pressure elevated without history of HTN Asthmatic bronchitis with acute exacerbation Acute sinusitis, unspecified Health care maintenance Anxiety and depression Migraines Right elbow pain Colon cancer screening Hyperlipidemia Vitamin deficiency Pneumonia Osteopenia History of hearing problem History of frequent headaches Hx of emotional problems Bronchitis Carpal tunnel syndrome History of skin cancer HX: breast cancer Hx of breast lump Asthma Arthritis Surgical History Hx of colonoscopy H/O lumpectomy Family History Uncle Myocardial infarction Grandfather Heart disease Father Hx of blood clots Aunt Breast cancer Mother Anesthesia complication Sister Anesthesia complication Daughter Crohn's disease Social History Smoking Status: Never smoker alcohol intake: current alcohol intake frequency: a few times a month substance use type: does not use what type of physical activity do you participate in: walking and yoga HPI HPI Chief Complaint: 6 M FU Details: WILLIE COBOS, is a 68 F who presents to the office today for follow-up of her chronic conditions. No acute concerns at this time. History of hyperlipidemia, currently not on any medication. She states she has continued with dietary and lifestyle modifications. She would like to have her numbers rechecked. Blood pressure is elevated today at 140/86 mmHg. Prior history of elevations. She states that she has had a rather stressful past couple of weeks, recently discharged from the [facility]. Things are now settling. Does not routinely check her blood pressure at home. Other chronic medical conditions are stable. ROS Const Constitutional: No body ache, chills, excessive sweating, fatigue, fever(s), frequent falls, headache(s), snoring, weight change, sleep problems, abnormal sleep pattern or change in appetite Eyes Eyes: No blurry vision, change in vision, bulging eyes, floaters, visual disturbances, eye pain or Light sensitivity ENT ENT: No abnormal hearing, ear or mastoid pain, tinnitus, balance problems, nosebleed/epistaxis, nasal congestion, headache(s), neck pain or sore throat Resp Respiratory: No cough, excessive phlegm production, pain on inspiration, shortness of breath, snoring or wheezing Cardio Cardiology: No chest pain at rest, chest pain with exertion, excessive sweating, shortness of breath, dyspnea on exertion, lightheadedness, orthopnea or palpitations Gastro GI: No abdominal pain, change in bowel habits, constipation, cramping, diarrhea, nausea/dyspepsia or vomiting Genitourinary-F (more content not included)... Normal [facility] LDL calc ser/plasOrdered By: Frantz Cotter on 06-04-2024 Cholesterol in LDL [Mass/Vol] 127 mg/dL [facility] Comment on above: Ikxrnlmaqo=317-670 m g/dL & Higher Yogz=406 mg/dL or greater LDL Cholesterol, Calculated 127 mg/dL [facility] Comment on above: Phjbxrwksp=329-305 m g/dL & Higher Caum=916 mg/dL or greater Laboratory - Chemistry and C hemistry - challengeOrdered By: Connerjazmin Cotter on 06-04-2024 AST [Catalytic activity/Vol] 18 U/L <32 [facility] Lipid Profileon 06-04-2024 CHOL:HDL 3.72 Normal [facility] Comment on above: Performed By: #### L 500.4050, L100.0100, L500.4100 #### [facility] [address] [place], [address] Cholesterol [Mass/Vol] 217 mg/dL High <=200 [facility] Comment on above: Result Comment: Chol esterol level, Desirable <200 mg/dL Borderline high cholesterol 200-239 mg/dL High cholesterol >=240 mg/dL Recommendations of the NCEP Adult Treatment Panel for the following risk-cutoff thresholds for the [place] population. Performed By: #### L 500.4050, L100.0100, L500.4100 #### [facility] [address] [place], [address] Cholesterol in HDL [Mass/Vol] 58 mg/dL Normal [facility] Comment on above: Result Comment: Ruma onal Cholesterol Education Program (NCEP) guidelines: <40 mg/dL: Low HDL-cholesterol (major risk factor for CHD) >= 60 mg/dL: High HDL-cholesterol (negative risk factor for CHD) HDL-cholesterol is affected by a number of factors, e.g. smoking, exercise, hormones, sex and age. Performed By: #### L 500.4050, L100.0100, L500.4100 #### [facility] [address] [place], [address] Cholesterol in LDL [Mass/Vol] 127 mg/dL Normal [facility] Comment on above: Result Comment: Bord oaiuwg=313-630 mg/dL Higher Hget=185 mg/dL or greater Performed By: #### L 500.4050, L100.0100, L500.4100 #### [facility] [address] [place], [address] Cholesterol in VLDL [Mass/Vol] 31 mg/dL Normal 5-40 [facility] Comment on above: Performed By: #### L 500.4050, L100.0100, L500.4100 #### [facility] [address] [place], [address] Triglyceride [Mass/Vol] 157 mg/dL Normal [facility] Comment on above: Result Comment: The drugs N-Acetylcysteine and Metamizole may falsely depress this assay. Normal range: <150 mg/dL Borderline High: 150-199 mg/dL High: 200-499 mg/dL Very High: >500 mg/dL Performed By: #### L 500.4050, L100.0100, L500.4100 #### [facility] [address] [place], [address] Lymphocytes Auto (Unsp spec) [#/Vol]Ordered By: Frantz Cotter on 06-04-2024 Lymphocytes (Bld) [#/Vol] 0.91 10*3/uL 0.83-4.51 [facility] Lymphocytes/100 WBC Auto (Un sp spec)Ordered By: Frantz Cotter on 06-04-2024 Lymphocytes/100 WBC (Bld) 18.5 % Low 19-41 [facility] MCV (mean corpuscular volume ) determinationOrdered By: Frantz Cotter on 06-04-2024 MCV (RBC) [Entitic vol] 93.0 fL 81-99 [facility] Mean corpuscular hemoglobin (MCH) determinationOrdered By: Frantz Cotter on 06-04-2024 MCH (RBC) [Entitic mass] 29.9 pg 27.0-32.0 [facility] Mean corpuscular hemoglobin concentration (MCHC) determinationOrdered By: Frantz Cotter on 06-04-2024 MCHC (RBC) [Mass/Vol] 32.1 g/dL 32-36 [facility] Mean platelet volume determi nationOrdered By: Frantz Cotter on 06-04-2024 Platelet mean volume (Bld) [Entitic vol] 10.1 fL 6.2-12.0 [facility] Monocyte percentageOrdered B y: Frantz Cotter on 06-04-2024 Monocytes/100 WBC (Bld) 6.7 % 0-10 [facility] Neutrophil percentageOrdered By: Frantz Cotter on 06-04-2024 Neutrophils/100 WBC (Bld) 72.0 % High 47-70 [facility] Nucleated red blood cell per centageOrdered By: Frantz Cotter on 06-04-2024 Nucleated RBC/100 WBC (Bld) [Ratio] 0 % 0-5 [facility] Platelet countOrdered By: Elsy Cotter on 06-04-2024 Platelets (Bld) [#/Vol] 267 10*3/uL 150-450 [facility] RBC Auto (Bld) [#/Vol]Ordere d By: Frantz Cotter on 06-04-2024 RBC (Bld) [#/Vol] 4.12 10*6/uL Low 4.2-5.4 [facility] Screening total cholesterol/ high density lipoprotein (HDL) cholesterol ratioOrdered By: Frantz Cotter on 06-04-2024 Cholesterol.total/Choles terol in HDL [Mass ratio] 3.72 {ratio} [facility] Serum creatinine measurement (mass/volume)Ordered By: Frantz Cotter on 06-04-2024 Creatinine [Mass/Vol] 0.86 mg/dL 0.70-1.20 [facility] Serum globulin measurementOr dered By: Frantz Cotter on 06-04-2024 Globulin (S) [Mass/Vol] 2.5 g/dL 2.2-4.2 [facility] Serum glucose measurement (m ass/volume)Ordered By: Frantz Cotter on 06-04-2024 Glucose [Mass/Vol] 77 mg/dL 70-99 [facility] Serum or plasma alanine alfonso otransferase (ALT) measurementOrdered By: Frantz Cotter on 06-04-2024 ALT [Catalytic activity/Vol] U/L <35 [facility] Serum or plasma albumin ruthie urement (mass/volume)Ordered By: Frantz Cotter on 06-04-2024 Albumin [Mass/Vol] 4.0 g/dL 3.4-4.8 [facility] Serum or plasma albumin/glob ulin mass ratioOrdered By: [facility] 06-04-2024 Albumin/Globulin [Mass ratio] 1.6 {ratio} 0.9-2.4 [facility] Serum or plasma alkaline pam sphatase measurementOrdered By: Frantz Cotter 06-04-2024 ALP [Catalytic activity/Vol] 62 U/L 35-104 [facility] Serum or plasma anion gap de termination (moles/volume)Ordered By: Frantz Cotter 06-04-2024 Anion gap [Moles/Vol] 10 mmol/L 5-15 [facility] Serum or plasma calcium ruthie urement (mass/volume)Ordered By: Frantz Cotter 06-04-2024 Calcium [Mass/Vol] 9.1 mg/dL 7.6-11.0 [facility] Serum or plasma cholesterol in HDL measurement (mass/volume)Ordered By: Frantz Cotter 06-04-2024 Cholesterol in HDL [Mass/Vol] 58 mg/dL >40 [facility] Comment on above: National Cholesterol Education Program (NCEP) guidelines:<40 mg/dL: Low HDL-cholesterol (major risk factor for CHD)>= 60 mg/dL: High HDL-cholesterol (negative risk factor for CHD)HDL-cholesterol is affected by a number of factors, e.g. smoking, exercise, hormones, sex and age. Serum or plasma cholesterol measurement (mass/volume)Ordered By: Frantz Cotter 06-04-2024 Cholesterol [Mass/Vol] 217 mg/dL High <201 [facility] Comment on above: Cholesterol level, D esirable <200 mg/dLBorderline high cholesterol 200-239 mg/dLHigh cholesterol >=240 mg/dLRecommendations of the NCEP Adult Treatment Panel for the following risk-cutoff thresholds for the [place] population. Serum or plasma potassium me asurementOrdered By: Frantz Cotter on 06-04-2024 Potassium [Moles/Vol] 4.4 mmol/L 3.3-5.1 [facility] Serum or plasma sodium measu rement (moles/volume)Ordered By: Frantz Cotter on 06-04-2024 Sodium [Moles/Vol] 136 mmol/L 133-145 [facility] Serum or plasma urea nitroge n measurement (mass/volume)Ordered By: Frantz Cotter on 06-04-2024 Urea nitrogen [Mass/Vol] 16 mg/dL 4-19 [facility] Total proteinOrdered By: Hugo Cotter on 06-04-2024 Protein [Mass/Vol] 6.4 g/dL 5.9-8.4 [facility] Triglycerides measurementOrd ered By: Frantz Cotter on 06-04-2024 Triglyceride [Mass/Vol] 157 mg/dL <199 [facility] Comment on above: The drugs N-Acetylcy steine and Metamizole may falsely depress this assay. Normal range: <150 mg/dLBorderline High: 150-199 mg/dLHigh: 200-499 mg/dLVery High: >500 mg/dL White blood cell (WBC) count Ordered By: Frantz Cotter on 06-04-2024 WBC (Bld) [#/Vol] 4.9 10*3/uL 4.4-11.0 [facility] [place] SCREENING W TOMOon 09-19 [facility] Absolute lymphocyte countOrd ered By: Dr. Cotter on 07-12-2022 Lymphocytes Auto (Unsp spec) [#/Vol] 1.17 10*3/uL 0.83-4.51 [facility] Basophil percentageOrdered B y: Dr. Cotter on 07-12-2022 Basophils/100 WBC (Bld) 1.0 % 0-1 [facility] Bilirubin [Mass/Vol] 0.40 mg/dL 0.20-1.00 [facility] Comment on above: For patients on eltr ombopag therapy, use of Dimension [place] TBIL is not recommended. Chloride [Moles/Vol] 103 mmol/L 98-107 [facility] Cholesterol [Mass/Vol] 227 mg/dL <200 [facility] Comment on above: <200 mg/dL Desirable 200-240 mg/dL Borderline >240 mg/dL High Risk Eosinophils/100 WBC (Bld) 1.5 % 0-5 [facility] Glucose [Mass/Vol] 96 mg/dL 74-106 [facility] Neutrophils (Bld) [#/Vol] 2.5 10*3/uL 2.0-7.7 [facility] Neutrophils/100 WBC (Bld) 60.8 % 47-70 [facility] Potassium [Moles/Vol] 4.1 mmol/L 3.5-5.1 [facility] Protein [Mass/Vol] 6.8 g/dL 6.4-8.2 [facility] Sodium [Moles/Vol] 136 mmol/L 136-145 [facility] Triglyceride [Mass/Vol] 186 mg/dL <199 [facility] Comment on above: The drugs N-Acetylcy steine and Metamizole may falsely depress this assay.Serum Triglycerides Reference Interval Normal <150 mg/dL Borderline high 150 - 199 mg/dL High 200 - 499 mg/dL Very High > or = 500 mg/dL WBC (Bld) [#/Vol] 4.1 10*3/uL 4.4-11.0 [facility] Blood erythrocytes count (nu mber/volume)Ordered By: Dr. Cotter on 07-12-2022 RBC (Bld) [#/Vol] 4.07 10*6/uL 4.2-5.4 [facility] Blood hemoglobin measurement (mass/volume)Ordered By: Dr. Cotter on 07-12-2022 Hemoglobin (Bld) [Mass/Vol] 12.5 g/dL 12.0-15.0 [facility] Blood lymphocytes/100 leukoc ytesOrdered By: Dr. Cotter on 07-12-2022 Lymphocytes/100 WBC (Bld) 28.7 % 19-41 [facility] Blood monocytes/100 leukocyt esOrdered By: Dr. Cotter on 07-12-2022 Monocytes/100 WBC (Bld) 7.8 % 0-10 [facility] Blood platelet mean volumeOr dered By: Dr. Cotter on 07-12-2022 Platelet mean volume (Bld) [Entitic vol] 10.1 fL 6.2-12.0 [facility] Determination of erythrocyte mean corpuscular volume (MCV)Ordered By: Dr. Cotter on 07-12-2022 MCV (RBC) [Entitic vol] 94.3 fL 81-99 [facility] Hematocrit Auto (Bld) [Volum e fraction]Ordered By: Dr. Cotter on 07-12-2022 Hematocrit (Bld) [Volume fraction] 38.4 % 37-47 [facility] Laboratory - Chemistry and C hemistry - challengeOrdered By: Dr. Cotter on 07-12-2022 ALP [Catalytic activity/Vol] 63 U/L 45-117 [facility] ALT [Catalytic activity/Vol] 21 U/L 13-56 [facility] CO2 [Moles/Vol] 29.0 mmol/L 21.0-32.0 [facility] Globulin (S) [Mass/Vol] 3.2 g/dL 2.2-4.2 [facility] Urea nitrogen/Creatinine [Mass ratio] 19.8 mg/mg 10-20 [facility] Laboratory - Hematology and Cell countsOrdered By: Dr. Cotter on 07-12-2022 Erythrocyte distribution width (RBC) [Entitic vol] 44.7 fL 35.1-43.9 [facility] Erythrocyte distribution width (RBC) [Ratio] 12.8 % 11.6-14.6 [facility] Immature granulocytes/100 WBC (Bld) 0.200 % 0.0-0.9 [facility] Comment on above: IG% - Immature Granu locytes (promyelocytes, myelocytes and metamyelocytes) > 1% indicates that a LEFT SHIFT is Present. MCH (RBC) [Entitic mass] 30.7 pg 27.0-32.0 [facility] Nucleated RBC/100 WBC (Bld) [Ratio] 0 % 0-5 [facility] Auto (RBC) [Mass/Vol]Or dered By: Dr. Cotter on 07-12-2022 MCHC (RBC) [Mass/Vol] 32.6 g/dL 32-36 [facility] No Panel InformationOrdered By: Dr. Cotter on 07-12-2022 Estimated GFR (MDRD) Amer 80 mL/min >60 [facility] Comment on above: GFR Calc Estimated GFR (MDRD) Non-Af Amer 66 mL/min >60 [facility] Comment on above: Non- GFR Calc Vitamin D 25-Hydroxy 38.0 ng/mL [facility] Comment on above: Vitamin D 25(OH) Sta tus Range Deficiency <20 ng/mL (50nmol/L) Insufficiency 20 - 30 ng/mL (50 - 75 nmol/L) Sufficiency 30 - 100 ng/mL (75 - 250 nmol/L) Toxicity >100 ng/mL (>250 nmol/L) Platelets bldOrdered By: Dr. Cotter on 07-12-2022 Platelets (Bld) [#/Vol] 260 10*3/uL 150-450 [facility] Serum or plasma albumin ruthie urement (mass/volume)Ordered By: Dr. Cotter on 07-12-2022 Albumin [Mass/Vol] 3.6 g/dL 3.2-5.0 [facility] Serum or plasma albumin/glob ulin mass ratioOrdered By: Dr. Cotter on 07-12-2022 Albumin/Globulin [Mass ratio] 1.1 {ratio} 0.9-2.4 [facility] Serum or plasma calcium ruthie urement (mass/volume)Ordered By: Dr. Cotter on 07-12-2022 Calcium [Mass/Vol] 8.7 mg/dL 8.5-10.1 [facility] Serum or plasma cholesterol in HDL measurement (mass/volume)Ordered By: Dr. Cotter on 07-12-2022 Cholesterol in HDL [Mass/Vol] 61 mg/dL >40 [facility] Comment on above: The drugs N-Acetylcy steine and Metamizole may falsely depress this assay. Reference Range HDL <40 mg/dL Low HDL Cholesterol HDL >or= 60 mg/dL High HDL Cholesterol Serum or plasma cholesterol in VLDL measurement (mass/volume)Ordered By: Dr. Cotter on 07-12-2022 Cholesterol in VLDL [Mass/Vol] 37 mg/dL 5-40 [facility] Serum or plasma creatinine m easurement (mass/volume)Ordered By: Dr. Cotter on 07-12-2022 Creatinine [Mass/Vol] 0.91 mg/dL 0.55-1.02 [facility] Comment on above: The validity of the calculated GFR & GFRAA in patients over 70 years has not been determined. Clinical correlation is essential. Serum or plasma low density lipoprotein (LDL) cholesterol measurement (mass/volume)Ordered By: Dr. Cotter on 07-12-2022 Cholesterol in LDL [Mass/Vol] 129 mg/dL 0-130 [facility] Serum or plasma urea nitroge n measurement (mass/volume)Ordered By: Dr. Cotter on 07-12-2022 Urea nitrogen [Mass/Vol] 18 mg/dL 7-18 [facility] Thin prep Papanicolaou smear with manual screeningOrdered By: Dr. Cotter on 07-12-2022 Thin prep Papanicolaou smear with manual screening 20 U/L 15-37 [facility] Thin prep Papanicolaou smear with manual screening 4 5-15 [facility] Absolute lymphocyte counton 01-24-2022 Lymphocytes Auto (Unsp spec) [#/Vol] 0.99 10*3/uL 0.83-4.51 [facility] Work Phone: Basophil percentageon 2021 Basophils/100 WBC (Bld) 0.9 % 0-1 [facility] Work Phone: Bilirubin [Mass/Vol] 0.50 mg/dL 0.20-1.00 [facility] Work Phone: Comment on above: For patients on eltr ombopag therapy, use of Dimension [place] TBIL is not recommended. Chloride [Moles/Vol] 105 mmol/L 98-107 [facility] Work Phone: Cholesterol [Mass/Vol] 240 mg/dL <200 [facility] Work Phone: Comment on above: <200 mg/dL Desirable 200-240 mg/dL Borderline >240 mg/dL High Risk Eosinophils/100 WBC (Bld) 3.5 % 0-5 [facility] Work Phone: Glucose [Mass/Vol] 88 mg/dL 74-106 [facility] Work Phone: Neutrophils (Bld) [#/Vol] 1.9 10*3/uL 2.0-7.7 [facility] Work Phone: Neutrophils/100 WBC (Bld) 56.5 % 47-70 [facility] Work Phone: Potassium [Moles/Vol] 4.4 mmol/L 3.5-5.1 [facility] Work Phone: Protein [Mass/Vol] 7.0 g/dL 6.4-8.2 [facility] Work Phone: Sodium [Moles/Vol] 140 mmol/L 136-145 [facility] Work Phone: Triglyceride [Mass/Vol] 118 mg/dL <199 [facility] Work Phone: Comment on above: The drugs N-Acetylcy steine and Metamizole may falsely depress this assay.Serum Triglycerides Reference Interval Normal <150 mg/dL Borderline high 150 - 199 mg/dL High 200 - 499 mg/dL Very High > or = 500 mg/dL WBC (Bld) [#/Vol] 3.4 10*3/uL 4.4-11.0 [facility] Work Phone: Blood erythrocytes count (nu mber/volume)on 01-24-2022 RBC (Bld) [#/Vol] 4.33 10*6/uL 4.2-5.4 [facility] Work Phone: Blood hemoglobin measurement (mass/volume)on 01-24-2022 Hemoglobin (Bld) [Mass/Vol] 13.2 g/dL 12.0-15.0 [facility] Work Phone: Blood lymphocytes/100 leukoc yteson 01-24-2022 Lymphocytes/100 WBC (Bld) 28.9 % 19-41 [facility] Work Phone: [phone] Blood monocytes/100 leukocyt eson 01-24-2022 Monocytes/100 WBC (Bld) 9.9 % 0-10 [facility] Work Phone: Blood platelet mean volumeon 01-24-2022 Platelet mean volume (Bld) [Entitic vol] 9.8 fL 6.2-12.0 [facility] Work Phone: Determination of erythrocyte mean corpuscular volume (MCV)on 01-24-2022 MCV (RBC) [Entitic vol] 93.1 fL 81-99 [facility] Work Phone: Hematocrit Auto (Bld) [Volum e fraction]on 01-24-2022 Hematocrit (Bld) [Volume fraction] 40.3 % 37-47 [facility] Work Phone: Laboratory - Chemistry and C hemistry - challengeon 01-24-2022 ALP [Catalytic activity/Vol] 64 U/L 45-117 [facility] Work Phone: ALT [Catalytic activity/Vol] 18 U/L 13-56 [facility] Work Phone: [phone] CO2 [Moles/Vol] 30.0 mmol/L 21.0-32.0 [facility] Work Phone: Globulin (S) [Mass/Vol] 3.3 g/dL 2.2-4.2 [facility] Work Phone: [phone] Urea nitrogen/Creatinine [Mass ratio] 23.1 mg/mg - [facility] Work Phone: Laboratory - Hematology and Cell countson 01-24-2022 Erythrocyte distribution width (RBC) [Entitic vol] 44.7 fL 35.1-43.9 [facility] Work Phone: [phone] Erythrocyte distribution width (RBC) [Ratio] 13.1 % 11.6-14.6 [facility] Work Phone: Immature granulocytes/100 WBC (Bld) 0.300 % 0.0-0.9 [facility] Work Phone: Comment on above: IG% - Immature Granu locytes (promyelocytes, myelocytes and metamyelocytes) > 1% indicates that a LEFT SHIFT is Present. MCH (RBC) [Entitic mass] 30.5 pg 27.0-32.0 [facility] Work Phone: Nucleated RBC/100 WBC (Bld) [Ratio] 0 % 0-5 [facility] Work Phone: MCHC Auto (RBC) [Mass/Vol]on 01-24-2022 MCHC (RBC) [Mass/Vol] 32.8 g/dL 32-36 [facility] Work Phone: No Panel Informationon 01-24 Estimated GFR (MDRD) Amer 76 mL/min >60 [facility] Work Phone: Comment on above: GFR Calc Estimated GFR (MDRD) Non-Af Amer 63 mL/min >60 [facility] Work Phone: Comment on above: Non- GFR Calc Vitamin D 25-Hydroxy 40.5 ng/mL [facility] Work Phone: Comment on above: Vitamin D 25(OH) Sta tus Range Deficiency <20 ng/mL (50nmol/L) Insufficiency 20 - 30 ng/mL (50 - 75 nmol/L) Sufficiency 30 - 100 ng/mL (75 - 250 nmol/L) Toxicity >100 ng/mL (>250 nmol/L) Platelets bldon 01-24-2022 Platelets (Bld) [#/Vol] 260 10*3/uL 150-450 [facility] Work Phone: Serum or plasma albumin ruthie urement (mass/volume)on 01-24-2022 Albumin [Mass/Vol] 3.7 g/dL 3.2-5.0 [facility] Work Phone: Serum or plasma albumin/glob ulin mass ratioon 01-24-2022 Albumin/Globulin [Mass ratio] 1.1 {ratio} 0.9-2.4 [facility] Work Phone: Serum or plasma calcium ruthie urement (mass/volume)on 01-24-2022 Calcium [Mass/Vol] 9.1 mg/dL 8.5-10.1 [facility] Work Phone: Serum or plasma cholesterol in HDL measurement (mass/volume)on 01-24-2022 Cholesterol in HDL [Mass/Vol] 64 mg/dL >40 [facility] Work Phone: Comment on above: The drugs N-Acetylcy steine and Metamizole may falsely depress this assay. Reference Range HDL <40 mg/dL Low HDL Cholesterol HDL >or= 60 mg/dL High HDL Cholesterol Serum or plasma cholesterol in VLDL measurement (mass/volume)on 01-24-2022 Cholesterol in VLDL [Mass/Vol] 24 mg/dL 5-40 [facility] Work Phone: Serum or plasma creatinine m easurement (mass/volume)on 01-24-2022 Creatinine [Mass/Vol] 0.95 mg/dL 0.55-1.02 [facility] Work Phone: Comment on above: The validity of the calculated GFR & GFRAA in patients over 70 years has not been determined. Clinical correlation is essential. Serum or plasma low density lipoprotein (LDL) cholesterol measurement (mass/volume)on 01-24-2022 Cholesterol in LDL [Mass/Vol] 152 mg/dL 0-130 [facility] Work Phone: Serum or plasma urea nitroge n measurement (mass/volume)on 01-24-2022 Urea nitrogen [Mass/Vol] 22 mg/dL 7-18 [facility] Work Phone: Thin prep Papanicolaou smear with manual screeningon 01-24-2022 Thin prep Papanicolaou smear with manual screening 16 U/L 15-37 [facility] Work Phone: Thin prep Papanicolaou smear with manual screening 5 5-15 [facility] Work Phone: [place] SCREENING W Isaiah 09-17 [facility] XR CHEST 2V FRONTAL/LATon [facility] XR Chest PA and Lateralon IMPRESSION: No acute radiographic abnormality. [employer] [facility] Trans[facility] Date/Time: Sep 01 2021 9:47A Dictated by : IRENE BEATTY MD This examination was interpreted and the report reviewed and electronically signed by: IRENE BEATTY MD on Sep 01 2021 9:50AM EST [email or web address]_NOT_ USE_DIVISIO N OF RADIOLOGY * * *Final Report* * * DATE OF EXAM: Sep 01 2021 9:44AM WOX [id number] - XR CHEST 2V FRONTAL/LAT / PROCEDURE REASON: Cough * * * * Physician Interpretation * * * * EXAMINATION: CHEST RADIOGRAPH (2 VIEW FRONTAL & LATERAL) CLINICAL HISTORY: Cough MQ: XC2_6 EXAM DATE/TIME: 09/01/2021 9:44 AM COMPARISON: No relevant prior studies available. RESULT: Lines, tubes, and devices: None. Lungs and pleura: No consolidation. No lung mass. No pleural effusion. No pneumothorax. Cardiomediastinal silhouette: Normal cardiomediastinal silhouette. Bones and soft tissues: Unremarkable. [email or web address]_NOT_ USE_DIVISIO N OF RADIOLOGY Provider, [facility] Chaya [facility] - 09/01/2021 * * *Final Report* * * DATE OF EXAM: Sep 01 2021 9:44AM WOX [id number] - XR CHEST 2V FRONTAL/LAT / PROCEDURE REASON: Cough * * * * Physician Interpretation * * * * EXAMINATION: CHEST RADIOGRAPH (2 VIEW FRONTAL & LATERAL) CLINICAL HISTORY: Cough MQ: XC2_6 EXAM DATE/TIME: 09/01/2021 9:44 AM COMPARISON: No relevant prior studies available. RESULT: Lines, tubes, and devices: None. Lungs and pleura: No consolidation. No lung mass. No pleural effusion. No pneumothorax. Cardiomediastinal silhouette: Normal cardiomediastinal silhouette. Bones and soft tissues: Unremarkable. IMPRESSION IMPRESSION: No acute radiographic abnormality. [employer] Restorer: [facility] Transcribe Date/Time: Sep 01 2021 9:47A Dictated by : IRENE BEATTY MD This examination was interpreted and the report reviewed and electronically signed by: IRENE BEATTY MD on Sep 01 2021 9:50AM EST [facility] Radiology Study observation (narrative) Robbie tello [facility] XR Chest PA and LateralOrder ed By: [facility] Provider on 09-01-2021 [facility] Vital Signs Date Time Vital Sign Value Performing Clinician Charu roberson 12-02-2024 14:33-0400 Body height 167.[address] Frantz Cotter MD Work Phone: [facility] 12-02-2024 14:33-0400 Body mass index (BMI) [Ratio] 19.7 kg/m2 Dr. Frantz Cotter MD Work Phone: [facility] 12-02-2024 14:33-0400 Body temperature 97.1 [degF] Dr. Frantz Cotter MD Work Phone: [facility] 12-02-2024 14:33-0400 Body weight 55.[address] Frantz Cotter MD Work Phone: [facility] 12-02-2024 14:33-0400 Diastolic blood pressure 78 mm[Hg] Dr. Frantz Cotter MD Work Phone: [facility] 12-02-2024 14:33-0400 Heart rate 67 /min Dr. Frantz Cotter MD Work Phone: [facility] 12-02-2024 14:33-0400 Respiratory rate 16 /min Dr. Frantz Cotter MD Work Phone: [facility] 12-02-2024 14:33-0400 SaO2% (BldA) [Mass fraction] 99 % Dr. Frantz Cotter MD Work Phone: [facility] 12-02-2024 14:33-0400 Systolic blood pressure 132 mm[Hg] Dr. Frantz Cotter MD Work Phone: [facility] 11-18-2024 07:40-0400 Body height 167.6 cm Elizabeth [place] POLICE INSPECTOR.[employer] Work Phone: [facility] 11-18-2024 07:40-0400 Body mass index (BMI) [Ratio] 19.69 kg/m2 Elizabeth Tawana POLICE INSPECTOR.[employer] Work Phone: [facility] 11-18-2024 07:40-0400 Body weight 55.34 kg Elizabeth [place] POLICE INSPECTOR.[employer] Work Phone: [facility] 11-18-2024 07:40-0400 Diastolic blood pressure 84 mm[Hg] Elizabeth [place] POLICE INSPECTOR.[employer] Work Phone: [facility] 11-18-2024 07:40-0400 Systolic blood pressure 128 mm[Hg] Elizabeth [place] POLICE INSPECTOR.[employer] Work Phone: [facility] 11-09-2024 08:29-0400 Body temperature 99.1 [degF] Dr. Frantz Cotter MD Work Phone: [facility] 11-09-2024 08:29-0400 Diastolic blood pressure 86 mm[Hg] Dr. Frantz Cotter MD Work Phone: [facility] 11-09-2024 08:29-0400 Heart rate 74 /min Dr. Frantz Cotter MD Work Phone: [facility] 11-09-2024 08:29-0400 Respiratory rate 16 /min Dr. Frantz Cotter MD Work Phone: [facility] 11-09-2024 08:29-0400 SaO2% (BldA) [Mass fraction] 99 % Dr. Frantz Cotter MD Work Phone: [facility] 11-09-2024 08:29-0400 Systolic blood pressure 122 mm[Hg] Dr. Frantz Cotter MD Work Phone: [facility] 10-06-2024 08:29-0400 Body height 167.6 cm Ana Griffiths POLICE INSPECTOR.[employer] Work Phone: [facility] 10-06-2024 08:29-0400 Body mass index (BMI) [Ratio] 20.03 kg/m2 Ana Griffiths POLICE INSPECTOR.[employer] Work Phone: [facility] 10-06-2024 08:29-0400 Body temperature 98.4 [degF] Ana Arroyoenter POLICE INSPECTOR.[employer] Work Phone: [facility] 10-06-2024 08:29-0400 Body weight 56.3 kg Ana Griffiths POLICE INSPECTOR.[employer] Work Phone: [facility] 10-06-2024 08:29-0400 Diastolic blood pressure 78 mm[Hg] Ana Griffiths POLICE INSPECTOR.[employer] Work Phone: [facility] 10-06-2024 08:29-0400 Heart rate 66 /min Ana Arroyoenter POLICE INSPECTOR.[employer] Work Phone: [facility] 10-06-2024 08:29-0400 SaO2% (BldA) [Mass fraction] 98 % Ana Arroyoenter POLICE INSPECTOR.[employer] Work Phone: [facility] 10-06-2024 08:29-0400 Systolic blood pressure 110 mm[Hg] Ana Arroyoenter POLICE INSPECTOR.[employer] Work Phone: [facility] 09-27-2024 11:00-0400 Body temperature 98.2 [degF] Dr. Frantz Cotter MD Work Phone: [facility] 09-27-2024 11:00-0400 Diastolic blood pressure 80 mm[Hg] Dr. Frantz Cotter MD Work Phone: [facility] 09-27-2024 11:00-0400 Heart rate 60 /min Dr. Frantz Cotter MD Work Phone: [facility] 09-27-2024 11:00-0400 Respiratory rate 16 /min Dr. Frantz Cotter MD Work Phone: [facility] 09-27-2024 11:00-0400 SaO2% (BldA) [Mass fraction] 99 % Dr. Frantz Cotter MD Work Phone: [facility] 09-27-2024 11:00-0400 Systolic blood pressure 116 mm[Hg] Dr. Frantz Cotter MD Work Phone: [facility] 09-20-2024 08:03-0400 Body height 167.[address] Frantz Cotter MD Work Phone: [facility] 09-20-2024 08:03-0400 Body mass index (BMI) [Ratio] 19.8 kg/m2 Dr. Frantz Cotter MD Work Phone: [facility] 09-20-2024 08:03-0400 Body temperature 97.2 [degF] Dr. Frantz Cotter MD Work Phone: [facility] 09-20-2024 08:03-0400 Body weight 55.[address] Frantz Cotter MD Work Phone: [facility] 09-20-2024 08:03-0400 Diastolic blood pressure 90 mm[Hg] Dr. Frantz Cotter MD Work Phone: [facility] 09-20-2024 08:03-0400 Heart rate 67 /min Dr. Frantz Cotter MD Work Phone: [facility] 09-20-2024 08:03-0400 Respiratory rate 18 /min Dr. Frantz Cotter MD Work Phone: [facility] 09-20-2024 08:03-0400 SaO2% (BldA) [Mass fraction] 98 % Dr. Frantz Cotetr MD Work Phone: [facility] 09-20-2024 08:03-0400 Systolic blood pressure 136 mm[Hg] Dr. Frantz Cotter MD Work Phone: [facility] 09-06-2024 16:25-0400 Body temperature 98.9 [degF] Dr. Frantz Cotter MD Work Phone: [facility] 09-06-2024 16:25-0400 Diastolic blood pressure 80 mm[Hg] Dr. Frantz Cotter MD Work Phone: [facility] 09-06-2024 16:25-0400 Heart rate 76 /min Dr. Frantz Cotter MD Work Phone: [facility] 09-06-2024 16:25-0400 SaO2% (BldA) [Mass fraction] 98 % Dr. Frantz Cotter MD Work Phone: [facility] 09-06-2024 16:25-0400 Systolic blood pressure 122 mm[Hg] Dr. Frantz Cotter MD Work Phone: [facility] 07-02-2024 09:00-0400 Body height 167.[address] Frantz Cotter MD Work Phone: [facility] 07-02-2024 09:00-0400 Diastolic blood pressure 80 mm[Hg] Dr. Frantz Cotter MD Work Phone: [facility] 07-02-2024 09:00-0400 Respiratory rate 16 /min Dr. Frantz Cotter MD Work Phone: [facility] 07-02-2024 09:00-0400 Systolic blood pressure 128 mm[Hg] Dr. Frantz Cotter MD Work Phone: [facility] 06-25-2024 09:06-0400 Diastolic blood pressure 94 mm[Hg] Dr. Frantz Cotter MD Work Phone: [facility] 06-25-2024 09:06-0400 Systolic blood pressure 138 mm[Hg] Dr. Frantz Cotter MD Work Phone: [facility] 06-25-2024 08:30-0400 Body mass index (BMI) [Ratio] 20 kg/m2 Dr. Frantz Cotter MD Work Phone: [facility] 06-25-2024 08:30-0400 Body temperature 97.2 [degF] Dr. Frantz Cotter MD Work Phone: [facility] 06-25-2024 08:30-0400 Body weight 56.[address] Frantz Cotter MD Work Phone: [facility] 06-25-2024 08:30-0400 Heart rate 65 /min Dr. Frantz Cotter MD Work Phone: [facility] 06-25-2024 08:30-0400 Respiratory rate 16 /min Dr. Frantz Cotter MD Work Phone: [facility] 06-25-2024 08:30-0400 SaO2% (BldA) [Mass fraction] 99 % Dr. Frantz Cotter MD Work Phone: [facility] 06-09-2024 09:23-0500 Body temperature 98.5 [degF] Dr. Frantz Cotter MD Work Phone: [facility] 06-09-2024 09:23-0500 Diastolic blood pressure 76 mm[Hg] Dr. Frantz Cotter MD Work Phone: [facility] 06-09-2024 09:23-0500 Heart rate 70 /min Dr. Frantz Cotter MD Work Phone: [facility] 06-09-2024 09:23-0500 Respiratory rate 15 /min Dr. Frantz Cotter MD Work Phone: [facility] 06-09-2024 09:23-0500 SaO2% (BldA) [Mass fraction] 97 % Dr. Frantz Cotter MD Work Phone: [facility] 06-09-2024 09:23-0500 Systolic blood pressure 134 mm[Hg] Dr. Frantz Cotter MD Work Phone: [facility] 06-04-2024 10:46-0500 Body height 167.[address] Frantz Cotter MD Work Phone: [facility] 06-04-2024 10:46-0500 Body mass index (BMI) [Ratio] 20.3 kg/m2 Dr. Frantz Cotter MD Work Phone: [facility] 06-04-2024 10:46-0500 Body temperature 97.8 [degF] Dr. Frantz Cotter MD Work Phone: [facility] 06-04-2024 10:46-0500 Body weight 57.[address] Frantz Cotter MD Work Phone: [facility] 06-04-2024 10:46-0500 Diastolic blood pressure 86 mm[Hg] Dr. Frantz Cotter MD Work Phone: [facility] 06-04-2024 10:46-0500 Heart rate 80 /min Dr. Frantz Cotter MD Work Phone: [facility] 06-04-2024 10:46-0500 Respiratory rate 18 /min Dr. Frantz Cotter MD Work Phone: [facility] 06-04-2024 10:46-0500 SaO2% (BldA) [Mass fraction] 100 % Dr. Frantz Cotter MD Work Phone: [facility] 06-04-2024 10:46-0500 Systolic blood pressure 140 mm[Hg] Dr. Frantz Cotter MD Work Phone: [facility] 10-01-2023 08:37-0400 Body mass index (BMI) [Ratio] 19.94 kg/m2 Ana Griffiths APRN.CNP Work Phone: [facility] 10-01-2023 08:37-0400 Body temperature 97.2 [degF] Ana Griffiths POLICE INSPECTOR.[employer] INSERTER Work Phone: [facility] 10-01-2023 08:37-0400 Body weight 55.2 kg Ana Griffiths POLICE INSPECTOR.[employer]ERTER Work Phone: [facility] 10-01-2023 08:37-0400 Diastolic blood pressure 89 mm[Hg] Ana Griffiths POLICE INSPECTOR.[employer] INSERTER Work Phone: [facility] 10-01-2023 08:37-0400 Heart rate 67 /min Ana Griffiths POLICE INSPECTOR.[employer] INSERTER Work Phone: [facility] 10-01-2023 08:37-0400 SaO2% (BldA) [Mass fraction] 99 % Ana Griffiths POLICE INSPECTOR.[employer]ERTER Work Phone: [facility] 10-01-2023 08:37-0400 Systolic blood pressure 143 mm[Hg] Ana Grfifiths POLICE INSPECTOR.[employer] INSERTER Work Phone: [facility] 06-02-2023 08:59-0500 Body height 167.[address] Frantz Cotter Work Phone: [facility] 06-02-2023 08:59-0500 Body mass index (BMI) [Ratio] 20.3 kg/m2 Dr. Frantz Cotter Work Phone: [facility] 06-02-2023 08:59-0500 Body weight 57.[address] Frantz Cotter Work Phone: [facility] 05-30-2023 10:50-0500 Body mass index (BMI) [Ratio] 20.3 kg/m2 Dr. Frantz Cotter Work Phone: [facility] 05-30-2023 10:50-0500 Body temperature 97.8 [degF] Dr. Frantz Cotter Work Phone: [facility] 05-30-2023 10:50-0500 Body weight 57.[address] Frantz Cotter Work Phone: [facility] 05-30-2023 10:50-0500 Diastolic blood pressure 76 mm[Hg] Dr. Franzt Cotter Work Phone: [facility] 05-30-2023 10:50-0500 Heart rate 75 /min Dr. Frantz Cotter Work Phone: [facility] 05-30-2023 10:50-0500 Respiratory rate 16 /min Dr. Frantz Cotter Work Phone: [facility] 05-30-2023 10:50-0500 SaO2% (BldA) [Mass fraction] 99 % Dr. Frantz Cotter Work Phone: [facility] 05-30-2023 10:50-0500 Systolic blood pressure 118 mm[Hg] Dr. Frantz Cotter Work Phone: [facility] 02-26-2023 11:13-0500 Body height 167.[address] Frantz Cotter Work Phone: [facility] 02-26-2023 11:13-0500 Body mass index (BMI) [Ratio] 20.5 kg/m2 Dr. Frantz Cotter Work Phone: [facility] 02-26-2023 11:13-0500 Body temperature 97.8 [degF] Dr. Frantz Cotter Work Phone: [facility] 02-26-2023 11:13-0500 Body weight 57.[address] Frantz Cotter Work Phone: [facility] 02-26-2023 11:13-0500 Diastolic blood pressure 70 mm[Hg] Dr. Frantz Cotter Work Phone: [facility] 02-26-2023 11:13-0500 Heart rate 63 /min Dr. Frantz Cotter Work Phone: [facility] 02-26-2023 11:13-0500 Respiratory rate 16 /min Dr. Frantz Cotter Work Phone: [facility] 02-26-2023 11:13-0500 SaO2% (BldA) [Mass fraction] 96 % Dr. Frantz Cotter Work Phone: [facility] 02-26-2023 11:13-0500 Systolic blood pressure 120 mm[Hg] Dr. Frantz Cotter Work Phone: [facility] 01-23-2023 13:47-0400 Body mass index (BMI) [Ratio] 20.6 kg/m2 Dr. Frantz Cotter Work Phone: [facility] 01-23-2023 13:47-0400 Body temperature 99.7 [degF] Dr. Frantz Cotter Work Phone: [facility] 01-23-2023 13:47-0400 Body weight 58.[address] Frantz Cotter Work Phone: [facility] 01-23-2023 13:47-0400 Diastolic blood pressure 108 mm[Hg] Dr. Frantz Cotter Work Phone: [facility] 01-23-2023 13:47-0400 Heart rate 82 /min Dr. rFantz Cotter Work Phone: [facility] 01-23-2023 13:47-0400 Respiratory rate 18 /min Dr. Frantz Cotter Work Phone: [facility] 01-23-2023 13:47-0400 SaO2% (BldA) [Mass fraction] 98 % Dr. Frantz Cotter Work Phone: [facility] 01-23-2023 13:47-0400 Systolic blood pressure 144 mm[Hg] Dr. Frantz Cotter Work Phone: [facility] 01-18-2023 15:41-0400 Respiratory rate 17 /min Dr. Frantz Cotter Work Phone: [facility] 01-18-2023 15:41-0400 SaO2% (BldA) [Mass fraction] 99 % Dr. Frantz Cotter Work Phone: [facility] 01-18-2023 14:25-0400 Heart rate 65 /min Dr. Frantz Cotter Work Phone: [facility] 01-18-2023 13:38-0400 Body height 167.[address] Frantz Cotter Work Phone: [facility] 01-18-2023 13:38-0400 Body mass index (BMI) [Ratio] 20.9 kg/m2 Dr. Frantz Cotter Work Phone: [facility] 01-18-2023 13:38-0400 Body temperature 98.5 [degF] Dr. Frantz Cotter Work Phone: [facility] 01-18-2023 13:38-0400 Body weight 58.[address] Frantz Cotter Work Phone: [facility] 01-18-2023 13:38-0400 Diastolic blood pressure 103 mm[Hg] Dr. Frantz Cotter Work Phone: [facility] 01-18-2023 13:38-0400 Systolic blood pressure 143 mm[Hg] Dr. Frantz Cotter Work Phone: [facility] 01-14-2023 10:30-0400 Body mass index (BMI) [Ratio] 20.6 kg/m2 Dr. Frantz Cotter Work Phone: [facility] 01-14-2023 10:30-0400 Body temperature 97.3 [degF] Dr. Frantz Cotter Work Phone: [facility] 01-14-2023 10:30-0400 Body weight 58.[address] Frantz Cotter Work Phone: [facility] 01-14-2023 10:30-0400 Diastolic blood pressure 87 mm[Hg] Dr. Frantz Cotter Work Phone: [facility] 01-14-2023 10:30-0400 Heart rate 76 /min Dr. Frantz Cotter Work Phone: [facility] 01-14-2023 10:30-0400 Respiratory rate 16 /min Dr. Frantz Cotter Work Phone: [facility] 01-14-2023 10:30-0400 SaO2% (BldA) [Mass fraction] 96 % Dr. Frantz Cotter Work Phone: [facility] 01-14-2023 10:30-0400 Systolic blood pressure 137 mm[Hg] Dr. Frantz Cotter Work Phone: [facility] 01-01-2023 09:10-0400 Body mass index (BMI) [Ratio] 19.3 kg/m2 Dr. Frantz Cotter Work Phone: [facility] 01-01-2023 09:10-0400 Body temperature 97 [degF] Dr. Frantz Cotter Work Phone: [facility] 01-01-2023 09:10-0400 Body weight 57.[address] Frantz Cotter Work Phone: [facility] 01-01-2023 09:10-0400 Diastolic blood pressure 80 mm[Hg] Dr. Frantz Cotter Work Phone: [facility] 01-01-2023 09:10-0400 Heart rate 74 /min Dr. Frantz Cotter Work Phone: [facility] 01-01-2023 09:10-0400 Respiratory rate 16 /min Dr. Frantz Cotter Work Phone: [facility] 01-01-2023 09:10-0400 SaO2% (BldA) [Mass fraction] 97 % Dr. Frantz Cotter Work Phone: [facility] 01-01-2023 09:10-0400 Systolic blood pressure 118 mm[Hg] Dr. Frantz Cotter Work Phone: [facility] 12-26-2022 10:44-0400 Body mass index (BMI) [Ratio] 19.5 kg/m2 Dr. Frantz Cotter Work Phone: [facility] 12-26-2022 10:44-0400 Body temperature 97.3 [degF] Dr. Frantz Cotter Work Phone: [facility] 12-26-2022 10:44-0400 Body weight 58.[address] Frantz Cotter Work Phone: [facility] 12-26-2022 10:44-0400 Diastolic blood pressure 86 mm[Hg] Dr. Frantz Cotter Work Phone: [facility] 12-26-2022 10:44-0400 Heart rate 69 /min Dr. Frantz Cotter Work Phone: [facility] 12-26-2022 10:44-0400 Respiratory rate 16 /min Dr. Frantz Cotter Work Phone: [facility] 12-26-2022 10:44-0400 SaO2% (BldA) [Mass fraction] 98 % Dr. Frantz Cotter Work Phone: [facility] 12-26-2022 10:44-0400 Systolic blood pressure 128 mm[Hg] Dr. Frantz Cotter Work Phone: [facility] 07-12-2022 13:05-0400 Body height 168.[address] Cathy Sheikh Work Phone: [facility] 07-12-2022 13:05-0400 Body mass index (BMI) [Ratio] 20 kg/m2 Dr. Cathy Sheikh Work Phone: [facility] 07-12-2022 13:05-0400 Body temperature 95 [degF] Dr. Cathy Sheikh Work Phone: [facility] 07-12-2022 13:05-0400 Body weight 56.[address] Cathy Sheikh Work Phone: [facility] 07-12-2022 13:05-0400 Diastolic blood pressure 84 mm[Hg] Dr. Cathy Sheikh Work Phone: [facility] 07-12-2022 13:05-0400 Heart rate 84 /min Dr. Cathy Sheikh Work Phone: [facility] 07-12-2022 13:05-0400 Respiratory rate 18 /min Dr. Cathy Sheikh Work Phone: [facility] 07-12-2022 13:05-0400 SaO2% (BldA) [Mass fraction] 98 % Dr. Cathy Sheikh Work Phone: [facility] 07-12-2022 13:05-0400 Systolic blood pressure 134 mm[Hg] Dr. Cathy Sheikh Work Phone: [facility] 09-01-2021 08:51-0400 Body temperature 98.4 [degF] Ariel Helms APRN.[employer] ST[employer] INSERTER Work Phone: [facility] 09-01-2021 08:51-0400 Body weight 56.97 kg Ariel Helms APRN.[employer]ERTER Work Phone: [facility] 09-01-2021 08:51-0400 Diastolic blood pressure 76 mm[Hg] Ariel Helms APRN.[employer]ERTER Work Phone: [facility] 09-01-2021 08:51-0400 Heart rate 74 /min Ariel Helms APRN.[employer] INSERTER Work Phone: [facility] 09-01-2021 08:51-0400 Respiratory rate 20 /min Ariel Helms POLICE INSPECTOR.[employer]ERTER Work Phone: [facility] 09-01-2021 08:51-0400 SaO2% (BldA) [Mass fraction] 97 % Ariel Helms POLICE INSPECTOR.[employer] INSERTER Work Phone: [facility] 09-01-2021 08:51-0400 Systolic blood pressure 120 mm[Hg] Ariel Helms POLICE INSPECTOR.[employer] INSERTER Work Phone: [facility] Encounters Encounter Date Encounter Type Care Provider Facility Start: 01-18-2025 End: 01-18-2025 Patient encounter procedure Joann GARCIA -[facility] Work Phone: Start: 01-18-2025 End: 01-18-2025 ambulatory Frantz Cotter Facility:[facility] Start: 12-02-2024 End: 12-02-[address] Frantz Cotter MD Work Phone: -[facility] Start: 12-02-2024 End: 12-02-[address] Frantz Cotter MD -[facility] Work Phone: Start: 12-02-2024 End: 12-02-[address] Frantz Cotter MD -[facility] Work Phone: Start: 12-02-2024 End: 12-02-[address] Frantz Cotter MD [facility] Start: 12-02-2024 End: 12-02-[address] Frantz Cotter MD Work Phone: -[facility] Start: 12-02-2024 End: 12-02-2024 ambulatory Frantz Cotter Facility:[facility] Start: 11-18-2024 End: 11-18-2024 ambulatory CATHY SHEIKH Facility:[facility] Start: 11-18-2024 Encounter for gynecological examination (general) (routine) without abnormal findings ELIZABETH HANDY [facility] Start: 11-18-2024 End: 11-18-2024 Patient encounter procedure [place] GARCIA.[employer] INSERTER Work Phone: OB/Gynecology Comment on above: Encounter for gyneco logical examination (general) (routine) without abnormal findings (Primary Dx); Encounter for screening mammogram for breast cancer; Screening for malignant neoplasm of cervix; Encounter for screening for human papillomavirus (HPV) Start: 11-18-2024 End: 11-18-2024 Patient encounter status Elizabeth Mcqueencalf RADHA.[employer] INSERTER Work Phone: [facility] Work Phone: Start: 11-09-2024 End: 11-09-2024 Patient encounter procedure Alfie Balderas [facility] Work Phone: Start: 11-09-2024 End: 11-09-[address] Frantz Cotter MD Work Phone: -[facility] Start: 10-06-2024 End: 10-06-2024 Follow-up encounter Ana Griffiths APRN.[employer] INSERTER Work Phone: Hematology/Oncology Comment on above: Encounter for follow -up surveillance of breast cancer (Primary Dx); Encounter for screening mammogram for high-risk patient Start: 10-06-2024 End: 10-06-2024 Patient encounter procedure Ana Griffiths APRN.[employer] INSERTER Work Phone: Hematology/Oncology Start: 10-06-2024 End: 10-06-2024 ambulatory ANA GRIFFITHS Facility:[facility] Start: 09-30-2024 ambulatory CATHY SHEIKH Facilit y:[facility] Start: 09-30-2024 End: 09-30-2024 Subsequent hospital visit by physician Screen Mammo [facility] Mamm[facility] Comment on above: Personal history of breast cancer [Z85.3] Start: 09-27-2024 End: 09-27-2024 Patient encounter procedure Alfie Balderas [facility] Work Phone: Start: 09-27-2024 End: 09-27-[address] Frantz Cotter MD Work Phone: [facility] Work Phone: Start: 09-27-2024 End: 09-27-2024 ambulatory Alfie JOHNSON Facility:[facility] Start: 09-20-2024 End: 09-20-[address] Frantz Cotter MD -[facility] Work Phone: Start: 09-20-2024 End: 09-20-[address] Frantz Cotter MD Work Phone: [facility] Work Phone: Start: 09-06-2024 End: 09-06-2024 Patient encounter procedure Alfie JOHNSON -[facility] Work Phone: Start: 09-06-2024 End: 09-06-[address] Frantz Cotter MD Work Phone: [facility] Work Phone: Start: 09-06-2024 End: 09-06[facility] Start: 07-02-2024 End: 07-02-[address] Frantz Cotter MD -[facility] Work Phone: Start: 07-02-2024 End: 07-02-2024 [facility] Start: 06-25-2024 End: 06-25-2024 Patient encounter procedure Emeterio JOHNSON -[facility] Work Phone: Start: 06-25-2024 End: 06-[facility] Start: 06-09-2024 End: 06-09-2024 Patient encounter procedure Al Flores NP-[facility] -[facility] Work Phone: Start: 06-09-2024 End: 06-09-2024 ambulatory [facility] Facility:[facility] Start: 06-04-2024 End: 06-04-[address] Frantz Cotter MD -[facility] Work Phone: Start: 06-04-2024 End: 06-04-[address] Frantz Cotter MD [facility] Start: 06-04-2024 End: 06-04-[address] Frantz Cotter MD Work Phone: [facility] Work Phone: Start: 06-04-2024 End: 06-04-2024 ambulatory Frantz Cotter Facility:[facility] Start: 10-01-2023 End: 10-01-2023 ambulatory Ana Griffiths APRN.[employer] INSERTER Work Phone: Hematology/Oncology Comment on above: Personal history of breast cancer (Primary Dx); Encounter for screening mammogram for high-risk patient Start: 10-01-2023 End: 10-01-2023 Patient encounter procedure Ana Griffiths APRN.[employer]ERTER Work Phone: Hematology/Oncology Start: 09-26-2023 Documentation procedure Mammog whitney Coordinator [facility] Department Start: 09-26-2023 Letter encounter Mammography Coordinator [facility] Department Start: 09-26-2023 End: 09-26-2023 Subsequent hospital visit by physician Screen Mammo [facility] Mamm[facility] Comment on above: Personal history of breast cancer [Z85.3] Start: 07-09-2023 End: 07-09-[address] Frantz Cotter Work Phone: [facility] Work Phone: Start: 07-09-2023 End: 07-09-[address] Frantz Cotter Work Phone: [facility] Work Phone: Start: 06-11-2023 Non-patient / Non-visit Dr. Elsy Cotter Work Phone: [facility] Start: 06-11-2023 End: 06-11-[address] Frantz Cotter Work Phone: [facility] Work Phone: Start: 06-11-2023 End: 06-11-[address] Frantz Cotter Work Phone: [facility] Work Phone: Start: 06-02-2023 Non-patient / Non-visit Dr. Elsy Cotter Work Phone: [facility] Work Phone: Start: 05-30-2023 End: 05-30-2023 Encounter for general adult medical examination without abnormal findings Dr. Frantz Cotter Work Phone: [facility] Start: 05-30-2023 End: 05-30-[address] Frantz Cotter Work Phone: [facility] Work Phone: Start: 03-14-2023 Non-patient / Non-visit Dr. Elsy Cotter Work Phone: [facility] Start: 03-13-2023 End: 03-13-[address] Frantz Cotter Work Phone: [facility] Work Phone: Start: 03-13-2023 End: 03-13-[address] Frantz Cotter Work Phone: [facility]Pulmonary Services/Neurology Work Phone: Start: 02-26-2023 End: 02-26-[address] Frantz Cotter Work Phone: [facility] Internal Medicine Work Phone: Start: 01-23-2023 End: 01-23-[address] Frantz Cotter Work Phone: [facility] Internal Medicine Work Phone: Start: 01-18-2023 End: 01-18-2023 Emergency department patient visit Dr. Frantz Cotter Work Phone: [facility]Emergency Department Work Phone: Start: 01-14-2023 End: 01-14-[address] Frantz Cotter Work Phone: [facility] Work Phone: Start: 01-14-2023 End: 01-14-[address] Frantz Cotter Work Phone: [facility] Work Phone: Start: 01-01-2023 End: 01-01-[address] Frantz Cotter Work Phone: [facility] Internal Medicine Work Phone: Start: 12-26-2022 End: 12-26-[address] Frantz Cotter Work Phone: [facility] Work Phone: Start: 09-19-2022 Documentation procedure Mammog whitney [facility] Start: 09-19-2022 Letter encounter Mammography Coordinator [facility] Department Start: 09-19-2022 End: 09-19-2022 Subsequent hospital visit by physician Screen Mammo [facility] Mamm[facility] Comment on above: Personal history of breast cancer [Z85.3] Start: 07-12-[address] Rosita Sheikh Work Phone: [facility] Start: 07-12-2022 End: 07-12-[address] Cathy Sheikh Work Phone: [facility] Work Phone: Start: 07-12-2022 End: 07-12-2022 Encounter for general adult medical examination without abnormal findings Dr. Cathy Sheikh Work Phone: [facility] Start: 07-12-2022 End: 07-12-[address] Cathy Sheikh Work Phone: [facility] Internal Medicine Start: 03-22-2022 End: 03-22-2022 ambulatory [facility] Work Phone: Start: 03-22-2022 End: 03-22-2022 Discharged Recurring [facility]-Physical Therapy Start: 02-25-2022 End: 02-25-2022 Subsequent hospital visit by physician Mri Radio [facility] (I-Stat/1.5t) Work Phone: Radiology Comment on above: Left without seen Start: 01-24-2022 End: 01-24-2022 ambulatory [facility] Work Phone: Start: 01-24-2022 End: 01-24-2022 Patient encounter procedure [facility] Start: 09-17-2021 ambulatory Ana hendrix APRN.CNP Work Phone: Hematology/Oncology Comment on above: mammogram Start: 09-17-2021 E-mail encounter fro m caregiver Ana Griffiths APRN.CNP Work Phone: [facility] Start: 09-17-2021 Telephone encounter Ana caballero APRN.[employer] INSERTER Work Phone: Hematology/Oncology Comment on above: Results Start: 09-17-2021 End: 09-17-2021 Subsequent hospital visit by physician Screen Mammo [facility] Mamm[facility] Comment on above: Personal history of breast cancer [Z85.3] Start: 09-01-2021 End: 09-01-2021 Subsequent hospital visit by physician Xr [facility] Work Phone: Radiology Comment on above: Cough [R05.9] Start: 09-01-2021 End: 09-01-2021 Patient encounter procedure Ariel Helms POLICE INSPECTOR.[employer] INSERTER Work Phone: [facility] Comment on above: URI, acute (Primary Dx); Cough; Exposure to COVID-19 virus; History of asthma Procedures Date Procedure Procedure Detail Performing Clinician Start: 12-02-2024 Vitamin D, 25-hydrox y measurement Dr. Frantz Cotter MD Work Phone: Comment on above: Vitamin D StatusDefi ciency: <20 ng/mL (50nmol/L)Insufficiency: 20-30 ng/mL (50-75 nmol/L)Sufficiency: 30-100 ng/mL (75-250 nmol/L)Toxicity: >100 ng/mL (>250 nmol/L) Start: 09-27-2024 Plain X-ray of toe Dr. Frantz Cotter MD Work Phone: Start: 09-06-2024 X-ray of chest, PA a nd lateral views Dr. Frantz Cotter MD Work Phone: Start: 07-09-2023 Dual energy X-ray absorptiometry Dr. Frantz Cotter Work Phone: Start: 01-18-2023 Plain chest X-ray Dr. Mariano Cotter Work Phone: Start: 01-14-2023 Plain chest X-ray Dr. Mariano Cotter Work Phone: Start: 01-01-2023 Plain chest X-ray Dr. Mariano Cotter Work Phone: Start: 09-19-2022 End: 09-19-2022 Mammography Ana Griffiths POLICE INSPECTOR.[employer] Work Phone: Start: 09-17-2021 [place] SCREENING [facility] PURVI Da anamariay Griffiths POLICE INSPECTOR.[employer] INSERTER Work Phone: Start: 09-17-2021 Adult depression scr eening assessment Screen [facility] Start: 09-17-2021 Mammography [place] Carp enter POLICE INSPECTOR.[employer] INSERTER Work Phone: Start: 09-01-2021 Radiologic exam ches t 2 views Ariel Helms APRN.DINORA Work Phone: Start: 04-07-2021 Adult depression scr eening assessment Ariel Helms APRN.DINORA Work Phone: Start: 09-13-2020 Mammography Ariel nicolas APRN.CNP Work Phone: Start: 11-05-2013 Colonoscopy Ariel nicolas APRN.DINORA Work Phone: History of mastectomy H/O lumpectomy Dr. Cathy Sheikh Work Phone: Plan of Treatment Date Care Activity Detail Author Start: 09-29-2033 Urine microalbumin profile DTaP,Tdap,Td Vaccine (2 - Td or Tdap) [facility] Start: 10-13-2025 End: 10-13-2025 ambulatory 10/13/2025 8:00 AM EDT Visit (SP) Office Hematology/Oncology [address] [place] [id number] Ana Griffiths APRN.CNP [address] [place] [address] 1 YR OV Hematology/Oncology Comment on above: 1 YR OV Start: 10-06-2025 End: 11-05-2025 DBT Breast - bilateral screening SJ SCREENING W PURVI Radiology Routine Encounter for follow-up surveillance of breast cancer Encounter for screening mammogram for high-risk patient Expected: 10/06/2025 (Approximate), Expires: 11/05/2025 [facility] Work Phone: Comment on above: Expected: 10/06/2025 (Approximate), Expires: 11/05/2025 Start: 10-06-2025 End: 10-06-2025 Patient encounter procedure 10/06/2025 8:10 AM EDT Appointment Mammogram [address] [place] [id number] ncounter for follow-up surveillance of breast cancer [Z08, Z85.3]; Encounter for screening mammogram for high-risk patient [Z12.31] Mammogram Comment on above: ncounter for follow- up surveillance of breast cancer [Z08, Z85.3]; Encounter for screening mammogram for high-risk patient [Z12.31] Start: 09-30-2025 Screening for malign ant neoplasm of breast Mammogram Screening [facility] Start: 12-06-2024 Influenza vaccination Influenza Vacc ine (#1) [facility] Start: 11-18-2024 End: 11-18-2024 Patient encounter procedure 11/18/2024 7:30 AM EDT Office Visit OB/Gynecology [address] [place] [address] Elizabeth Handy APRN.[employer] [address] [place] [address] New Annual-est care OB/Gynecology Comment on above: New Annual-est care Start: 10-07-2024 End: 10-07-2024 ambulatory 10/07/2024 8:30 AM EDT Visit (SP) Office Hematology/Oncology [address] [place] [address] Ana Griffiths, RADHA.[employer] [address] [place] [address] 1 YR OV* MAMMO DONE 10/30/2024 Hematology/Oncology Comment on above: 1 YR OV* MAMMO DONE 10/30/2024 Start: 10-06-2024 End: 10-06-2024 ambulatory 10/06/2024 8:30 AM EDT Visit (SP) Office Hematology/Oncology [address] [place] [address] Ana Griffiths, RADHA.[employer] [address] [place] [address] 1 YR OV* MAMMO DONE 10/30/2024 Hematology/Oncology Comment on above: 3 YR OV* MAMMO DONE 10/30/2024 Start: 09-30-2024 End: 09-30-2024 Patient encounter procedure 09/30/2024 7:50 AM EDT Appointment Mammogram [address] [place] [address] MAMMO W PURVI Mammogram Comment on above: MAMMO W PURVI Start: 09-27-2024 Patient referral [facility] Work Phone: Start: 09-25-2024 Screening for malign ant neoplasm of breast Mammogram Screening [facility] Start: 09-06-2024 X-ray of chest, PA a nd lateral views Chest PA and Lateral [facility] Start: 09-06-2024 XR Chest PA and Lateral [facility] Start: 06-27-2024 Covid-19 Vaccine ( season) Covid-19 Vaccine () [facility] Start: 04-07-2024 Advance Directive Discussion Advance Directive Discussion [facility] Start: 04-07-2024 Medicare Advantage Annual Wellness Visit Medicare Advantage Annual Wellness Visit [facility] Start: 12-07-2023 Covid-19 Vaccine ( season) Covid-19 Vaccine () [facility] Start: 12-07-2023 Influenza vaccination Influenza Vacc ine (#1) [facility] Start: 10-01-2023 End: 10-01-2023 ambulatory 10/01/2023 8:00 AM EDT Visit (SP) Office Hematology/Oncology [address] [place] [address] Ana Griffiths APRN.[employer]ER[employer] [address] [place] [address] 1 YR OV/MAMM 09/24* Hematology/Oncology Comment on above: 3 YR OV/MAMM 09/24* Start: 09-20-2023 Mammography [facility] Start: 09-20-2023 Screening for malign ant neoplasm of breast Mammogram Screening [facility] Start: 05-30-2023 Patient referral [facility] Work Phone: Start: 04-07-2023 Advance Directive Discussion Advance Directive Discussion [facility] Start: 04-07-2023 Behavioral Health Screening Behavioral Health Screening [facility] Start: 01-18-2023 [facility] Start: 12-06-2022 Covid-19 Vaccine ( season) Covid-19 Vaccine ( season) [facility] Start: 12-06-2022 Influenza vaccination Influenza Vacc ine (#1) [facility] Start: 09-17-2022 Adult depression screening assessment DEPRESSION SCREENING [facility] Start: 09-17-2022 Mammography MAMMOGRAM [facility] Start: 07-12-2022 Patient referral [facility] Work Phone: Start: 2022 ADVANCE DIRECTIVE DISCUSSION ADVANCE DIRECTIVE DISCUSSION [facility] Start: 2022 BONE DENSITY BONE DENSITY [facility] Start: 2022 Bone Density Screening Bone Density Screening [facility] Start: 2022 Pneumococcal Vaccine : 65+ (2 - PCV) Pneumococcal Vaccine: 65+ (2 - PCV) [facility] Start: 2022 PNEUMOCOCCAL: 65+ (1 - PCV) PNEUMOCOCCAL: 65+ (1 - PCV) [facility] Start: 2022 Screening for osteoporosis Bone Density Screening [facility] Start: 04-07-2022 Adult depression screening assessment DEPRESSION SCREENING [facility] Start: 04-07-2022 DEPRESSION ASSESSMENT DEPRESSION ASS ESSMENT [facility] Start: 12-06-2021 Influenza vaccination INFLUENZ A (Season Ended) [facility] Start: 09-13-2021 Mammography MAMMOGRAM [facility] Start: 2017 RSV Vaccine (1 - 1-d ose 60+ series) RSV Vaccine (1 - 1-dose 60+ series) [facility] Start: 07-14-2015 DIABETES SCREEN DIABETES SCREEN [facility] Start: 07-14-2015 Diabetes Screening Diabetes Screenin g [facility] Start: 11-05-2014 Colonoscopy COLONOSCOPY [facility] Start: 11-05-2014 COLORECTAL CANCER SCREENING COLORECTAL CANCER SCREENING [facility] Start: 11-05-2014 Screening for malign ant neoplasm of colon [facility] Start: 06-09-2007 SHINGRIX VACCINE (1 of 2) SHINGRIX VACCINE (1 of 2) [facility] Start: 2002 COLOGUARD (FIT-DNA) COLOGUARD (FIT-D NA) [facility] Start: [address] COLONOGRAPHY [facility] Start: 2002 FECAL OCCULT BLOOD FECAL OCCULT BLOO D [facility] Start: 2002 Lipid 1996 panel - Serum or Plasma Lipid Screening [facility] Start: 2002 Lipid panel Lipid Screening [facility] Start: 2002 LIPID SCREEN LIPID SCREEN [facility] Start: 2002 Screening for malign ant neoplasm of colon [facility] Start: 2002 SIGMOIDOSCOPY SIGMOIDOSCOPY [facility] Start: 06-09-1987 HPV TESTING HPV TESTING [facility] Start: 1978 PAP TESTING PAP TESTING [facility] Start: 1976 SHINGRIX VACCINE (1 of 2) SHINGRIX VACCINE (1 of 2) [facility] Start: 1976 Urine microalbumin profile [facility] Start: 06-09-1975 Anxiety Screening Anxiety Screening [facility] Start: 06-09-1975 Depression Screening Depression Scre ening [facility] Start: 06-09-1975 HEPATITIS C SCREENING HEPATITIS C SC [facility] Start: 06-09-1975 Hepatitis C screening Hepatitis C Sc [facility] Start: 06-09-1975 HIV SCREENING HIV SCREENING [facility] Start: 06-09-1963 PNEUMOCOCCAL (1 - PCV) PNEUMOCOCCAL (1 - PCV) [facility] CBC W Auto Different ial panel - Blood [facility] CBC W Auto Different ial panel - Blood [facility] Colonoscopy [facility] Comprehensive metabo lic 2000 panel - Serum or Plasma [facility] DBT Breast - bilater al screening SJ SCREENING W PURVI Radiology Routine Personal history of breast cancer Encounter for screening mammogram for high-risk patient 09/26/2023 8:09 AM EDT [facility] Work Phone: End: 10-30-2024 DBT Breast - bilateral screening SJ SCREENING W PURVI Radiology Routine Personal history of breast cancer Encounter for screening mammogram for high-risk patient 1 Occurrences starting 10/01/2023 until 10/30/2024 [facility] Work Phone: Comment on above: 1 Occurrences starti ng 10/01/2023 until 10/30/2024 DBT Breast - bilater al screening SJ SCREENING W PURVI Radiology Routine Personal history of breast cancer Encounter for screening mammogram for high-risk patient 09/30/2024 8:39 AM EDT [facility] Work Phone: End: 12-18-2025 DBT Breast - bilateral screening SJ SCREENING W PUR[facility] Radiology Routine Encounter for screening mammogram for breast cancer 1 Occurrences starting 11/18/2024 until 12/18/2025 [facility] Work Phone: Comment on above: 1 Occurrences starti ng 11/18/2024 until 12/18/2025 DXA Bone [Mass/Area] Bone density [facility] Influenza virus A an d B RNA and SARS-CoV-2 (COVID-19) N gene panel - Respiratory specimen by KRYSTAL with probe detection COVID WITH FLUA+B, ROUTINE Microbiology Routine URI, acute Exposure to COVID-19 virus Ordered: 09/01/2021 [facility] Work Phone: Comment on above: Ordered: 09/01/2021 Lipid 1996 panel - Serum or Plasma [facility] Lipid 1995 panel - Serum or Plasma [facility] Patient Education ED Bronchitis with Wheezing (Adult) [facility] Work Phone: Patient referral [facility] Work Phone: SARS-CoV-2 (COVID-19 ) RNA [Presence] in Respiratory specimen by KRYSTAL with probe detection 2019 CORONAVIRUS Microbiology Routine Cough URI, acute Exposure to COVID-19 virus Ordered: 09/01/2021 [facility] Work Phone: Comment on above: Ordered: 09/01/2021 Vitamin D, 25-hydrox y measurement [facility] Vitamin D, 25-hydrox y measurement [facility] XR Chest PA and Lateral [facility] Immunizations Immunization Date Immunization Notes Care Provider [facility] 01-18-2025 Seasonal trivalent influenza vaccine, adjuvanted, preservative free Dr. Frantz Cotter MD Work Phone: [facility] 12-29-2023 influenza virus vacc ine, unspecified formulation Ana Griffiths POLICE INSPECTORDeseanP[employer]LET STONE INSERTER Work Phone: [facility] 09-30-2023 tetanus toxoid, redu doreen diphtheria toxoid, and acellular pertussis vaccine, adsorbed Dr. Frantz Cotter MD Work Phone: [facility] 12-20-2022 influenza, injectabl e, quadrivalent, preservative free Dr. Frantz Cotter Work Phone: [facility] 12-20-2022 Pneumococcal Vaccine PCV20 (Prevnar 20) Dr. Frantz Cotter Work Phone: [facility] 12-20-2022 influenza virus vacc ine, unspecified formulation Xr [place] Work Phone: [facility] 01-24-2022 influenza, injectabl e, quadrivalent, preservative free Dr. Frantz Cotter Work Phone: [facility] 01-24-2022 influenza virus vacc ine, unspecified formulation Screen Wstr [facility] 12-19-2021 Covid Pfizer Bivalen t Booster Dr. Frantz Cotter Work Phone: [facility] 07-13-2021 Covid (Moderna) Dr. Katy Cotter Work Phone: [facility] 02-06-2021 Covid (Moderna) Dr. Katy Cotter Work Phone: [facility] 07-12-2020 Covid (Moderna) Dr. aKty Cotter Work Phone: [facility] 06-14-2020 Covid (Moderna) Dr. Katy Cotter Work Phone: [facility] 12-10-2019 influenza, injectabl e, quadrivalent, preservative free Dr. Frantz Cotter Work Phone: [facility] 12-01-2018 influenza, injectabl e, quadrivalent, preservative free Dr. Frantz Cotter Work Phone: [facility] 12-01-2018 pneumococcal polysaccharide vaccine, [address] Frantz Cotter Work Phone: [facility] 04-16-[address] Frantz Cotter Work Phone: [facility] 02-10-[address] Frantz Cotter Work Phone: [facility] 01-29-2018 influenza, injectabl e, quadrivalent, preservative free Dr. Frantz Cotter Work Phone: [facility] 01-03-2017 influenza, injectabl e, quadrivalent, preservative free Dr. Frantz Cotter Work Phone: [facility] 01-04-2016 influenza, injectabl e, quadrivalent, preservative free Dr. Frantz Cotter Work Phone: [facility] 02-23-2015 influenza, injectabl e, quadrivalent, preservative free Dr. Frantz Cotter Work Phone: [facility] 02-17-2014 influenza, injectabl e, quadrivalent, preservative free Dr. Frantz Cotter Work Phone: [facility] 01-08-2013 influenza, injectabl e, quadrivalent, preservative free Dr. Frantz Cotter Work Phone: [facility] 01-17-2012 influenza, injectabl e, quadrivalent, preservative free Dr. Frantz Cotter Work Phone: [facility] 05-09-2009 novel influenza-H1N1 -09, preservative-free, injectable Dr. Frantz Cotter Work Phone: [facility] Payers Date Payer Category Payer Self-pay [id number] 2022 Medicare AETNA MEDICARE A ETNA MEDICARE PPO [id number] [phone] [address] [place] [address] PPO [id number] 2022 Medicare (Managed Care) [place] [id number] 2022 Private Health Insurance [facility] [id number] 2018 Unknown MMO MMO SUPERMED PLUS [id number] 2018-Present [phone] [address] [place] [address] PPO [id number] 2018 Unknown MMO MMO SUPERMED PPO [id number] 2018-2022 [address] [place] [address] PPO [id number] Medicare MEDICARE PART A B [id number] 2 [id number] Unknown [facility] [id number] Unknown [id number] Unknown [id number] Unknown [id number] 462 Unknown [id number] 462 Unknown [id number] 462 Unknown [id number] 462 Unknown [id number] 462 Unknown [id number] 462 Unknown [id number] 462 Unknown [id number] 462 Unknown [id number] 462 Unknown [id number] 462 Unknown [id number] 462 Unknown [id number] 462 Social History Date Type Detail Facility Start: 03-05-2012 End: 08-29-2023 Tobacco smoking status MOIS Never smoked tobacco [facility] Work Phone: Start: 03-05-2012 End: 04-09-2012 Tobacco use and exposure Smokeless tobacco non-user [facility] Work Phone: Start: 09-01-2021 End: 11-18-2024 Alcohol intake Current drinker of alcohol (finding) [facility] Start: 08-01-2015 History SDOH Alcohol Comment occasionally [facility] Start: 1955 Sex Assigned At Female [facility] Start: 08-22-2021 End: 05-28-2022 Exposure to SARS-CoV-2 (event) Yes [facility] Start: 09-07-2021 End: 09-17-2021 Exposure to SARS-CoV-2 (event) Not sure [facility] Start: 01-08-2013 End: 05-30-2023 Tobacco smoking status NHIS Unknown if ever smoked [facility] Start: 10-19-2021 End: 09-19-2022 History of Social function [facility] Start: 10-19-2021 End: 09-19-2022 Tobacco use panel [facility] Start: 03-08-2012 Adult Depression Screening Assessment 0 [facility] Start: 03-08-2020 Gender identity Identifies as female gender (finding) [facility] Start: 06-17-2024 Sex Female (finding) [facility] Functional Status Date Assessment Result Facility 10-24-2014 Are you deaf, or do you have serious difficulty hearing No 10/24/2014 8:37 AM EDErin Burns LPN No [facility] 10-24-2014 Are you blind, or do you have serious difficulty seeing, even when wearing glasses No 10/24/2014 8:37 AM EDT Erin Farrell LPN No [facility] 10-24-2014 Do you have serious difficulty walking or climbing stairs No 10/24/2014 8:37 AM FRIDAT Erin Farrell LPN No [facility] 10-24-2014 Do you have difficul ty dressing or bathing No 10/24/2014 8:37 AM EDT Erin Farrell LPN No [facility] 10-24-2014 Because of a physica l, mental, or emotional condition, do you have difficulty doing errands alone such as visiting a physician's office or shopping No 10/24/2014 8:37 AM FRIDAT Erin Farrell LPN No [facility] Mental Status Date Assessment Result Facility 10-24-2014 Because of a physica l, mental, or emotional condition, do you have serious difficulty concentrating, remembering, or making decisions Yes 10/24/2014 8:37 AM Erin Tolbert LPN Yes [facility] Clinical Notes 03-11-2012 to 01-18-2025 Note Date & Type Note Facility 10-14-2025 Progress note [facility] 12-02-2024 Evaluation note Diagnosis Onset Date Resolution Health care maintenance acute A ugust 2024 2:28pm Anxiety and depression chronic [place] 2024 2:28pm Asthma chronic December 02, 2 025 2:28pm GERD (gastroesophageal reflux disease) chronic December 02 2:28pm Hyperlipidemia chronic November 2:28pm Migraines chronic December 02, 2 025 2:28pm Osteopenia chronic December 02 025 2:28pm [facility] Work Phone: 1(984) 375-155208-14-2025 NoteHNO ID: [id number] Author: ELIZABETH HANDY APRN.[employer] Service: ? Author Type: Nurse Practitioner Type: Progress Notes Filed: 11/18/2024 08:32 Note Text: Willie is a 69 year old who presents for an annual gynecologic exam with complaints, vaginal dryness. Postmenopausal: yes age 57 HRT use: Yes, How lon year. HPV vaccine: No; Last pap smear: 04/07/2011 History of abnormal pap: No Last mammogram: 2024 normal History of abnormal mammogram: Yes h/o breast cancer Not sexually active due to dryness and pain OB History No obstetric history on file. Clay Puddler History LMP: 12/06/2004, Postmenopausal Age at Menarche: 18 Age at First : Age at Menopause: Clay Puddler History Comments: Sexual Activity: Not Currently; Male Contraception: No contraception data on record PAST MEDICAL HISTORY Diagnosis Date Hx of squamous cell carcinoma Malignant neoplasm of breast (female), unspecified site 04/07/2011 Breast cancer, RIGHT Migraine Mild asthma (HCC) Osteoporosis PAST SURGICAL HISTORY Procedure Laterality Date BX BREAST PERC NEED W/GUID 03/05/12 U/S needle core bx lower mid right breast BX BREAST PERC NEED W/GUID 03/14/12 U/S needle core bx second lesion lower mid right breast BX/EXC LYMPH NODE OPEN DEEP AXILLARY NODE 03-19-12 right MASTECTOMY, PARTIAL 03-19-12 right PAST SURGICAL HISTORY OF 1997 left breast lumpectomy-benign PAST SURGICAL HISTORY OF SCCA removal x3 PAST SURGICAL HISTORY OF 11/2010 ablation FAMILY HISTORY Problem Relation Age of Onset Cancer Maternal Grandmother bone Hypertension Mother other (paraplegia) Mother DVT Father other (hep c) Father other (chrohns) Daughter Breast Cancer Paternal Aunt Breast Cancer Other SOCIAL HISTORY Social History Tobacco Use Smoking status: Never Smokeless tobacco: Never Vaping Use Vaping status: Never Used Substance Use Topics Alcohol use: Yes Comment: occasionally Drug use: No REVIEW OF SYSTEMS Abdomen: No abdominal pain, nausea, vomiting, diarrhea, or constipation. No bloating, early satiety, indigestion, or increased flatulence. Bladder: No dysuria, gross hematuria, urinary frequency, urinary urgency, +stress incontinence Breast: No breast lumps, nipple d/c, overlying skin changes, redness or skin retraction Allergies and current medication updated:Yes SENSITIVE EXAM: The sensitive examination was discussed with the Patient or Patient's Authorized Associate Teacher. As applicable, any other physician, advance practice provider, medical student, or other health professional student that will be observing or involved in the sensitive examination for educational or training purposes was discussed with the Patient or Authorized Associate Teacher. The Patient or Authorized Associate Teacher has agreed to proceed with the sensitive examination. (Sensitive examination includes inspection and/or palpation of the breasts, pelvis, prostate and anorectal regions). EXAM: BP 128/84 Ht 5' 6 (1.68m) Wt 122 lb (55.3kg) LMP 12/06/2004 BMI 19.70 kg/(m2). GENERAL: pleasant, female in no apparent distress HEENT: Normocephalic, atraumatic, mucus membranes moist, and no lesions DERMATOLOGY: Normal, without lesions, non-icteric, and non-hirsute BREAST: soft, non-tender, no dominant mass, normal nipple-areolar complex, no lymphadenopathy, and no nipple discharge CHEST: Normal inspiratory effort ABDOMEN: soft, non-tender, and no masses PELVIC: external genitalia normal, normal Bartholin's glands, urethra, Tualatin's glands, no vulvar lesions, no cervical lesions, good vaginal support, physiologic discharge present, normal appearing perineal body and perianal region BIMANUAL: uterus normal size, shape and consistency, no adnexal masses, and non-tender RECTOVAGINAL: deferred. NEURO: alert and oriented x3,exam grossly non-focal EXTREMITIES: normal ASSESSMENT/PLAN: 1) Health maintenance: Pap/HPV screening no longer needed Mammogram ordered Mammogram up to date Nutrition, exercise and routine health maintenance exams reviewed. Calcium/Vitamin D supplementation information provided. Colon cancer screening: up to date with screening done 2023 BMD: up to date done 2023 @ [facility] 2) Follow up one year or sooner as needed Elizabeth Handy APRN.[facility]08-14-2025 History of Present illness Narrative* Elizabeth Handy APRN.[facility] - 11/18/2024 7:33 AM EDT Willie is a 69 year old who presents for an annual gynecologic exam with complaints, vaginal dryness. Postmenopausal: yes age 57 HRT use: Yes, How lon year. HPV vaccine: No; Last pap smear: 04/07/2011 History of abnormal pap: No Last mammogram: 2024 normal History of abnormal mammogram: Yes h/o breast cancer Not sexually active due to dryness and pain OB History No obstetric history on file. Clay Puddler History LMP: 12/06/2004, Postmenopausal Age at Menarche: 18 Age at First : Age at Menopause: Clay Puddler History Comments: Sexual Activity: Not Currently; Male Contraception: No contraception data on record PAST MEDICAL HISTORY Diagnosis Date Hx of squamous cell carcinoma Malignant neoplasm of breast (female), unspecified site 04/07/2011 Breast cancer, RIGHT Migraine Mild asthma (HCC) Osteoporosis PAST SURGICAL HISTORY Procedure Laterality Date BX BREAST PERC NEED W/GUID 03/05/12 U/S needle core bx lower mid right breast BX BREAST PERC NEED W/GUID 03/14/12 U/S needle core bx second lesion lower mid right breast BX/EXC LYMPH NODE OPEN DEEP AXILLARY NODE 03-19-12 right MASTECTOMY, PARTIAL 03-19-12 right PAST SURGICAL HISTORY OF 1997 left breast lumpectomy-benign PAST SURGICAL HISTORY OF SCCA removal x3 PAST SURGICAL HISTORY OF 11/2010 ablation FAMILY HISTORY Problem Relation Age of Onset Cancer Maternal Grandmother bone Hypertension Mother other (paraplegia) Mother DVT Father other (hep c) Father other (chrohns) Daughter Breast Cancer Paternal Aunt Breast Cancer Other SOCIAL HISTORY Social History Tobacco Use Smoking status: Never Smokeless tobacco: Never Vaping Use Vaping status: Never Used Substance Use Topics Alcohol use: Yes Comment: occasionally Drug use: No REVIEW OF SYSTEMS Abdomen: No abdominal pain, nausea, vomiting, diarrhea, or constipation. No bloating, early satiety, indigestion, or increased flatulence. Bladder: No dysuria, gross hematuria, urinary frequency, urinary urgency, +stress incontinence Breast: No breast lumps, nipple d/c, overlying skin changes, redness or skin retraction Allergies and current medication updated:Yes SENSITIVE EXAM: The sensitive examination was discussed with the Patient or Patient's Authorized Associate Teacher. As applicable, any other physician, advance practice provider, medical student, or other health professional student that will be observing or involved in the sensitive examination for educational or training purposes was discussed with the Patient or Authorized Associate Teacher. The Patient or Authorized Associate Teacher has agreed to proceed with the sensitive examination. (Sensitive examination includes inspection and/or palpation of the breasts, pelvis, prostate and anorectal regions). EXAM: BP 128/84 Ht 5' 6 (1.68m) Wt 122 lb (55.3kg) LMP 12/06/2004 BMI 19.70 kg/(m^2). GENERAL: pleasant, female in no apparent distress HEENT: Normocephalic, atraumatic, mucus membranes moist, and no lesions DERMATOLOGY: Normal, without lesions, non-icteric, and non-hirsute BREAST: soft, non-tender, no dominant mass, normal nipple-areolar complex, no lymphadenopathy, and no nipple discharge CHEST: Normal inspiratory effort ABDOMEN: soft, non-tender, and no masses PELVIC: external genitalia normal, normal Bartholin's glands, urethra, Tualatin's glands, no vulvar lesions, no cervical lesions, good vaginal support, physiologic discharge present, normal appearing perineal body and perianal region BIMANUAL: uterus normal size, shape and consistency, no adnexal masses, and non-tender RECTOVAGINAL: deferred. NEURO: alert and oriented x3,exam grossly non-focal EXTREMITIES: normal ASSESSMENT/PLAN: 1) Health maintenance: Pap/HPV screening no longer needed Mammogram ordered Mammogram up to date Nutrition, exercise and routine health maintenance exams reviewed. Calcium/Vitamin D supplementation information provided. Colon cancer screening: up to date with screening done 2023 BMD: up to date done 2023 @ [facility] 2) Follow up one year or sooner as needed Elizabeth Handy APRN.CNP documented [facility] NoteHNO ID: [id number] Author: ANA GRIFFITHS APRN.PALLET STONE INSERTER Service: ? Author Type: Nurse Practitioner Type: Progress Notes Filed: 10/06/2024 09:36 Note Text: Chief Complaint Patient presents with: Established Patient HPI: Willie Cobos is a 69 year old female who presents here today for follow up breast cancer. Per Dr. Ivey's previous note: H/o pt appreciated a mass on the underside of her right breast in the summer 2011. Underwent a biopsy of one of the lesions on 03/09/12. The pathologic review revealed invasive lobular carcinoma. Estrogen receptors were quantified at 70% and progesterone receptors were quantified at 72%. HER-2 was quantified at 2+. FISH testing was requested but the study was canceled because there was tissue loss during the procedure run despite 3 attempts. The patient underwent a biopsy of the second mass on 03/17/12. The pathologic review revealed invasive ductal carcinoma. Estrogen receptors and progesterone receptors were both quantified at greater than 95%. HER-2 was quantified at 2+ at the FISH testing revealed the specimen was nonamplified with a HER-2/nu to CEP 17 ratio 1.1-1. Underwent partial mastectomy with SLN biopsy 03/19. The pathology review revealed 2 foci of invasive carcinoma. The first was an invasive ductal carcinoma measuring 1.5 x 1.0 cm. The second was an invasive lobular carcinoma measuring 1.2 x 1.1 cm. The histologic grade was 2. All margins were negative in the invasive ductal carcinoma was 2.5 mm from the deep margin and invasive lobular carcinoma was 3.0 mm from the inferior margin. Both of these were the closest margins and were re-excised and were negative for malignancy. Lymphovascular invasion was not identified. Focal perineural invasion of both of the tumors was noted. One lymph node was retrieved and a sentinel node procedure and it was negative by histologic as well as immunohistochemistry analysis. Patient had been on an Estrogen patch up to the time of work up. PATHOLOGY: Oncotype DX testing showed that the one tumor was borderline between intermediate low risk and the second was in the intermediate risk category. Completed:TC/Neulasta Completed radiation October 14, 2012. Started arimidex after radiation. Stopped arimidex due to fatigue and joint pain early 2012. Changed to aromasin end of 2012. Changed to femara. Stopped 06/2013. Tamoxifen until stopped tamoxifen early September and has been off since d/t memory issues-forgetting things at work. She noted no difference in her memory-notes migraines/hot flashes worse while off of tamoxifen. Tamoxifen restarted and completed through 03/2018. No new concerns today. Appetite:Good. Wt. up 3# over past year. Energy level:Good. Denies fevers. Recent URI. Resp:denies cough or sob h/o asthma. Cardiac:denies chest pain/palpitations GI:denies abd pain, n/v, moving bowels regularly :denies dysuria/hematuria Extrem:denies pain currently, occ. joint pain Endo:+hot flashes-Stable Not a complete sweat through the night. Neuro:denies symptoms of neuropathy Skin:denies rashes/lesions Heme:denies bleeding The ROS is otherwise negative. Past medical history, appointments, medications, allergies reviewed. No changes. EXAM: BP 110/78 Pulse 66 Temp 36.9 ?C (98.4 ?F) (Temporal) Ht 167.6 cm (5' 6) Wt 56.3 kg (124 lb 1.9 oz) SpO2 98% BMI 20.03 kg/m? APPEARANCE Well appearing, alert, in no acute distress, well-hydrated, well nourished. HEART RRR with normal S1 and S2, no murmurs LUNG clear to auscultation BREAST FEMALE no mass/nodule b/l, R lower/outer surgical changes LYMPH NODES No cervical lymphadenopathy, No supraclavicular lymphadenopathy, and No axillary lymphadenopathy. ABDOMEN bowel sounds normoactive, soft, non-tender EXTREMITIES No edema NEURO Awake, alert and oriented x 3, Normal gait, and No involuntary motions. SKIN Skin color, texture, turgor normal, no suspicious rashes or lesions RADIOLOGY: Mammogram 09/30/24: IMPRESSION: There is no mammographic evidence of malignancy. Routine screening mammogram is recommended. Annual mammogram will be due in 1 year. BI-RADS Category 2: Benign ASSESSMENT/PLAN: 1. Encounter for follow-up surveillance of breast cancer - ICD9: V67.9, V10.3, ICD10: Z08, Z85.3 -pT1c (1.5 cm; grade 2; no AL invasion; focal perineural invasion) N0 (One of [address] negative) MX ER/CA positive; HER2 non-amplified invasive ductal carcinoma of the right breast. -pT1c (1.2 cm; no AL invasion; focal perineural invasion) N0 (One of 1 LN negative) MX ER/CA positive; HER2 2+ (FISH unable to be done on biopsy specimen) invasive lobular carcinoma of the right breast. S/p partial mastectomy with SLN biopsy 03/19/12. Completed:TC/Neulasta Completed radiation October 14, 2012. Started arimidex after radiation. Did not tolerate AI's. Off tamoxifen since 03/2018. - No concerning findings on exam. - (more content not included)...[facility]07-02-2025 History of Present illness Narrative* Ana Griffiths, RADHA.PALLET STONE INSERTER - 10/06/2024 8:45 AM EDT Chief Complaint Patient presents with: Established Patient HPI: Willie Cobos is a 69 year old female who presents here today for follow up breast cancer. Per Dr. Ivey's previous note: H/o pt appreciated a mass on the underside of her right breast in the summer 2011. Underwent a biopsy of one of the lesions on 03/09/12. The pathologic review revealed invasive lobular carcinoma. Estrogen receptors were quantified at 70% and progesterone receptors were quantified at72%. HER-2 was quantified at 2+. FISH testing was requested but the study was canceled because there was tissue loss during the procedure run despite 3 attempts. The patient underwent a biopsy of the second mass on 03/17/12. The pathologic review revealed invasive ductal carcinoma. Estrogen receptors and progesterone receptors were both quantified at greater than 95%. HER-2 was quantified at 2+ at the FISH testing revealed the specimen was nonamplified witha HER-2/nu to CEP 17 ratio 1.1-1. Underwent partial mastectomy with SLN biopsy 03/19. The pathology review revealed 2 foci of invasive carcinoma. The first was an invasive ductal carcinoma measuring 1.5 x 1.0 cm. The second was an invasive lobular carcinoma measuring 1.2 x 1.1 cm. The histologic grade was 2. All margins were negative in the invasive ductal carcinoma was 2.5 mm from the deep margin and invasive lobular carcinoma was 3.0 mm from the inferior margin. Both of these were the closest margins and were re-excised and were negative for malignancy. Lymphovascular invasion was not identified. Focal perineural invasion of both of the tumors was noted. One lymph node was retrieved and a sentinel node procedure and it was negative by histologic as well as immunohistochemistry analysis. Patient had been on an Estrogen patch up to the time of work up. PATHOLOGY: Oncotype DX testing showed that the one tumor was borderline between intermediate low risk and the second was in the intermediate risk category. Completed:TC/Neulasta Completed radiation October 14, 2012. Started arimidex after radiation. Stopped arimidex due to fatigue and joint pain early 2012. Changed to aromasin end of 2012. Changed to femara. Stopped 06/2013. Tamoxifen until stopped tamoxifen early September and has been off since d/t memory issues-forgetting things at work. She noted no difference in her memory-notes migraines/hot flashes worse while off of tamoxifen. Tamoxifen restarted and completed through 03/2018. No new concerns today. Appetite:Good. Wt. up 3# over past year. Energy level:Good. Denies fevers. Recent URI. Resp:denies cough or sob h/o asthma. Cardiac:denies chest pain/palpitations GI:denies abd pain, n/v, moving bowels regularly :denies dysuria/hematuria Extrem:denies pain currently, occ. joint pain Endo:+hot flashes-Stable Not a complete sweat through the night. Neuro:denies symptoms of neuropathy Skin:denies rashes/lesions Heme:denies bleeding The ROS is otherwise negative. Past medical history, appointments, medications, allergies reviewed. No changes. EXAM: BP 110/78 Pulse 66 Temp 36.9 C (98.4 F) (Temporal) Ht 167.6 cm (5' 6) Wt 56.3 kg (124 lb 1.9 oz) SpO2 98% BMI 20.03 kg/m APPEARANCE Well appearing, alert, in no acute distress, well-hydrated, well nourished. HEART RRR with normal S1 and S2, no murmurs LUNG clear to auscultation BREAST FEMALE no mass/nodule b/l, R lower/outer surgical changes LYMPH NODES No cervical lymphadenopathy, No supraclavicular lymphadenopathy, and No axillary lymphadenopathy. ABDOMEN bowel sounds normoactive, soft, non-tender EXTREMITIES No edema NEURO Awake, alert and oriented x 3, Normal gait, and No involuntary motions. SKIN Skin color, texture, turgor normal, no suspicious rashes or lesions RADIOLOGY: Mammogram 09/30/24: IMPRESSION: There is no mammographic evidence of malignancy. Routine screening mammogram is recommended. Annual mammogram will be due in 1 year. BI-RADS Category 2: Benign ASSESSMENT/PLAN: 1. Encounter for follow-up surveillance of breast cancer - ICD9: V67.9, V10.3, ICD10: Z08, Z85.3 -pT1c (1.5 cm; grade 2; no AL invasion; focal perineural invasion) N0 (One of 1 LN negative) MX ER/CA positive; HER2 non-amplified invasive ductal carcinoma of the right breast. -pT1c (1.2 cm; no AL invasion; focal perineural invasion) N0 (One of 1 LN negative) MX ER/CA positive; HER2 2+ (FISH unable to be done on biopsy specimen) invasive lobular carcinoma of the right breast. S/p partial mastectomy with SLN biopsy 03/19/12. Completed:TC/Neulasta Completed radiation October 14, 2012. Started arimidex after radiation. Did not tolerate AI's. Off tamoxifen since 03/2018. - No concerning findings on exam. - Pt. will be 12 years out from radiation October of this year. - Reviewed mammogram with pt. 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 care-needs yearly. - Mammogram due September 2025. - Follow up after mammogram. - Pt. aware to call office with any questions/concerns. The patient indicates understanding of these issues and agrees with the plan. All documentation from previous visit of 10/01/23-Dr. Ivey/myself was copied and pasted, documentation has been reviewed and edited as necessary for today's visit. Ana Griffiths APRN.DINORA documented in this encounter[facility]06-26-[facility]25 History of Present illness Narrative* Bindu Mejia, Mammo Tech - 09/30/2024 7:50 AM EDT Radiology Service Progress Note PATIENT NAME: Willie Cobos DATE OF SERVICE: September 30, 2024 TIME: 9:09 AM PATIENT IDENTITY VERIFICATION COMPLETED USING TWO (2) IDENTIFIERS: Name and Date of confirmedby patient verbally. FALL SCREENING: Has the patient had 2 falls in the last year or 1 fall with injury or currently using an Ambulatory Assistive Device (Walker, Cane, Wheelchair, Crutches, etc.)? No PATIENT GENDER DATA: Assigned female at . status: : No status:NO. PATIENT RELEVANT IMPLANT DATA REVIEWED: Not Applicable PATIENT PRESENTS WITH AN IMPLANTABLE OR ATTACHED CROWN ASSEMBLY MACHINE SET UP MECHANIC: No RADIOLOGY DEPARTMENT: Mammography PERIPHERAL IV DATA: Not applicable SIGNED BY: Jaleesa Mahajan September 30, 2024 9:09 AM documented in this encounterEast [facility]06-26-2025 NoteHNO ID: [id number] Author: BINDU MEJIA Mammo Tech Service: ? Author Type: Quality Control Microbiologist Type: Progress Notes Filed: 09/30/2024 09:10 Note Text: Radiology Service Progress Note PATIENT NAME: Willie Cobos DATE OF SERVICE: September 30, 2024 TIME: 9:09 AM PATIENT IDENTITY VERIFICATION COMPLETED USING TWO (2) IDENTIFIERS: Name and Date of confirmed by patient verbally. FALL SCREENING: Has the patient had 2 falls in the last year or 1 fall with injury or currently using an Ambulatory Assistive Device (Walker, Cane, Wheelchair, Crutches, etc.)? No PATIENT GENDER DATA: Assigned female at . status: : No status: NO. PATIENT RELEVANT IMPLANT DATA REVIEWED: Not Applicable PATIENT PRESENTS WITH AN IMPLANTABLE OR ATTACHED CROWN ASSEMBLY MACHINE SET UP MECHANIC: No RADIOLOGY DEPARTMENT: Mammography PERIPHERAL IV DATA: Not applicable SIGNED BY: Jaleesa Mahajan September 30, 2024 9:09 [facility]06-23-2025 Progress [facility] [address], [address] [place] [address] OFFICE VISIT Date of Service: 09/27/24 MR#: [id number] Acct: [id number] Name: HARRIETTKIMI HOODY Simeon Rep #: [id number] : 1955 Provider: ALEX Engel Age/Sex: 69/F Location: [facility] Status: Signed Intake Vital Signs 09/20/24 08:03 09/27/24 11:00 Height 5 ft 6 in Weight: 123 lb BMI 19.8 BP 136/90 H 116/80 Blood Pressure Location Lt brachial Position Sitting Sitting Respiration 18 16 Pulse 67 60 Pulse Source Monitor Temp 97.2 F L 98.2 F Temp Source Temporal Pulse Oximetry (%) 98 99 Oxygen Delivery Method room air room air Intake Visit Reasons: L FOOT MIDDLE TOE INJURY Accompanied by: Is patient in pain?: Yes Pain scale (1-10): 8 Allergies Penicillins Allergy (Mild, Verified 09/27/24 11:06) Rash Medications ?Medication ?Instructions ?Recorded ?Confirmed ?Type arm brace (MINDY Elbow Brace) #1 ea 07/12/22 09/27/24 Rx famotidine 10 mg tablet (Pepcid AC) 10 mg PO DAILY 10/2709/27/24 History inhalational spacing device #1 ea 01/18/23 09/27/24 Rx (BreatheRite MDI Spacer) calcium 600 mg (as 1 tab PO BID 11/28/23 History carbonate)-vitamin D3 20 mcg (800 unit) tablet citalopram 20 mg tablet 20 mg PO DAILY #90 tabs 07/0609/27/24 Rx sumatriptan succinate 50 mg tablet See Rx Instructions PO .COMPLEX 08/03/24 09/27/24 Rx #12 tabs dextromethorphan HBr 15 mg capsule 15 mg PO Q8H PRN co ugh #20 caps 09/06/24 09/27/24 Rx albuterol sulfate 90 mcg/actuation 2 puff inhalation Q 6H PRN 09/20/24 09/27/24 Rx aerosol inhaler (Ventolin HFA) shortness of breath or wheezing #8.5 grams Have you fallen in the past year?: No Nurse's Note: Patient hurt her Lt middle toe this morning. Patient states their was a bag on the floor with a strap and her toe caught the strap and pulled her middle toe away. Patient put ice on it right away. Patient states she can't put weight on it. [facility] Medical History (Updated 09/27/24 @ 11:15 by Alfie JOHNSON, PA) Displaced fracture of proximal phalanx of left lesser toe(s), initial encounter for closed fracture Bacterial sinusitis Localized swelling of left foot Throat pain Puncture wound of left index finger Wears glasses Post-menopausal Cancer Depression Anxiety Alcohol use History of steroid therapy Easy bruising Injury of head and neck Gastric reflux History of pain when walking History of stress test PAD (peripheral artery disease) GERD (gastroesophageal reflux disease) Blood pressure elevated without history of HTN Asthmatic bronchitis with acute exacerbation Acute sinusitis, unspecified Health care maintenance Anxiety and depression Migraines Right elbow pain Colon cancer screening Hyperlipidemia Vitamin deficiency Pneumonia Osteopenia History of hearing problem History of frequent headaches Hx of emotional problems Bronchitis Carpal tunnel syndrome History of skin cancer HX: breast cancer Hx of breast lump Asthma Arthritis Surgical History Hx of colonoscopy H/O lumpectomy Family History Uncle Myocardial infarction Grandfather Heart disease Father Hx of blood clots Aunt Breast cancer Mother Anesthesia complication Sister Anesthesia complication Daughter Crohn's disease Social History Smoking Status: Never smoker alcohol intake: current alcohol intake frequency: a few times a month substance use type: does not use what type of physical activity do you participate in: walking and yoga HPI HPI Details: WILLIE COBOS, is a 69 F who presents to the office today for [facility] evaluation at the [facility] status post left third toe injury occurring at homeearlier this morning. Patient notes getting thesame toe caught in a strap thatwas on the floor and hyper flexed her toe in the process no unremarkable swelling of the proximal aspect of the same toe ever since. Pain is aggravated to touch and with weightbearing, alleviated with sit/rest. No aobl-wns-ykanita products taken to assist. No other associated symptoms and no other alleviatingor aggravating factors. ROS Const Constitutional: No other (As above) Exam Const General: cooperative, healthy appearing and no acute distress Orientation: alert and awake Resp Effort & Inspection: normal respiratory effort and able to speak in complete sentences Cardio Rate: regular rate Pulses: radial pulses present Skin General: no rashes or lesions noted Neuro General: patient alert and patient awake Cognition: normal cognition Speech: speech normal Extrem General: capillary refill normal and normal exam except as noted (Except left third toe proximal phalanx ecchymosis/swelling) Psych Appearance: grossly normal Mental Status: mental status grossly normal Mood: congruent mood Affect: normal affect Speech and Movement: speech and movement normal Attitude: cooperative Coding Level of Care Code Off vis,est,level 3 Diagnoses Displaced fracture of proximal phalanx of left lesser toe(s), initial encounter for closed [id number] Assessment and Plan Assessment and Plan (1) Displaced fracture of proximal phalanx of left lesser toe(s), initial encounter for closed fracture: Status: Acute Plan: Left third toe x-rays today reveal a comminuted intra-articular fracture of the distal portion of the left third toe proximal phalanx per my review, with radiologist interpretation concurring. Shonna taping as instructed today, with patient declined postop shoe preferring to use hard soled sandal that she showed up with today. Rest, ice, elevate, shonna taping, NSAIDs as instructed today. Podiatry referral for first available appointment, ED sooner should symptoms only worsen or any other concerns develop. Patient states acknowledging understanding all the above. This note was generated with Fandium dictation software. It may contain incorrectwords, spelling, and punctuation that were not noted in checking the note beforesigning. Orders: Orders Toe(s) Min 2 Views Today M79.675 - Pain in left toe(s) Referrals Podiatry S92.512A - Displaced fracture of proximal phalanx of left lesser toe(s), initial encounterfor closed fracture Clinical Quality Measures Falls Risk Screening/Assistive Devices Have you fallen in the past year?: No 09/27/24 1125 s ALEX JOHNSON> Date _ Alfie JOHNSON Cosigner Signature: Date (if applicable) CC: ~ [facility]06-23-2025 Radiology Diagnostic study note [facility] Imaging Services [address] [address] Toe(s) Min 2 Views MR#: [id number] Acct: [id number] Name: WILLIE COBOS Rep #: [id number] : 1955 F 69 From: Raman Andrade MD PCP: Dr. Frantz Cotter MD Status: R EG CLI Study:Toe(s) Min 2 Views Date of Exam: 0 09/27/24 Exam# [id number] Ordering Dr: St graciela Balderas PROCEDURE: TOE(S) MIN 2 VIEWS 09/27/2024 REASON FOR EXAM: TOE PAIN TECHNIQUE: TOE(S) MIN 2 VIEWS COMPARISON: Three-view left 3rd toe RAD/Toe(s) Min 2 Views IMPRESSION: A comminuted intra-articular fracture of the distal portion of the left 3rd toe proximal phalanx isseen. No additional fracture site is evident. Reading Location: [place] [address] CC: Dr. Frantz Cotter MD; ALEX Engel ~ [employer] Restorer: Signed [facility]06-23-2025 Progress note Author Alfie Balderas [facility] Note Date/Time September 27, 2024 11:2 5am [facility] [address], [address] [place] [address] OFFICE VISIT Date of Service: 09/27/24 MR#: [id number] Acct: [id number] Name: WILLIE COBOS R Rep #: [id number] : 1955 Provider: ALEX Engel Age/Sex: 69/F Location: [facility] Status: Signed Intake Vital Signs 09/20/24 08:03 09/27/24 11:00 Height 5 ft 6 in Weight: 123 lb BMI 19.8 BP 136/90 H 116/80 Blood Pressure Location Lt brachial Position Sitting Sitting Respiration 18 16 Pulse 67 60 Pulse Source Monitor Temp 97.2 F L 98.2 F Temp Source Temporal Pulse Oximetry (%) 98 99 Oxygen Delivery Method room air room air Intake Visit Reasons: L FOOT MIDDLE TOE INJURY Accompanied by: Is patient in pain?: Yes Pain scale (1-10): 8 Allergies Penicillins Allergy (Mild, Verified 09/27/24 11:06) Rash Medications ?Medication ?Instructions ?Recorded ?Confirmed ?Type arm brace (MINDY Elbow Brace) #1 ea 07/12/22 09/27/24 Rx famotidine 10 mg tablet (Pepcid AC) 10 mg PO DAILY 10/2709/27/24 History inhalational spacing device #1 ea 01/18/23 09/27/24 Rx (BreatheRite MDI Spacer) calcium 600 mg (as 1 tab PO BID 11/28/23 History carbonate)-vitamin D3 20 mcg (800 unit) tablet citalopram 20 mg tablet 20 mg PO DAILY #90 tabs 07/0609/27/24 Rx sumatriptan succinate 50 mg tablet See Rx Instructions PO .COMPLEX 08/03/24 09/27/24 Rx #12 tabs dextromethorphan HBr 15 mg capsule 15 mg PO Q8H PRN co ugh #20 caps 09/06/24 09/27/24 Rx albuterol sulfate 90 mcg/actuation 2 puff inhalation Q 6H PRN 09/20/24 09/27/24 Rx aerosol inhaler (Ventolin HFA) shortness of breath or wheezing #8.5 grams Have you fallen in the past year?: No Nurse's Note: Patient hurt her Lt middle toe this morning. Patient states their was a bag on the floor with a strap and her toe caught the strap and pulled her middle toe away. Patient put ice on it right away. Patient states she can't put weight on it. [facility] Medical History (Updated 09/27/24 @ 11:15 by Alfie JOHNSON, PA) Displaced fracture of proximal phalanx of left lesser toe(s), initial encounter for closed fracture Bacterial sinusitis Localized swelling of left foot Throat pain Puncture wound of left index finger Wears glasses Post-menopausal Cancer Depression Anxiety Alcohol use History of steroid therapy Easy bruising Injury of head and neck Gastric reflux History of pain when walking History of stress test PAD (peripheral artery disease) GERD (gastroesophageal reflux disease) Blood pressure elevated without history of HTN Asthmatic bronchitis with acute exacerbation Acute sinusitis, unspecified Health care maintenance Anxiety and depression Migraines Right elbow pain Colon cancer screening Hyperlipidemia Vitamin deficiency Pneumonia Osteopenia History of hearing problem History of frequent headaches Hx of emotional problems Bronchitis Carpal tunnel syndrome History of skin cancer HX: breast cancer Hx of breast lump Asthma Arthritis Surgical History Hx of colonoscopy H/O lumpectomy Family History Uncle Myocardial infarction Grandfather Heart disease Father Hx of blood clots Aunt Breast cancer Mother Anesthesia complication Sister Anesthesia complication Daughter Crohn's disease Social History Smoking Status: Never smoker alcohol intake: current alcohol intake frequency: a few times a month substance use type: does not use what type of physical activity do you participate in: walking and yoga HPI HPI Details: WILLIE COBOS, is a 69 F who presents to the office today for initial evaluation at the [facility] status post left third toe injury occurring at [facility] this morning. Patient notes getting the same toe caught in a strap thatwas on the floor and hyper flexed her toe in the process no unremarkable swelling of the proximal aspect of the same toe ever since. Pain is aggravated to touch and with weightbearing, alleviated with sit/rest. No rgib-flb-kicemct products taken to assist. No other associated symptoms and no other alleviatingor aggravating factors. ROS Const Constitutional: No other (As above) Exam Const General: cooperative, healthy appearing and no acute distress Orientation: alert and awake Resp Effort & Inspection: normal respiratory effort and able to speak in complete sentences Cardio Rate: regular rate Pulses: radial pulses present Skin General: no rashes or lesions noted Neuro General: patient alert and patient awake Cognition: normal cognition Speech: speech normal Extrem General: capillary refill normal and normal exam except as noted (Except left third toe proximal phalanx ecchymosis/swelling) Psych Appearance: grossly normal Mental Status: mental status grossly normal Mood: congruent mood Affect: normal affect Speech and Movement: speech and movement normal Attitude: cooperative Coding Level of Care Code Off vis,est,level 3 Diagnoses Displaced fracture of proximal phalanx of left lesser toe(s), initial encounter for closed fracture S92.512A Assessment and Plan Assessment and Plan (1) Displaced fracture of proximal phalanx of left lesser toe(s), initial encounter for closed fracture: Status: Acute Plan: Left third toe x-rays today reveal a comminuted intra-articular fracture of the distal portion of the left third toe proximal phalanx per my review, with radiologist interpretation concurring. Shonna taping as instructed today, with patient declined postop shoe preferring to use hard soled sandal that she showed up with today. Rest, ice, elevate, shonna taping, NSAIDs as instructed today. Podiatry referral for first available appointment, ED sooner should symptoms only worsen or any other concerns develop. Patient states acknowledging understanding all the above. This note was generated with Fandium dictation software. It may contain incorrectwords, spelling, and punctuation that were not noted in checking the note beforesigning. Orders: Orders Toe(s) Min 2 Views Today M79.675 - Pain in left toe(s) Referrals Podiatry S92.512A - Displaced fracture of proximal phalanx of left lesser toe(s), initial encounter for closed fracture Clinical Quality Measures Falls Risk Screening/Assistive Devices Have you fallen in the past year?: No 09/27/24 3953 <Electronically signed by Alfie JOHNSON> Date _ Alfie JOHNSON Cosigner Signature: Date (if applicable) CC: ~ [facility] Work Phone: 1(593) 447-650006-16-2025 Evaluation note* Diagnosis Onset Date Resolution Status Admit Date Cough acute September 20 7:52am Asthma chronic September 20 7:52am Displaced fracture of proxim al phalanx of left lesser toe(s), initial encou acute September 27, 2024 10:13am [facility] Work Phone: 1(760) 368-680706-16-2025 Evaluation note* Diagnosis Onset Date Resolution Status Admit Date Cough acute September 20 7:52am Asthma chronic September 20 7:52am Displaced fracture of proxim al phalanx of left lesser toe(s), initial encou acute September 27, 2024 10:13am Health care maintenance acute A ugust 2024 2:28pm Anxiety and depression chronic [place] 2024 2:28pm Asthma chronic December 02, 2 025 2:28pm GERD (gastroesophageal reflu x disease) chronic December 02 2:28pm Hyperlipidemia chronic November 2:28pm Migraines chronic December 02, 2 025 2:28pm Osteopenia chronic December 02, 2 025 2:28pm [facility] Work Phone: 1([phone]) 408-780506-02-2025 Radiology Diagnostic study note [facility] Imaging Services [address] [place] [address] Chest PA and Lateral MR#: [id number] Acct: [id number] Name: WILLIE COBOS Rep #: [id number] : 1955 F 69 From: Beatriz Najera MD PCP: Dr. Frantz Cotter MD Status: R EG CLI Study:Chest PA and Lateral Date of Exam: 09/06/24 Exam# [id number] Ordering Dr: St graciela Balderas PA PA PROCEDURE: CHEST PA AND LATERAL 09/06/2024 REASON FOR EXAM: COUGH TECHNIQUE: Frontal and lateral views of the chest. COMPARISON: 01/18/2023 FINDINGS: No focal consolidations. No pleural effusion or pneumothorax. Cardiac silhouette is within normal limits. No acute fractures. RAD/Chest PA and Lateral IMPRESSION: No focal consolidation. Reading Location: [id number] CC: Dr. Frantz Cotter MD; ALEX Engel ~ [employer] Restorer: Signed [facility]06-02-2025 [facility] [address], [address] [place] [address] OFFICE VISIT Date of Service: 09/06/24 MR#: [id number] Acct: [id number] Name: WILLIE COBOS Rep #: [id number] : 1955 Provider: ALEX Engel Age/Sex: 69/F Location: [facility] Status: Signed Intake Vital Signs 07/02/24 09:00 09/06/24 16:25 Height 5 ft 6 in BP 128/80 H 122/80 H Blood Pressure Location Lt brachial Position Sitting Sitting Respiration 16 Pulse 76 Temp 98.9 F Temp Source Oral Pulse Oximetry (%) 98 Oxygen Delivery Method room air Intake Visit Reasons: COUGH X 3 DAYS Accompanied by: Self Allergies Penicillins Allergy (Mild, Verified 09/06/24 17:20) Rash Medications ?Medication ?Instructions ?Recorded ?Confirmed ?Type arm brace (MINDY Elbow Brace) #1 ea 07/12/22 09/06/24 Rx famotidine 10 mg tablet (Pepcid AC) 10 mg PO DAILY 10/2709/06/24 History inhalational spacing device #1 ea 01/18/23 09/06/24 Rx (BreatheRite MDI Spacer) calcium 600 mg (as 1 tab PO BID 11/28/23 History carbonate)-vitamin D3 20 mcg (800 unit) tablet albuterol 90 mcg-budesonide 80 2 inh inhalation ONCE P RN 06/14/24 09/06/24 Rx mcg/actuation HFA aerosol inhaler shortness of breath #10.7 grams (Airsupra) citalopram 20 mg tablet 20 mg PO DAILY #90 tabs 07/0609/06/24 Rx sumatriptan succinate 50 mg tablet See Rx Instructions PO .COMPLEX 08/03/24 09/06/24 Rx #12 tabs dextromethorphan HBr 15 mg capsule 15 mg PO Q8H PRN co ugh #20 caps 09/06/24 09/06/24 Rx doxycycline monohydrate 100 mg 100 mg PO BID #20 caps 09/06/24 09/06/24 Rx capsule methylprednisolone 4 mg tablets in See Rx Instructions PO PER PKG DIR 09/06/24 09/06/24 Rx a dose pack (Medrol (Stephon)) #21 tabs Have you fallen in the past year?: No Nurse's Note: Patient has a dry barky cough that has been going on for 3 days. Patient has been having to use herinhaler more. Patient states she was prescribed Dextromethorphan 15mg and they helped her a lot. [facility] Medical History Bacterial sinusitis Localized swelling of left foot Throat pain Puncture wound of left index finger Wears glasses Post-menopausal Cancer Depression Anxiety Alcohol use History of steroid therapy Easy bruising Injury of head and neck Gastric reflux History of pain when walking History of stress test PAD (peripheral artery disease) GERD (gastroesophageal reflux disease) Blood pressure elevated without history of HTN Asthmatic bronchitis with acute exacerbation Acute sinusitis, unspecified Health care maintenance Anxiety and depression Migraines Right elbow pain Colon cancer screening Hyperlipidemia Vitamin deficiency Pneumonia Osteopenia History of hearing problem History of frequent headaches Hx of emotional problems Bronchitis Carpal tunnel syndrome History of skin cancer HX: breast cancer Hx of breast lump Asthma Arthritis Surgical History Hx of colonoscopy H/O lumpectomy Family History Uncle Myocardial infarction Grandfather Heart disease Father Hx of blood clots Aunt Breast cancer Mother Anesthesia complication Sister Anesthesia complication Daughter Crohn's disease Social History Smoking Status: Never smoker alcohol intake: current alcohol intake frequency: a few times a month substance use type: does not use what type of physical activity do you participate in: walking and yoga HPI HPI Details: WILLIE COBOS, is a 69 F who presents to the office today for initial evaluation in the [facility] for approximately 3 day history of persistent fever, chills, cough, ANDERSON, myalgias, fatigue, congestion/ runny nose, nausea, anddiarrhea. Patient notes no complaints of chest pain or shortness of breath or dyspnea on exertion. Several close contacts recently dx?d w/ similar URI complaints, includingmar who was recently diagnosed with influenza pneumonia. No xmmo-pub-lrwakhu medications takento assist: Old prescription of dextromethorphan has been used to suppress her cough. No other associated symptoms and no other alleviating/aggravating factors. ROS Const Constitutional: No other (As above) Exam Const General: cooperative, healthy appearing and no acute distress Orientation: alert, awake and oriented x3 HENMT Head: normal to inspection Ears: hearing grossly normal bilaterally, external ears normal, TM's normal bilaterally and EAC's normal Nose: external nose normal, nares normal, septum normal and clear nasal discharge Face and sinus: normal facial exam, sinuses nontender and face symmetric Mouth: oral mucosae normal, lip normal, tongue normal and oropharynx normal Throat: posterior oropharynx normal, tonsils normal, uvula midline and no postnasal drainage Eyes General: appearance normal, both eyes and all related structures Neck Neck: normal visual inspection, full ROM, no lymphadenopathy, no meningeal signsand supple Neck mass: No Thyroid: thyroid normal Lymphatic: no lymphadenopathy noted Chest Chest palpation & inspection: normal inspection of the chest Resp Effort & Inspection: normal respiratory effort, able to speak in complete sentences and cough Quality of cough: dry (nonproductive in office today) Auscultation: Bilateral: Clear to Auscultation with rhonchi and upper airway partially clearing with cough Cardio Palpation: normal PMI Rate: Regular Rhythm: regular rhythm Heart Sounds: S1 normal, S2 normal, no gallops, no murmurs and no rubs Pulses: radial pulses present Skin General: no rashes or lesions noted Neuro General: patient alert, patient awake and patient oriented x3 Cognition: normal cognition Speech: speech normal Psych Appearance: grossly normal Mental Status: mental status grossly normal Mood: congruent mood Affect: normal affect Speech and Movement: speech and movement normal Attitude: cooperative Diagnoses Contact with or exposure to other viral diseases Z20.828 Acute bronchitis, unspecified J20.9 Assessment and Plan Assessment and Plan (1) Contact with or exposure to other viral diseases: Status: Acute (2) Acute bronchitis, unspecified: Status: Acute Plan: PA lateral chest x-ray revealed no acute cardiopulmonary pathology per my review, pending radiologist interpretation at the time patient discharge. See POC results. Doxycycline, Medrol and dextromethorphan as prescribed today. Supportive measures as instructed today. Follow-up with PCP in 3-5 days should symptoms not improve, ED sooner should symptoms worsen or anyother concerns develop. Pt states acknowledging understanding all the above. Results POC BABAK CoV-2 PCR POC BABAK CoV-2 PCR Not Detected Last Edit by Kiana Bal MA on 09/06/24 17 :37 POC FLU A & B Office Flu A&B Negative FLU A&B Last Edit by Kiana Bal MA on 09/06/24 17:37 Coding Level of Care Code Off vis,est,level 4 Assessment and Plan Assessment and Plan Orders: Orders Chest PA and Lateral Today R05.2 - Subacute cough POC FLU A & B Today R05.2 - Subacute cough POC Rapid BABAK Cov-2 PCR Today R05.2 - Subacute cough Medications: New doxycycline monohydrate 100 mg PO BID 20 caps 0RF methylprednisolone (Medrol (Stephon)) PO PER PKG DIR 21 tabs 0RF dextromethorphan HBr 15 mg PO Q8H PRN 20 caps 0RF cough Clinical Quality Measures Falls Risk Screening/Assistive Devices Have you fallen in the past year?: No 09/06/24 1738 s ALEX JOHNSON> Date _ Alfie JOHNSON Cosigner Signature: Date (if applicable) CC: ~ [facility]06-02-2025 Progress note Author Alfie Balderas [facility] Note Date/Time September 06, 2024 5:38p [facility] [address] , [address] [place], [place] [address] OFFICE VISIT Date of Service: 09/06/24 MR#: [id number] Acct: [id number] Name: WILLIE COBOS Rep #: [id number] : 1955 Provider: ALEX Engel Age/Sex: 69/F Location: [facility] Status: Signed Intake Vital Signs 07/02/24 09:00 09/06/24 16:25 Height 5 ft 6 in BP 128/80 H 122/80 H Blood Pressure Location Lt brachial Position Sitting Sitting Respiration 16 Pulse 76 Temp 98.9 F Temp Source Oral Pulse Oximetry (%) 98 Oxygen Delivery Method room air Intake Visit Reasons: COUGH X 3 DAYS Accompanied by: Self Allergies Penicillins Allergy (Mild, Verified 09/06/24 17:20) Rash Medications ?Medication ?Instructions ?Recorded ?Confirmed ?Type arm brace (MINDY Elbow Brace) #1 ea 07/12/22 09/06/24 Rx famotidine 10 mg tablet (Pepcid AC) 10 mg PO DAILY 10/2709/06/24 History inhalational spacing device #1 ea 01/18/23 09/06/24 Rx (BreatheRite MDI Spacer) calcium 600 mg (as 1 tab PO BID 11/28/23 History carbonate)-vitamin D3 20 mcg (800 unit) tablet albuterol 90 mcg-budesonide 80 2 inh inhalation ONCE P RN 06/14/24 09/06/24 Rx mcg/actuation HFA aerosol inhaler shortness of breath #10.7 grams (Airsupra) citalopram 20 mg tablet 20 mg PO DAILY #90 tabs 07/0609/06/24 Rx sumatriptan succinate 50 mg tablet See Rx Instructions PO .COMPLEX 08/03/24 09/06/24 Rx #12 tabs dextromethorphan HBr 15 mg capsule 15 mg PO Q8H PRN co ugh #20 caps 09/06/24 09/06/24 Rx doxycycline monohydrate 100 mg 100 mg PO BID #20 caps 09/06/24 09/06/24 Rx capsule methylprednisolone 4 mg tablets in See Rx Instructions PO PER PKG DIR 09/06/24 09/06/24 Rx a dose pack (Medrol (Stephon)) #21 tabs Have you fallen in the past year?: No Nurse's Note: Patient has a dry barky cough that has been going on for 3 days. Patient has been having to use her inhaler more. Patient states she was prescribed Dextromethorphan 15mg and they helped her a lot. [facility] Medical History Bacterial sinusitis Localized swelling of left foot Throat pain Puncture wound of left index finger Wears glasses Post-menopausal Cancer Depression Anxiety Alcohol use History of steroid therapy Easy bruising Injury of head and neck Gastric reflux History of pain when walking History of stress test PAD (peripheral artery disease) GERD (gastroesophageal reflux disease) Blood pressure elevated without history of HTN Asthmatic bronchitis with acute exacerbation Acute sinusitis, unspecified Health care maintenance Anxiety and depression Migraines Right elbow pain Colon cancer screening Hyperlipidemia Vitamin deficiency Pneumonia Osteopenia History of hearing problem History of frequent headaches Hx of emotional problems Bronchitis Carpal tunnel syndrome History of skin cancer HX: breast cancer Hx of breast lump Asthma Arthritis Surgical History Hx of colonoscopy H/O lumpectomy Family History Uncle Myocardial infarction Grandfather Heart disease Father Hx of blood clots Aunt Breast cancer Mother Anesthesia complication Sister Anesthesia complication Daughter Crohn's disease Social History Smoking Status: Never smoker alcohol intake: current alcohol intake frequency: a few times a month substance use type: does not use what type of physical activity do you participate in: walking and yoga HPI HPI Details: WILLIE COBOS, is a 69 F who presents to the office today for [facility] evaluation in the [facility] for approximately 3 day history of persistent fever, chills, cough, ANDERSON, myalgias, fatigue, congestion/ runny nose, nausea, anddiarrhea. Patient notes no complaints of chest pain or shortness of breath or dyspnea on exertion. Several close contacts recently dx?d w/ similar URI complaints, including grandson who was recently diagnosed with influenza pneumonia. No wkyx-hea-jusoedm medications taken to assist: Old prescription of dextromethorphan has been used to suppress her cough. No other associated symptoms and no other alleviating/aggravating factors. ROS Const Constitutional: No other (As above) Exam Const General: cooperative, healthy appearing and no acute distress Orientation: alert, awake and oriented x3 HENMT Head: normal to inspection Ears: hearing grossly normal bilaterally, external ears normal, TM's normal bilaterally and EAC's normal Nose: external nose normal, nares normal, septum normal and clear nasal discharge Face and sinus: normal facial exam, sinuses nontender and face symmetric Mouth: oral mucosae normal, lip normal, tongue normal and oropharynx normal Throat: posterior oropharynx normal, tonsils normal, uvula midline and no postnasal drainage Eyes General: appearance normal, both eyes and all related structures Neck Neck: normal visual inspection, full ROM, no lymphadenopathy, no meningeal signsand supple Neck mass: No Thyroid: thyroid normal Lymphatic: no lymphadenopathy noted Chest Chest palpation & inspection: normal inspection of the chest Resp Effort & Inspection: normal respiratory effort, able to speak in complete sentences and cough Quality of cough: dry (nonproductive in office today) Auscultation: Bilateral: Clear to Auscultation with rhonchi and upper airway partially clearing with cough Cardio Palpation: normal PMI Rate: Regular Rhythm: regular rhythm Heart Sounds: S1 normal, S2 normal, no gallops, no murmurs and no rubs Pulses: radial pulses present Skin General: no rashes or lesions noted Neuro General: patient alert, patient awake and patient oriented x3 Cognition: normal cognition Speech: speech normal Psych Appearance: grossly normal Mental Status: mental status grossly normal Mood: congruent mood Affect: normal affect Speech and Movement: speech and movement normal Attitude: cooperative Diagnoses Contact with or exposure to other viral diseases Z20.828 Acute bronchitis, unspecified J20.9 Assessment and Plan Assessment and Plan (1) Contact with or exposure to other viral diseases: Status: Acute (2) Acute bronchitis, unspecified: Status: Acute Plan: PA lateral chest x-ray revealed no acute cardiopulmonary pathology per my review, pending radiologist interpretation at the time patient discharge. See POC results. Doxycycline, Medrol and dextromethorphan as prescribed today. Supportive measures as instructed today. Follow-up with PCP in 3-5 days should symptoms not improve, ED sooner should symptoms worsen or any other concerns develop. Pt states acknowledging understanding all the above. Results POC BABAK CoV-2 PCR POC BABAK CoV-2 PCR Not Detected Last Edit by Kiana Bal MA on 09/06/24 17 :37 POC FLU A & B Office Flu A&B Negative FLU A&B Last Edit by Kiana Bal MA on 09/06/24 17:37 Coding Level of Care Code Off vis,est,level 4 Assessment and Plan Assessment and Plan Orders: Orders Chest PA and Lateral Today R05.2 - Subacute cough POC FLU A & B Today R05.2 - Subacute cough POC Rapid BABAK Cov-2 PCR Today R05.2 - Subacute cough Medications: New doxycycline monohydrate 100 mg PO BID 20 caps 0RF methylprednisolone (Medrol (Stephon)) PO PER PKG DIR 21 tabs 0RF dextromethorphan HBr 15 mg PO Q8H PRN 20 caps 0RF cough Clinical Quality Measures Falls Risk Screening/Assistive Devices Have you fallen in the past year?: No 09/06/24 1738 <Electronically signed by Alfie JOHNSON> Date _ Alfie JOHNSON Cosigner Signature: Date (if applicable) CC: ~ [facility] Work Phone: 1(225) 964-227002-28-2025 Evaluation note* Diagnosis Onset Date Resolution Status Admit Date Blood pressure elevated with out history of HTN acute June 04 10:40am Health care maintenance acute [facility] 2024 10:40am Anxiety and depression chronic 2024 10:40am Hyperlipidemia chronic May 092024 10:40am Migraines chronic June 04, 2024 10:40am Bacterial sinusitis acute June 09, 2024 9:05am [facility] Work Phone: 1(453) 878-466702-28-2025 Evaluation note* Diagnosis Onset Date Resolution Status Admit Date Blood pressure elevated with out history of HTN acute June 04 10:40am Health care maintenance acute [facility] 2024 10:40am Anxiety and depression chronic [facility] 2024 10:40am Hyperlipidemia chronic May 092024 10:40am Migraines chronic June 04, 2024 10:40am Bacterial sinusitis acute June 09, 2024 9:05am Cough acute June 25 8:19am [facility] Work Phone: 1(795) 493-610502-28-2025 Evaluation note* Diagnosis Onset Date Resolution Status Admit Date Blood pressure elevated with out history of HTN acute June 04, 025 10:40am Health care maintenance acute F [place] 2024 10:40am Anxiety and depression chronic [place] 2024 10:40am Hyperlipidemia chronic May 092024 10:40am Migraines chronic June 04, 2024 10:40am Bacterial sinusitis acute June 09, 2024 9:05am Cough acute June 25 8:19am Cough acute September 20 7:52am Asthma chronic September 20 7:52am Displaced fracture of proxim al phalanx of left lesser toe(s), initial encou acute September 27, 2024 10:13am Taylor [facility] Work Phone: 1(364) 205-730806-26-2024 History of Present illness Narrative* Ana Griffiths APRN.[employer] - 10/01/2023 8:14 AM EDT Chief Complaint Patient presents with: Established Patient HPI: Willie Cobos is a 68 year old female who presents here today for follow up breast cancer. Per Dr. Ivey's previous note: H/o pt appreciated a mass on the underside of her right breast in the summer 2011. Underwent a biopsy of one of the lesions on 03/09/12. The pathologic review revealed invasive lobular carcinoma. Estrogen receptors were quantified at 70% and progesterone receptors were quantified at72%. HER-2 was quantified at 2+. FISH testing was requested but the study was canceled because there was tissue loss during the procedure run despite 3 attempts. The patient underwent a biopsy of the second mass on 03/17/12. The pathologic review revealed invasive ductal carcinoma. Estrogen receptors and progesterone receptors were both quantified at greater than 95%. HER-2 was quantified at 2+ at the FISH testing revealed the specimen was nonamplified witha HER-2/nu to CEP 17 ratio 1.1-1. Underwent partial mastectomy with SLN biopsy 03/19. The pathology review revealed 2 foci of invasive carcinoma. The first was an invasive ductal carcinoma measuring 1.5 x 1.0 cm. The second was an invasive lobular carcinoma measuring 1.2 x 1.1 cm. The histologic grade was 2. All margins were negative in the invasive ductal carcinoma was 2.5 mm from the deep margin and invasive lobular carcinoma was 3.0 mm from the inferior margin. Both of these were the closest margins and were re-excised and were negative for malignancy. Lymphovascular invasion was not identified. Focal perineural invasion of both of the tumors was noted. One lymph node was retrieved and a sentinel node procedure and it was negative by histologic as well as immunohistochemistry analysis. Patient had been on an Estrogen patch up to the time of work up. PATHOLOGY: Oncotype DX testing showed that the one tumor was borderline between intermediate low risk and the second was in the intermediate risk category. Completed:TC/Neulasta Completed radiation October 14, 2012. Started arimidex after radiation. Stopped arimidex due to fatigue and joint pain early 2012. Changed to aromasin end of 2012. Changed to femara. Stopped 06/2013. Tamoxifen until stopped tamoxifen early September and has been off since d/t memory issues-forgetting things at work. She noted no difference in her memory-notes migraines/hot flashes worse while off of tamoxifen. Tamoxifen restarted and completed through 03/2018. No new concerns today. Appetite:Good. Energy level:Good. Denies fevers or recent illness. Resp:denies cough or sob Cardiac:denies chest pain/palpitations GI:denies abd pain, n/v, moving bowels regularly :denies dysuria/hematuria Extrem:denies pain currently, occ. joint pain Endo:+hot flashes-Stable It's hard to tell with the heat. Neuro:denies symptoms of neuropathy Skin:denies rashes/lesions Heme:denies bleeding The ROS is otherwise negative. Past medical history, appointments, medications, allergies reviewed. No changes. EXAM: BP 143/89 Pulse 67 Temp 36.2 C (97.2 F) (Temporal) Wt 55.2 kg (121 lb 11.2 oz) SpO2 99% BMI 19.94 kg/m APPEARANCE Well appearing, alert, in no acute distress, well-hydrated, well nourished. HEART RRR with normal S1 and S2, no murmurs LUNG clear to auscultation BREAST FEMALE no mass/nodule b/l, scar to R lower/L upper/outer, R radiation changes LYMPH NODES No cervical lymphadenopathy, No supraclavicular lymphadenopathy, and No axillary lymphadenopathy. ABDOMEN bowel sounds normoactive, soft, non-tender EXTREMITIES No edema NEURO Awake, alert and oriented x 3, Normal gait, and No involuntary motions. SKIN Skin color, texture, turgor normal, no suspicious rashes or lesions RADIOLOGY: Mammogram 09/26/23: IMPRESSION: BENIGN FINDING There is no mammographic evidence of malignancy. A 1 year screening mammogram is recommended. The exam was reviewed by a staff physician. ASSESSMENT/PLAN: 1. Personal history of breast cancer - ICD9: V10.3, ICD10: Z85.3 (primary diagnosis) -pT1c (1.5 cm; grade 2; no AL invasion; focal perineural invasion) N0 (One of 1 LN negative) MX ER/CA positive; HER2 non-amplified invasive ductal carcinoma of the right breast. -pT1c (1.2 cm; no AL invasion; focal perineural invasion) N0 (One of 1 LN negative) MX ER/CA positive; HER2 2+ (FISH unable to be done on biopsy specimen) invasive lobular carcinoma of the right breast. S/p partial mastectomy with SLN biopsy 03/19/12. Completed:TC/Neulasta Completed radiation October 14, 2012. Started arimidex after radiation. Did not tolerate AI's. Off tamoxifen since 03/2018. - No concerning findings on exam. - Pt. will be 11 years out from radiation October of this year. - Reviewed mammogram with pt. - Mammogram due September 2024. - Follow up after mammogram. - Pt. aware to call office with any questions/concerns. The patient indicates understanding of these issues and agrees with the plan. All documentation from previous visit of 09/26/22-Dr. Ivey/myself was copied and pasted, documentation has been reviewed and edited as necessary for today's visit. Ana Griffiths APRN.P[employer]LET [employer] INSERTER [facility]* Letter - Coordinator, Mammography - 09/26/2023 10:58 AM EDT September 29, 2023 PID: [id number] Willie Cobos [address] [place] [address] Dear Ms. Cobos, We are pleased to inform you that the results of your recent breast imaging exam on 09/26/2023 are normal. Your mammogram demonstrates that you have dense breast tissue, which could hide abnormalities. Dense breast tissue, in and of itself, is a relatively common condition. Therefore, this information is not provided to cause undue concern; rather, it is to raise your awareness and promote discussion with your health care provider regarding the presence of dense breast tissue in addition to other riskfactors. Early detection of cancer is very important. We also understand recommendations regarding breast cancer screening are controversial. Please discuss with your primary care provider which strategy is best for you and whether a mammogram is right for you. Your imaging studies and report will be kept on file at [facility] as part of your permanent medical record and are available for your continuing care. Thank you for allowing us to help in meeting your health care needs. Sincerely, Dr. Mae Interpreting Radiologist (Normal over 40) [facility]-21-[facility] Miscellaneous Notes* Letter - Coordinator, Mammography - 09/26/2023 10:58 AM EDT September 29, 2023 PID: [id number] Willie [address] [place] [address] Dear Ms. Cobos, We are pleased to inform you that the results of your recent breast imaging exam on 09/26/2023 are normal. Your mammogram demonstrates that you have dense breast tissue, which could hide abnormalities. Dense breast tissue, in and of itself, is a relatively common condition. Therefore, this information is not provided to cause undue concern; rather, it is to raise your awareness and promote discussion with your health care provider regarding the presence of dense breast tissue in addition to other riskfactors. Early detection of cancer is very important. We also understand recommendations regarding breast cancer screening are controversial. Please discuss with your primary care provider which strategy is best for you and whether a mammogram is right for you. Your imaging studies and report will be [facility] as part of your permanent medical record and are available for your continuing care. Thank you for allowing us to help in meeting your health care needs. Sincerely, Dr. Mae Interpreting Radiologist (Normal over 40) documented in this encounter[facility]06-[facility]24 History of Present illness Narrative* Lynette Bentley RT(R) - 09/26/2023 7:30 AM EDT Radiology Service Progress Note PATIENT NAME: Willie Cobos DATE OF SERVICE: September 26, 2023 TIME: 7:32 AM PATIENT IDENTITY VERIFICATION COMPLETED USING TWO (2) IDENTIFIERS: Name and Date of confirmedby patient verbally. FALL SCREENING: Has the patient had 2 falls in the last year or 1 fall with injury or currently using an Ambulatory Assistive Device (Walker, Cane, Wheelchair, Crutches, etc.)? No PATIENT GENDER DATA: Female. status: : No status: NO. PATIENT RELEVANT IMPLANT DATA REVIEWED: Not Applicable PATIENT PRESENTS WITH AN IMPLANTABLE OR ATTACHED CROWN ASSEMBLY MACHINE SET UP MECHANIC: No RADIOLOGY DEPARTMENT: Mammography PERIPHERAL IV DATA: Not applicable SIGNED BY: RT Ismael(R) September 26, 2023 7:32 AM documented in this [facility] [facility]06-15-2023 Miscellaneous Notes* Letter - Mammography Coordinator - 09/19/2022 11:04 AM EDT September 20, 2022 PID: [id number] Willie [address] [place] [address] Dear Ms. Cobos, We are pleased to inform you that the results of your recent breast imaging exam on 09/19/2022 are normal. Your mammogram demonstrates that you have dense breast tissue, which could hide abnormalities. Dense breast tissue, in and of itself, is a relatively common condition. Therefore, this information is not provided to cause undue concern; rather, it is to raise your awareness and promote discussion with your health care provider regarding the presence of dense breast tissue in addition to other riskfactors. Early detection of cancer is very important. We also understand recommendations regarding breast cancer screening are controversial. Please discuss with your primary care provider which strategy is best for you and whether a mammogram is right for you. Your imaging studies and report will be [facility] as part of your permanent medical record and are available for your continuing care. Thank you for allowing us to help in meeting your health care needs. Sincerely, Dr. Cooper Interpreting Radiologist (Normal over 40) documented in this [facility]06-[facility]23 History of Present illness Narrative* Lynette Bentley RT(R) - 09/19/2022 8:30 AM EDT Radiology Service Progress Note PATIENT NAME: Willie Cobos DATE OF SERVICE: September 19, 2022 TIME: 8:38 AM PATIENT IDENTITY VERIFICATION COMPLETED USING TWO (2) IDENTIFIERS: Name and Date of confirmedby patient verbally. FALL SCREENING: Has the patient had 2 falls in the last year or 1 fall with injury or currently using an Ambulatory Assistive Device (Walker, Cane, Wheelchair, Crutches, etc.)? No PATIENT GENDER DATA: Female. status: : No status: NO. PATIENT RELEVANT IMPLANT DATA REVIEWED: Not Applicable RADIOLOGY DEPARTMENT: Mammography PERIPHERAL IV DATA: Not applicable SIGNED BY: DOMINICK Guevara) September 19, 2022 8:38 AM documented in this [facility]11-21-[facility]22 History of Present illness Narrative* Linda Rodriguez RT(R) - 02/25/2022 8:40 AM EST RADIOLOGY SERVICE PROGRESS NOTE DATE OF SERVICE: February 25, 2022 TIME OF SERVICE: 8:40 am EVENT: EXAM/PROCEDURE NOT COMPLETED - Patient became claustrophobic, reaction was: Moderate. ADDITIONAL EVENT DETAILS: N/A SIGNATURE: RT Serenity(R) PATIENT NAME: Willie Cobos DATE: February 25, 2022 TIME: 9:59 AM PAGER/CONTACT #: documented in this [facility]06-13-2022 Miscellaneous Notes* Telephone Encounter - Amy Nunez LPN - 09/17/2021 10:14 AM EDT Mychart message sent. Pt has f/u here this . Amy Nunez LPN * Telephone Encounter - Ana Griffiths APRN.DINORA - 09/17/2021 10:00 AM EDT Please inform pt. that her mammogram looks good. Follow up as scheduled. Thank you. Ana Griffiths APRN.DINORA documented in this [facility]06-[facility] Miscellaneous Notes* Telephone Encounter - Amy Nunez LPN - 09/17/2021 10:13 AM EDT My chart message sent. Pt has apt this . Amy Nunez LPN documented in this [facility]05-28-[facility] History of Present illness Narrative* Ariel Helms APRN.DINORA - 09/01/2021 10:18 AM EDT Subjective HPI HPI Willie Cobos is a 66 year old female who presents today for CC of cough, congestion, runnynose, body aches, chills, sob. This started . Has tried 2 days ago. Symptoms are worsened by nothing. Risk factors hx of asthma. Denies cp, n/v/d, ear pain. .Patient presents with: Covid19 Concern: exposure x2 days, ST, cough, chills, runny nose, body aches x last night PAST MEDICAL HISTORY Diagnosis Date Hx of squamous cell carcinoma Malignant neoplasm of breast (female), unspecified site 2011 Breast cancer, RIGHT Migraine PAST SURGICAL HISTORY Procedure Laterality Date BX BREAST PERC NEED W/GUID 03/05/12 U/S needle core bx lower mid right breast BX BREAST PERC NEED W/GUID 03/14/12 U/S needle core bx second lesion lower mid right breast BX/EXC LYMPH NODE OPEN DEEP AXILLARY NODE 03-19-12 right MASTECTOMY, PARTIAL 03-19-12 right PAST SURGICAL HISTORY OF 1997 left breast lumpectomy-benign PAST SURGICAL HISTORY OF [facility] removal x3 PAST SURGICAL HISTORY OF 11/2010 ablation ALLERGIES Penicillins MEDICATIONS cholecalciferol, vitamin D3, (VITAMIN D3 ORAL) Take 1 tablet by mouth once daily. PAPAYA ENZYME ORAL Take 3 tablets by mouth after each meal as needed. citalopram (CELEXA) 20 mg tablet Take 20 mg by mouth once daily. SUMAtriptan 50 mg tablet Take 50 mg by mouth as needed. ALBUTEROL INHALATION Inhale 2 Puffs as instructed as needed. predniSONE (DELTASONE) 20 mg tablet Take 2 tablets by mouth once daily for 5 days. FAMILY HISTORY Problem Relation Age of Onset Cancer Maternal Grandmother bone Hypertension Mother other (paraplegia) Mother DVT Father other (hep c) Father other (chrohns) Daughter Breast Cancer Paternal Aunt Breast Cancer Other Social History Tobacco Use Smoking status: Never Smoker Smokeless tobacco: Never Used Vaping Use Vaping Use: Never used Substance Use Topics Alcohol use: Yes Comment: occasionally Drug use: No ROS Objective Blood pressure 120/76, pulse 74, temperature 36.9 C (98.4 F), resp. rate 20, weight 57 kg (125 lb 9.6 oz), SpO2 97 %. Physical Exam Constitutional: General: She is not in acute distress. Appearance: She is not toxic-appearing or diaphoretic. HENT: Head: Normocephalic and atraumatic. Cardiovascular: Rate and Rhythm: Normal rate and regular rhythm. Heart sounds: Normal heart sounds, S1 normal and S2 normal. Pulmonary: Effort: Pulmonary effort is normal. Breath sounds: Wheezing (fine, scattered bilat) present. No decreased breath sounds, rhonchi or rales. Lymphadenopathy: Cervical: No cervical adenopathy. Right cervical: No superficial cervical adenopathy. Left cervical: No superficial cervical adenopathy. Neurological: Mental Status: She is alert and oriented to person, place, and time. Gait: Gait is intact. ASSESSMENT/PLAN: 1. URI, acute - ICD9: 465.9, ICD10: J06.9 (primary diagnosis) 2 days of symptoms, vs normal, cxr normal. - Discussed viral etiology and rationale for treatment. - Symptomatic treatment with prn analgesia - Supportive care with fluids and rest - Follow up in 3-5 days if symptoms persist or sooner if worsening of symptoms - 2019 CORONAVIRUS - PREDNISONE 20 MG TABLET 2. Cough - ICD9: 786.2, ICD10: R05.9 xr negative - XR CHEST 2V FRONTAL/LAT - 2019 CORONAVIRUS 3. Exposure to COVID-19 virus - ICD9: V01.79, ICD10: Z20.822 Discussed quarantine, social distancing otc medications discussed Push fluids -If you experience chest pain/shortness of breath go to ER - 2019 CORONAVIRUS 4. History of asthma - ICD9: V12.69, ICD10: Z87.09 Steroid ordered Continue inhalers -If you experience chest pain/shortness of breath go to ER - PREDNISONE 20 MG TABLET Agrees to plan Ariel Helms APRN.CNP documented in this [facility]-28-[facility]22 Instructions* Patient Instructions* Ariel Helms APRN.CNP - 09/01/2021 9:55 AM EDT How to Manage Common Symptoms Associated with COVID for Adults Fever- Fever is a temperature over 100.4 F and can occur when the body is fighting an infection. Tohelp treat a fever: Drink plenty of fluids and stay well hydrated. Eat small amounts of easy to digest food. Rest. Your body needs rest to recover, but getting up and moving around the house frequently is a good idea. You should try to continue doing your normal daily activities (bathing, toileting, grooming, cooking), though you will probably feel tired, and need to rest often. Avoid any heavy activity or exercise, as this will increase your body temperature. Dress in light clothing and stay covered in a light sheet. Keep the room temperature cool. Take a slightly warm (not cold or cool) bath, or apply damp washcloths to the forehead and wrists. Cough- Cough is a common symptom associated with COVID and can be bothersome. To help treat a cough: Stay well hydrated. Try warm water or tea with lemon and/or honey to help soothe the cough. Use a humidifier to add moisture to the air. Try a product with menthol, like a cough drop or a rub for your chest such as Vicks, which can helpreduce cough. Try cough drops. Avoid smoking and other strong odors or perfumes. Try breathing exercises to keep your lungs open and clear. Take a big deep breath through your noseand hold for 5 seconds before slowly releasing. Repeat frequently, while you are awake. Congestion- Runny nose or nasal congestion can occur with COVID. Treatment can help relieve symptoms: Try OTC nasal saline spray, or nasal saline rinse to relieve mucus congestion. Nasal strips can help keep nasal passages open, to increase airflow. Elevating your head with an extra pillow in bed can help reduce congestion. Using a humidifier can increase moisture in the air, and make breathing easier. Sore Throat- Another common symptom with COVID, can be managed at home by: Stay well hydrated. Gargle with salt water mix teaspoon salt with 1 cup of warm water and gargle. This helps to loosen mucus in the back of the throat and may reduce discomfort. Try ice chips, popsicles or lozenges to soothe the throat. Nausea/Vomiting/Diarrhea- These are common symptoms, and staying hydrated is most important. If you are nauseous or vomiting, start with small sips of water every 10-15 minutes and increase astolerated. You can try sucking an ice cube too. If tolerating, you can try pedialyte or Gatorade, or flat sprite or saba-roberto. Start slowly and increase as you are able to. Instead of meals, try smaller, more frequent snacks. Try eating bland foods like crackers, toast, rice, and applesauce. Avoid spicy, greasy or fried foods and dairy containing foods. Even if you aren't feeling hungry due to lack of smell or taste, it is important to try to take in some food when you are able. After drinking and eating, rest in an upright position for up to two hours as needed to help decrease nauseous feelings. Try closing your eyes, avoid moving and watching TV. Avoid strong odors that can make you feel more nauseated. When to seek emergency medical attention Look for emergency warning signs for COVID-19. If having any of these symptoms, seek emergency medical care immediately: Trouble breathing Persistent pain or pressure in the chest New confusion Inability to wake or stay awake Bluish lips or face *This list is not all possible symptoms. Please call your medical provider for any other symptoms that are severe or concerning to you. documented in this [facility]05-28-[facility]22 History of Present illness Narrative* Raquel Carvajal RT(R) - 09/01/2021 9:30 AM EDT Radiology Service Progress Note PATIENT NAME: Willie Cobos DATE OF SERVICE: September 01, 2021 TIME: 9:37 AM PATIENT IDENTITY VERIFICATION COMPLETED USING TWO (2) IDENTIFIERS: Name and Date of confirmedby patient verbally. FALL SCREENING: Has the patient had 2 falls in the last year or 1 fall with injury or currently using an Ambulatory Assistive Device (Walker, Cane, Wheelchair, Crutches, etc.)? No PATIENT GENDER DATA: Female. status: : No status: NO. PATIENT RELEVANT IMPLANT DATA REVIEWED: Yes RADIOLOGY DEPARTMENT: General X-ray: Exam(s) Completed: Chest X-Ray PERIPHERAL IV DATA: Not applicable SIGNED BY: RT Sandy(R) September 01, 2021 9:37 AM documented in this [facility]12-[facility] History of Past illness Narrative* Problem Noted Date Resolved Date Breast cancer 03/11/2012 02/10/2017 documented as of this encounter (statuses as of 09/01/2021) [facility] of Past illness Narrative* Problem Noted Date Resolved Date Breast cancer 03/11/2012 02/10/2017 documented as of this encounter (statuses as of 09/17/2021) [facility] of Past illness Narrative* Problem Noted Date Resolved Date Breast cancer 03/11/2012 02/10/2017 documented as of this encounter (statuses as of 09/17/2021) [facility] of Past illness Narrative* Problem Noted Date Resolved Date Breast cancer 03/11/2012 02/10/2017 documented as of this encounter (statuses as of 09/18/2021) [facility] of [facility] illness Narrative* Problem Noted Date Resolved Date Breast cancer 03/11/2012 02/10/2017 documented as of this encounter (statuses as of 09/24/2022) [facility] of [facility] illness Narrative* Problem Noted Date Diagnosed Date Resolved Date Breast cancer 03/11/2012 02/10/2017 documented as of this encounter (statuses as of 02/09/2023) [place] [id number] History of Past illness Narrative* Problem Noted Date Diagnosed Date Resolved Date Breast cancer 03/11/2012 02/10/2017 documented as of this encounter (statuses as of 02/09/2023) [facility] Diagnosis URI, acute- Primary Acute upper respiratory infections of unspecified site Cough Exposure to COVID-19 virus History of asthma Personal history of other diseases of respiratory system documented [facility] this encounter [facility]* Diagnosis Personal history of breast cancer Personal history of malignant neoplasm of breast Encounter for screening mammogram for high-risk patient documented in this encounter [facility] noteNo assessment information availableWSelect [facility] Work Phone: Evaluation note* Diagnosis Onset Date Resolution Status Health care maintenance acut e Anxiety and depression chron ic Hyperlipidemia chronic Migraines chronic Osteopenia chronic Right elbow pain chronic [facility] Work Phone: Evaluation note* Diagnosis Onset Date Resolution Status Acute bronchitis acute Cough present for greater than 3 weeks noneactive Acute sinusitis, unspecified acute Asthmatic bronchitis with acute exacerbation acute [facility] Work Phone: Evaluation note* Diagnosis Personal history of breast cancer Personal history of malignant neoplasm of breast Encounter for screening mammogram for high-risk patient [facility]* Diagnosis Onset Date Resolution Status Acute bronchitis acute Cough present for greater than 3 weeks noneactive Acute sinusitis, unspecified acute Asthmatic bronchitis with acute exacerbation acute Blood pressure elevated without history of HTN acute Anxiety and depression chron ic Asthma chronic Osteopenia chronic Asthma chronic GERD (gastroesophageal reflux disease) chronic [facility] Work Phone: Evaluation note* Diagnosis Onset Date Resolution Status Asthma chronic GERD (gastroesophageal reflux disease) chronic Health care maintenance acut e Anxiety and depression chron ic Asthma chronic GERD (gastroesophageal reflux disease) chronic Osteopenia chronic [facility] Work Phone: Evaluation note* Diagnosis Onset Date Resolution Status Health care maintenance acut e Anxiety and depression chron ic Asthma chronic GERD (gastroesophageal reflux disease) chronic Osteopenia chronic [facility] Work Phone: Evaluation note* Diagnosis Personal history of breast cancer Personal history of malignant neoplasm of breast Encounter for screening mammogram for high-risk patient documented in this encounter [facility] note* Diagnosis Personal history of breast cancer- Primary Personal history of malignant neoplasm of breast Encounter for screening mammogram for high-risk patient documented in this encounter [facility] note* Diagnosis Personal history of breast cancer Personal history of malignant neoplasm of breast Encounter for screening mammogram for high-risk patient documented in this encounter [facility] note* Diagnosis Encounter for follow-up surveillance of breast cancer- Primary Unspecified follow-up examination Encounter for screening mammogram for high-risk patient documented in this encounter [facility] note* Diagnosis Encounter for gynecological examination (general) (routine) without abnormal findings- Primary Encounter for screening mammogram for breast cancer Screening for malignant neoplasm of cervix Screening for malignant neoplasm of the cervix Encounter for screening for human papillomavirus (HPV) Special screening examination for human papillomavirus (HPV) documented in this encounter [facility] Discharge instructions Additional Instructions Return for any worsening of your symptoms and follow-up with your PCP.[facility] Work Phone: Progress note Author Joann Ivory [facility] Note Date/Time January 18, 2025 1 1:56am [facility] [address] [place] [address] OFFICE VISIT Date of Service: 01/18/25 MR#: [id number] Acct: [id number] Patient: WILLIE COBOS Simeon Rep #: [id number] : 1955 Provider: MARY Quintana Age/Sex: 69/F Location: [facility] [place] Status: Signed Intake Vital Signs 12/02/24 14:33 Height 5 ft 6 in Weight: 122 lb 6 oz BMI 19.7 BP 132/78 H Blood Pressure Location Lt brachial Position Sitting Respiration 16 Pulse 67 Pulse Source Monitor Temp 97.1 F L Temp Source Temporal Pulse Oximetry (%) 99 Oxygen Delivery Method room air Intake Visit Reasons: FLU SHOT Chief Complaint: fu Allergies Penicillins Allergy (Mild, Verified 12/02/24 14:28) Rash Have you fallen in the past year?: No Nurse's Note: patient given left upper arm injection tolerated well Immunizations Fluad 65yr up(PF)45 mcg(15 mcgx3)/0.5 mL intramuscular syringe Performing Provider: Frantz Cotter MD Performing Location: [facility] Administered by: Nicky Ellington on 01/18/25 09:56 Dose Route Admin Location Dispensed Lot Number Expiration Date Pack age NDC NDC Link Trainer Operator 45 mcg IM Left Arm (SQ) 0.5 mL [id number] 08/02/25 15994-779-23 [id number] [employer] VIS Given Date VIS Provided VIS Publication Date 01/18/25 Single Vaccine 24 Eligibility Eligibility Date Funding Source Not Applicable Administration Comments: VARGHESE injection given patient tolerated well Assessment and Plan Assessment and Plan Orders: Orders Influenza Immunization 01/18/25 Z23 - Encounter for immunization Clinical Quality Measures Falls Risk Screening/Assistive Devices Have you fallen in the past year?: No 01/28/25 3059 <Electronically signed by Joann GARCIA> Date _ Joann Zuñigaignkami Signature: Date (if applicable) CC: ~ [facility] Work Phone: Reason for referral (narrative)* Diagnostic Procedure Only (Routine) - Closed Specialty Diagnoses / Procedures Referred By Federico t Referred To Contact [facility] Diagnoses Personal history of breast cancer Encounter for screening mammogram for high-risk patient Procedures SJ SCREENING W PURVI SCREENING BREAST DGTL PURVI UNI/BILAT ADD ON SCREENING MAMMOGRAPHY BI 2-VIEW BREAST INC [facility] Ana Griffiths APRN.PALLET STONE INSERTER [address] [place] [address] [facility] [address] [place] [address] Referral ID Status Reason Start Date Expiration Date V isits Requested Visits Authorized [id number] Closed Auto-Generate d Referral 04/09/2021 05/09/2022 1 1 T [facility] for referral (narrative)* Diagnostic Procedure Only (Routine) - Closed Specialty Diagnoses / Procedures Referred By Federico thomas Referred To Contact [facility] Diagnoses Personal history of breast cancer Encounter for screening mammogram for high-risk patient Procedures SJ SCREENING W PURVI SCREENING DIGITAL BREAST TOMOSYNTHESIS BI SCREENING MAMMOGRAPHY BI 2-VIEW BREAST INC Ana Morrow APRN.PALLET STONE INSERTER [address] [place] [address] [facility] [address] [place] [address] Referral ID Status Reason Start Date Expiration Date V isits Requested Visits Authorized [id number] Closed Auto-Generate d Referral 10/19/2021 11/18/2022 1 1 T [facility] for referral (narrative)* Diagnostic Procedure Only (Routine) - Authorized Specialty Diagnoses / Procedures Referred By Federico thomas Referred To Contact [facility] Diagnoses Personal history of breast cancer Encounter for screening mammogram for high-risk patient Procedures SJ SCREENING W PURVI SCREENING DIGITAL BREAST TOMOSYNTHESIS BI SCREENING MAMMOGRAPHY BI 2-VIEW BREAST INC [facility] Ana Griffiths APRN.PALLET STONE INSERTER [address] [place] [address] [facility] [address] [place] [address] Referral ID Status Reason Start Date Expiration Date Visits Requested Visits Authorized [id number] Authorized Auto-Generat ed Referral 10/01/2023 10/30/2024 1 1 [facility] for referral (narrative)No reason for referral information [facility] Work Phone: Reason for visit Narrative* Diagnostic Procedure Only (Routine) - Closed Specialty Diagnoses / Procedures Referred By Federico thomas Referred To Contact [facility] Diagnoses Personal history of breast cancer Encounter for screening mammogram for high-risk patient Procedures SJ SCREENING W PURVI SCREENING BREAST DGTL PURVI UNI/BILAT ADD ON SCREENING MAMMOGRAPHY BI 2-VIEW BREAST INC Ana Morrow APRN.PALLET STONE INSERTER [address] [place] [address] [facility] [address] [place] [address] Referral ID Status Reason Start Date Expiration Date V isits Requested Visits Authorized [id number] Closed Auto-Generate d Referral 04/09/2021 05/09/2022 1 1 [facility] for visit Narrative* Diagnostic Procedure Only (Routine) - Closed Specialty Diagnoses / Procedures Referred By Federico thomas Referred To Contact [facility] Diagnoses Personal history of breast cancer Encounter for screening mammogram for high-risk patient Procedures SJ SCREENING W PURVI SCREENING DIGITAL BREAST TOMOSYNTHESIS BI SCREENING MAMMOGRAPHY BI 2-VIEW BREAST INC Ana Morrow, RADHA.PALLET STONE INSERTER [address] [place] [address] [facility] [address] [place] [address] Referral ID Status Reason Start Date Expiration Date V isits Requested Visits Authorized [id number] Closed Auto-Generate d Referral 10/19/2021 11/18/2022 1 1 [facility] for visit Narrative* Diagnostic Procedure Only (Routine) - Closed Specialty Diagnoses / Procedures Referred By Federico thomas Referred To Contact Radiology / [facility] Diagnoses Spinal stenosis, cervical region MRI CERVICAL SPINE WO CONTRAST-SPINAL STENOSIS, CERVICAL REGION SPONDYLOSIS WITH RADICULOPATHY, OTHER CERVICAL DISC DEGENERATION OUTSIDE ORDER SCANNED AND PLACED IN SYNGO Procedures MRI SPINAL CANAL CERVICAL W/O CONTRAST MATRL MRI WO AILYN [address] [place] [address] [facility] [place] [address] [place] [address] Referral ID Status Reason Start Date Expiration Date Visits Re quested Visits Authorized [id number] Closed 02/01/2022 03/18/2022 1 1 [facility] for visit Narrative* Diagnostic Procedure Only (Routine) - Closed Specialty Diagnoses / Procedures Referred By Federico thomas Referred To Contact [facility] Diagnoses Personal history of breast cancer Encounter for screening mammogram for high-risk patient Procedures SJ SCREENING W PURVI SCREENING DIGITAL BREAST TOMOSYNTHESIS BI SCREENING MAMMOGRAPHY BI 2-VIEW BREAST INC CAD [facility] [place], POLICE INSPECTOR.PALLET STONE INSERTER [address] [place] [address] [facility] [address] [place] [address] Referral ID Status Reason Start Date Expiration Date V isits Requested Visits Authorized [id number] Closed Auto-Generate d Referral 09/26/2022 10/26/2023 1 1 [facility] for visit Narrative* Diagnostic Procedure Only (Routine) - Closed Specialty Diagnoses / Procedures Referred By Federico thomas Referred To Contact [facility] Diagnoses Personal history of breast cancer Encounter for screening mammogram for high-risk patient Procedures SJ SCREENING W PURVI SCREENING DIGITAL BREAST TOMOSYNTHESIS BI SCREENING MAMMOGRAPHY BI 2-VIEW BREAST INC [facility] GriffithsAna, POLICE INSPECTOR.PALLET STONE INSERTER [address] [place] [address] Phone: tel: fax: [facility] [address] [place] [address] Referral ID Status Reason Start Date Expiration Date V isits Requested Visits Authorized [id number] Closed Auto-Generate d Referral 10/01/2023 10/30/2024 1 1 [facility] Health Concerns Infection Onset Date Last Indicated Resolved Time COVID-19 Confirmed 09/01/2021 09/01/2021 Infection Onset Date Last Indicated Resolved Time COVID-19 Confirmed 09/01/2021 09/01/2021 Chief Complaint and Reason for Visit Chief Complaint SPINAL STENOSIS CERV ICAL / RX HERE Chief Complaint SPINAL STENOSIS CERV ICAL / RX HERE 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 Reason for Visit Health care maintena nce Anxiety and depression Hyperlipidemia Migraines Osteopenia Right elbow pain Chief Complaint Cough ACUTE - PERSISTANT COUGH EORDER COUGH/POST NASAL DRIP/BILAT EAR CONCERN EORDER- cough sob Reason for Visit Acute bronchitis Cough present for greater than 3 weeks Acute sinusitis, unspecified Asthmatic bronchitis with acute exacerbation Chief Complaint Cough ACUTE - PERSISTANT COUGH EORDER COUGH/POST NASAL DRIP/BILAT EAR CONCERN EORDER- cough sob 6 M FU 1 M FU Unspecified asthma, uncomplicated Unspecified asthma, uncomplicated Reason for Visit Acute bronchitis Cough present for greater than 3 weeks Acute sinusitis, unspecified Asthmatic bronchitis with acute exacerbation Blood pressure elevated without history of HTN Anxiety and depression Asthma Osteopenia Asthma GERD (gastroesophageal reflux disease) Chief Complaint 1 M FU Unspecified asthma, uncomplicated Unspecified asthma, uncomplicated 3 M FU Amb Documentation Peripheral vascular disease, unspecified Reason for Visit Asthma GERD (gastroesophageal reflux disease) Health care maintenance Anxiety and depression Asthma GERD (gastroesophageal reflux disease) Osteopenia Chief Complaint 3 M FU Amb Documentation Peripheral vascular disease, unspecified POST CONSTANZA Reason for Visit Health care maintena nce Anxiety and depression Asthma GERD (gastroesophageal reflux disease) Osteopenia Chief Complaint Admit Date 6 M FU June 04, 2024 10:40am COUGH, SINUS CONGESTION June 09, 2024 9:05am Reason for Visit Admit Date Blood pressure elevated without history of HTN June 04, 2024 10:40am Health care maintenance June 04, 025 10:40am Anxiety and depression June 04 10:40am Hyperlipidemia June 04, 2024 10:40am Migraines June 04, 2024 10:40am Bacterial sinusitis June 09, 2024 9:05 am Chief Complaint Admit Date 6 M FU June 04, 2024 10:40am COUGH, SINUS CONGESTION June 09, 2024 9:05am acute - persistent cough June 25 8:19am bp monitor check July 02, 2024 8:5 6am COUGH X 3 DAYS September 06, 2024 4:30p m cough September 06, 2024 4:42p m Reason for Visit Admit Date Blood pressure elevated without history of HTN June 04, 2024 10:40am Health care maintenance June 04, 2 025 10:40am Anxiety and depression June 04 10:40am Hyperlipidemia June 04, 2024 10:40am Migraines June 04, 2024 10:40am Bacterial sinusitis June 09, 2024 9:05 am Cough June 25, 2024 8:1 9am Chief Complaint Admit Date 6 M FU June 04, 2024 10:40am COUGH, SINUS CONGESTION June 09, 2024 9:05am acute - persistent cough June 25 8:19am bp monitor check July 02, 2024 8:5 6am COUGH X 3 DAYS September 06, 2024 4:30p m cough September 06, 2024 4:42p m ONGOING COUGH September 20, 2024 7:52 am Chief Complaint Admit Date 6 M FU June 04, 2024 10:40am COUGH, SINUS CONGESTION June 09, 2024 9:05am acute - persistent cough June 25 8:19am bp monitor check July 02, 2024 8:5 6am COUGH X 3 DAYS September 06, 2024 4:30p m cough September 06, 2024 4:42p m ONGOING COUGH September 20, 2024 7:52 am L FOOT MIDDLE TOE INJURY September 27, 2024 10:13am EORDER September 27, 2024 10:4 4am Reason for Visit Admit Date Blood pressure elevated without history of HTN June 04, 2024 10:40am Health care maintenance June 04, 2 025 10:40am Anxiety and depression June 04 10:40am Hyperlipidemia June 04, 2024 10:40am Migraines June 04, 2024 10:40am Bacterial sinusitis June 09, 2024 9:05 am Cough June 25, 2024 8:1 9am Cough September 20, 2024 7:52 am Asthma September 20, 2024 7:52 am Displaced fracture of proxim al phalanx of left lesser toe(s), initial encou September 27, 2024 10:13am Chief Complaint Admit Date COUGH X 3 DAYS September 06, 2024 4:30p m cough September 06, 2024 4:42p m ONGOING COUGH September 20, 2024 7:52 am L FOOT MIDDLE TOE INJURY September 27, 2024 10:13am EORDER September 27, 2024 10:4 4am SORE THROAT, SINUS CONGESTION,COUGH Augu st 2024 8:28am Reason for Visit Admit Date Cough September 20, 2024 7:52 am Asthma September 20, 2024 7:52 am Displaced fracture of proxim al phalanx of left lesser toe(s), initial encou September 27, 2024 10:13am Chief Complaint Admit Date COUGH X 3 DAYS September 06, 2024 4:30p m cough September 06, 2024 4:42p m ONGOING COUGH September 20, 2024 7:52 am L FOOT MIDDLE TOE INJURY September 27, 2024 10:13am EORDER September 27, 2024 10:4 4am SORE THROAT, SINUS CONGESTION,COUGH Augu 2024 8:28am 6 M FU December 02, 2024 2: 28pm Reason for Visit Admit Date Cough September 20, 2024 7:52 am Asthma September 20, 2024 7:52 am Displaced fracture of proxim al phalanx of left lesser toe(s), initial encou September 27, 2024 10:13am Health care maintenance December 02 2:28pm Anxiety and depression December 02, 2024 2:28pm Asthma December 02, 2024 2: 28pm GERD (gastroesophageal reflux disease) A ugust 2024 2:28pm Hyperlipidemia December 02, 2024 2: 28pm Migraines December 02, 2024 2: 28pm Osteopenia December 02, 2024 2: 28pm Chief Complaint Admit Date SORE THROAT, SINUS CONGESTION,COUGH Augu st 2024 8:28am 6 M FU December 02, 2024 2: 28pm FLU SHOT January 18, 2025 9 :03am Reason for Visit Admit Date Health care maintenance December 02 2:28pm Anxiety and depression December 02, 2024 2:28pm Asthma December 02, 2024 2: 28pm GERD (gastroesophageal reflux disease) A ugust 2024 2:28pm Hyperlipidemia December 02, 2024 2: 28pm Migraines December 02, 2024 2: 28pm Osteopenia December 02, 2024 2: 28pm Family History Relationship Condition Age at Onset Recorded Date/T lindsay uncle Myocardial infarction Unknown grandfather Cardiac disease Unknown father History of blood clots Unknown aunt Malignant neoplasm of breast Unknown mother Complication of anesthesia Unknown sister Complication of anesthesia Unknown Relationship Condition Age at Onset Recorded Date/T lindsay uncle Myocardial infarction Unknown grandfather Cardiac disease Unknown father History of blood clots Unknown aunt Malignant neoplasm of breast Unknown mother Complication of anesthesia Unknown sister Complication of anesthesia Unknown daughter Crohn's disease Unknown Advance Directives Advance Directive Response Recorded Date/ Time Living Will No January 18 2:15pm Power of In File Operator No January 18, 2023 2:15pm Advance Directive Response Recorded Date/ Time Living Will No January 18 1:15pm Power of In File Operator No January 18, 2023 1:15pm Advance Directive Response Recorded Date/ Time Living Will No August 27, 2023 2 :43pm Power of In File Operator No August 27, 2023 2:43pm Advance Directive Response Recorded Date/ Time Living Will No August 27, 2023 2 :43pm Do you have a Healthcare Power of In File Operator? No August 27, 2023 2:43pm Summary Purpose Additional Source Comments Source Comments (unrecognize d section and content) In the event this informatio n is protected by the Federal Confidentiality of Alcohol and Drug Abuse Patient Records regulations: The Federal rules restrict any use of the information to criminally investigate or prosecute any alcohol or drug abuse patient.[facility] the event this information is protected by the Federal Confidentiality of Alcohol and Drug Abuse Patient Records regulations: The Federal rules restrict any use of the information to criminally investigate or prosecute any alcohol or drug abuse patient.[facility] the event this information is protected by the Federal Confidentiality of Alcohol and Drug Abuse Patient Records regulations: The Federal rules restrict any use of the information to criminally investigate or prosecute any alcohol or drug abuse patient.[facility] the event this information is protected by the Federal Confidentiality of Alcohol and Drug Abuse Patient Records regulations: The Federal rules restrict any use of the information to criminally investigate or prosecute any alcohol or drug abuse patient.[facility] the event this information is protected by the Federal Confidentiality of Alcohol and Drug Abuse Patient Records regulations: The Federal rules restrict any use of the information to criminally investigate or prosecute any alcohol or drug abuse patient.[facility] the event this information is protected by the Federal Confidentiality of Alcohol and Drug Abuse Patient Records regulations: The Federal rules restrict any use of the information to criminally investigate or prosecute any alcohol or drug abuse patient.[facility] the event this information is protected by the Federal Confidentiality of Alcohol and Drug Abuse Patient Records regulations: The Federal rules restrict any use of the information to criminally investigate or prosecute any alcohol or drug abuse patient.[facility] the event this information is protected by the Federal Confidentiality of Alcohol and Drug Abuse Patient Records regulations: The Federal rules restrict any use of the information to criminally investigate or prosecute any alcohol or drug abuse patient.[facility] the event this information is protected by the Federal Confidentiality of Alcohol and Drug Abuse Patient Records regulations: The Federal rules restrict any use of the information to criminally investigate or prosecute any alcohol or drug abuse patient.[facility] the event this information is protected by the Federal Confidentiality of Alcohol and Drug Abuse Patient Records regulations: The Federal rules restrict any use of the information to criminally investigate or prosecute any alcohol or drug abuse patient.[facility] the event this information is protected by the Federal Confidentiality of Alcohol and Drug Abuse Patient Records regulations: The Federal rules restrict any use of the information to criminally investigate or prosecute any alcohol or drug abuse patient.[facility] the event this information is protected by the Federal Confidentiality of Alcohol and Drug Abuse Patient Records regulations: The Federal rules restrict any use of the information to criminally investigate or prosecute any alcohol or drug abuse patient.[facility] the event this information is protected by the Federal Confidentiality of Alcohol and Drug Abuse Patient Records regulations: The Federal rules restrict any use of the information to criminally investigate or prosecute any alcohol or drug abuse patient.[facility] the event this information is protected by the Federal Confidentiality of Alcohol and Drug Abuse Patient Records regulations: The Federal rules restrict any use of the information to criminally investigate or prosecute any alcohol or drug abuse patient.[facility] Reason for Visit (unrecogniz ed section and content) Reason Comments Covid19 Concern exposure x2 days, ST , cough, chills, runny nose, body aches x last night Reason Comments Results Reason Comments Established Patient Reason Comments [facility] Teams (unrecognized sec tion and content) Picker And Sorter Load And Unload Relationship Specialty Start Date End Date Nick Hernandes DO PCP - General Family Practice 09/14/20 Picker And Sorter Load And Unload Relationship Specialty Start Date End Date Nick Hernandes DO PCP - General Family Practice 09/14/20 Picker And Sorter Load And Unload Relationship Specialty Start Date End Date Nick Hernandes DO PCP - General Family Practice 09/14/20 Picker And Sorter Load And Unload Relationship Specialty Start Date End Date Nick Hernandes DO PCP - General Family Practice 09/14/20 Team Status: Active Member Role Status Dates Dr. Frantz Cotter MD Primary Care Provider Active Team Status: Inactive Member Role Status Dates Dr. Cathy Sheikh MD Primary Care Provider, Referrin g Provider Active Dr. Frantz Cotter MD Attending Provider Active Team Status: Inactive Member Role Status Dates Dr. Cathy Sheikh MD Primary Care Provider Active Dr. Dickson Lorenz DO Attending Provider, Referring P linsey Active Team Status: Inactive Member Role Status Dates Dr. Frantz Cotter MD Primary Care P linsey, Attending Provider, Referring Provider Active Picker And Sorter Load And Unload Relationship Specialty Start Date End Date Cathy Sheikh MD [address] [place] [address] PCP - General Family Medicine 10/19/21 Team Status: Inactive Member Role Status Dates Dr. Frantz Cotter MD Primary Care Provider, Refer ring Provider Active Yusuf JOHNSON PA Attending Provider Active Team Status: Inactive Member Role Status Dates Dr. Frantz Cotter MD Primary Care Provider, Refer ring Provider Active Dr. Maty Heredia MD Attending Provider Active Team Status: Inactive Member Role Status Dates Dr. Frantz Cotter MD Primary Care Provider, Refer ring Provider Active Alfie JOHNSON PA Attending Provider Active Team Status: Inactive Member Role Status Dates Dr. Frantz Cotter MD Primary Care Provider Active Dr. Maty Heredia MD Attending Provider, Referring Provider Active Team Status: Active Member Role Status Dates Dr. Frantz Cotter MD Primary Care Provider Active Alfie JOHNSON PA Attending Provider, Referring Pr ovider Active Team Status: Inactive Member Role Status Dates Dr. Frantz Cotter MD Primary Care Provider Active Dr. Richmond Pandey MD Emergency Provider Active Team Status: Inactive Member Role Status Dates Dr. Frantz Cotter MD Primary Care Provider Active Alfie JOHNSON PA Attending Provider, Referring Pr ovider Active Picker And Sorter Load And Unload Relationship Specialty Start Date End Date Cathy Sheikh MD [address] [place] [address] PCP - General Family Medicine 10/19/21 Picker And Sorter Load And Unload Relationship Specialty Start Date End Date Cathy Sheikh MD [address] [place] [address] PCP - General Family Medicine 10/19/21 Team Status: Active Member Role Status Dates Dr. Frantz Cotter MD Primary Care P linsey, Referring Provider, Other Provider Active Dr. Hiram Jackson MD Attending Provider Active Team Status: Inactive Member Role Status Dates Dr. Frantz Cotter MD Primary Care Provider Active Dr. Richmond Pandey MD Attending Provider, Emergency Provider Active Team Status: Active Member Role Status Dates Dr. Frantz Cotter MD Primary Care Provider Active Cristin Helms Attending Provider Active Team Status: Active Member Role Status Dates Dr. Frantz Cotter MD Primary Care Provider Active Dr. Eduardo Christie MD Attending Provider Active Team Status: Active Member Role Status Dates Dr. Frantz Cotter MD Primary Care Provider, Refer ring Provider Active Dr. Eduardo Christie MD Attending Provider Active Picker And Sorter Load And Unload Relationship Specialty Start Date End Date Cathy Sheikh MD [address] [place] [address] PCP - General Family Medicine 10/19/21 Picker And Sorter Load And Unload Relationship Specialty Start Date End Date Cathy Sheikh MD [address] [place] [address] PCP - General Family Medicine 10/19/21 Picker And Sorter Load And Unload Relationship Specialty Start Date End Date Cathy Sheikh MD [address] [place], [place] [address] PCP - General Family Medicine 10/19/21 Picker And Sorter Load And Unload Relationship Specialty Start Date End Date Nick Hernandes DO PCP - General Family Medicine 09/14/20 10/18/21 Team Status: Inactive Member Role Status Dates Dr. Frantz Cotter MD Primary Care Provider Active Start: June 04, 2024 End: June 04, 2024 Dr. Frantz Cotter MD Attending Provider Active Start: June 04, 2024 End: June 04, 2024 Dr. Frantz Cotter MD Referring Provider Active Start: June 04, 2024 End: June 04, 2024 Team Status: Inactive Member Role Status Dates Dr. Frantz Cotter MD Primary Care Provider Active Start: June 09, 2024 End: June 09, 2024 Dr. Frantz Cotter MD Referring Provider Active Start: June 09, 2024 End: June 09, 2024 JOSE Clark Attending Provider Active Star t: June 09, 2024 End: June 09, 2024 Team Status: Inactive Member Role Status Dates Dr. Frantz Cotter MD Primary Care Provider Active Start: June 25, 2024 End: June 25, 2024 Dr. Frantz Cotter MD Referring Provider Active Start: June 25, 2024 End: June 25, 2024 ALEX Edmonds Attending Provider Active St art: June 25, 2024 End: June 25, 2024 Team Status: Inactive Member Role Status Dates Dr. Frantz Cotter MD Primary Care Provider Active Start: July 02, 2024 End: July 02, 2024 Dr. Frantz Cotter MD Attending Provider Active Start: July 02, 2024 End: July 02, 2024 Dr. Frantz Cotter MD Referring Provider Active Start: July 02, 2024 End: July 02, 2024 Team Status: Inactive Member Role Status Dates Dr. Frantz Cotter MD Primary Care Provider Active Start: September 06, 2024 End: September 06, 2024 Dr. Frantz Cotter MD Referring Provider Active Start: September 06, 2024 End: September 06, 2024 Alfie JOHNSON PA Attending Provider Active Start: September 06, 2024 End: September 06, 2024 Team Status: Active Member Role Status Dates Dr. Frantz Cotter MD Primary Care Provider Active Start: September 06, 2024 Alfie JOHNSON PA Attending Provider Active Start: September 06, 2024 Alfie JOHNSON PA Referring Provider Active Start: September 06, 2024 Team Status: Inactive Member Role Status Dates Dr. Frantz Cotter MD Primary Care Provider Active Start: September 06, 2024 End: September 06, 2024 ALEX Chandler Attending Provider Active Start: September 06, 2024 End: September 06, 2024 ALEX Chandler Referring Provider Active Start: September 06, 2024 End: September 06, 2024 Team Status: Inactive Member Role Status Dates Dr. Frantz Cotter MD Primary Care Provider Active Start: September 20, 2024 End: September 20, 2024 Dr. Frantz Cotter MD Attending Provider Active Start: September 20, 2024 End: September 20, 2024 Dr. Frantz Cotter MD Referring Provider Active Start: September 20, 2024 End: September 20, 2024 Team Status: Inactive Member Role Status Dates Dr. Frantz Cotter MD Primary Care Provider Active Start: September 27, 2024 End: September 27, 2024 Dr. Frantz Cotter MD Referring Provider Active Start: September 27, 2024 End: September 27, 2024 ALEX Chandler Attending Provider Active Start: September 27, 2024 End: September 27, 2024 Team Status: Active Member Role Status Dates Dr. Frantz Cotter MD Primary Care Provider Active Start: September 27, 2024 ALEX Chandler Attending Provider Active Start: September 27, 2024 ALEX Chandler Referring Provider Active Start: September 27, 2024 [employer] Relationship Specialty Start Date End Date Cathy Sheikh MD [address] [place] [address] PCP - General Family Medicine 10/19/21 Team Status: Active Member Role/Relationship Status Dates Dr. Frantz Cotter MD Primary Care Provider Active Team Status: Inactive Member Role/Relationship Status Dates Dr. rFantz Cotter MD Primary Care Provider Active Start: June 04, 2024 End: June 04, 2024 Dr. Frantz Cotter MD Attending Provider Active Start: June 04, 2024 End: June 04, 2024 Dr. Frantz Cotter MD Referring Provider Active Start: June 04, 2024 End: June 04, 2024 Team Status: Inactive Member Role/Relationship Status Dates Dr. Frantz Cotter MD Primary Care Provider Active Start: June 04, 2024 End: June 04, 2024 Dr. Frantz Cotter MD Attending Provider Active Start: June 04, 2024 End: June 04, 2024 Dr. Frantz Cotter MD Referring Provider Active Start: June 04, 2024 End: June 04, 2024 Team Status: Inactive Member Role/Relationship Status Dates Dr. Frantz Cotter MD Primary Care Provider Active Start: June 09, 2024 End: June 09, 2024 Dr. Frantz Cotter MD Referring Provider Active Start: June 09, 2024 End: June 09, 2024 JOSE Clark Attending Provider Active Star t: June 09, 2024 End: June 09, 2024 Team Status: Inactive Member Role/Relationship Status Dates Dr. Frantz Cotter MD Primary Care Provider Active Start: June 25, 2024 End: June 25, 2024 Dr. Frantz Cotter MD Referring Provider Active Start: June 25, 2024 End: June 25, 2024 ALEX Edmonds Attending Provider Active St art: June 25, 2024 End: June 25, 2024 Team Status: Inactive Member Role/Relationship Status Dates Dr. Frantz Cotter MD Primary Care Provider Active Start: July 02, 2024 End: July 02, 2024 Dr. Frantz Cotter MD Attending Provider Active Start: July 02, 2024 End: July 02, 2024 Dr. Frantz Cotter MD Referring Provider Active Start: July 02, 2024 End: July 02, 2024 Team Status: Inactive Member Role/Relationship Status Dates Dr. Frantz Cotter MD Primary Care Provider Active Start: September 06, 2024 End: September 06, 2024 Dr. Frantz Cotter MD Referring Provider Active Start: September 06, 2024 End: September 06, 2024 Alfie JOHNSON PA Attending Provider Active Start: September 06, 2024 End: September 06, 2024 Team Status: Inactive Member Role/Relationship Status Dates Dr. Frantz Cotter MD Primary Care Provider Active Start: September 06, 2024 End: September 06, 2024 ALEX Chandler Attending Provider Active Start: September 06, 2024 End: September 06, 2024 ALEX Chandler Referring Provider Active Start: September 06, 2024 End: September 06, 2024 Team Status: Inactive Member Role/Relationship Status Dates Dr. Frantz Cotter MD Primary Care Provider Active Start: September 20, 2024 End: September 20, 2024 Dr. Frantz Cotter MD Attending Provider Active Start: September 20, 2024 End: September 20, 2024 Dr. Frantz Cotter MD Referring Provider Active Start: September 20, 2024 End: September 20, 2024 Team Status: Inactive Member Role/Relationship Status Dates Dr. Frantz Cotter MD Primary Care Provider Active Start: September 27, 2024 End: September 27, 2024 Dr. Frantz Cotter MD Referring Provider Active Start: September 27, 2024 End: September 27, 2024 ALEX Chandler Attending Provider Active Start: September 27, 2024 End: September 27, 2024 Team Status: Inactive Member Role/Relationship Status Dates Dr. Frantz Cotter MD Primary Care Provider Active Start: September 27, 2024 End: September 27, 2024 ALEX Chandler Attending Provider Active Start: September 27, 2024 End: September 27, 2024 ALEX Chandler Referring Provider Active Start: September 27, 2024 End: September 27, 2024 [employer] Relationship Specialty Start Date End Date Cathy Sheikh MD [address] [place] [address] PCP - General Family Medicine 10/19/21 Team Status: Inactive Member Role/Relationship Status Dates Dr. Frantz Cotter MD Primary Care Provider Active Start: September 06, 2024 End: September 06, 2024 Dr. Frantz Cotter MD Referring Provider Active Start: September 06, 2024 End: September 06, 2024 Alfie JOHNSON PA Attending Provider Active Start: September 06, 2024 End: September 06, 2024 Team Status: Inactive Member Role/Relationship Status Dates Dr. Frantz Cotter MD Primary Care Provider Active Start: September 06, 2024 End: September 06, 2024 Alfie JOHNSON, PA Attending Provider Active Start: September 06, 2024 End: September 06, 2024 Alfie JOHNSON, PA Referring Provider Active Start: September 06, 2024 End: September 06, 2024 Team Status: Inactive Member Role/Relationship Status Dates Dr. Frantz Cotter MD Primary Care Provider Active Start: September 20, 2024 End: September 20, 2024 Dr. Frantz Cotter MD Attending Provider Active Start: September 20, 2024 End: September 20, 2024 Dr. Frantz Cotter MD Referring Provider Active Start: September 20, 2024 End: September 20, 2024 Team Status: Inactive Member Role/Relationship Status Dates Dr. Frantz Cotter MD Primary Care Provider Active Start: September 27, 2024 End: September 27, 2024 Dr. Frantz Cotter MD Referring Provider Active Start: September 27, 2024 End: September 27, 2024 Alfie JOHNSON PA Attending Provider Active Start: September 27, 2024 End: September 27, 2024 Team Status: Inactive Member Role/Relationship Status Dates Dr. Frantz Cotter MD Primary Care Provider Active Start: September 27, 2024 End: September 27, 2024 Alfie JOHNSON PA Attending Provider Active Start: September 27, 2024 End: September 27, 2024 Alfie JOHNSON, PA Referring Provider Active Start: September 27, 2024 End: September 27, 2024 Team Status: Inactive Member Role/Relationship Status Dates Dr. Frantz Cotter MD Primary Care Provider Active Start: November 09, 2024 End: November 09, 2024 Dr. Frantz Cotter MD Referring Provider Active Start: November 09, 2024 End: November 09, 2024 ALEX Chandler Attending Provider Active Start: November 09, 2024 End: November 09, 2024 Team Status: Inactive Member Role/Relationship Status Dates Dr. Frantz Cotter MD Primary Care Provider Active Start: December 02, 2024 End: December 02, 2024 Dr. Frantz Cotter MD Attending Provider Active Start: December 02, 2024 End: December 02, 2024 Dr. Frantz Cotter MD Referring Provider Active Start: December 02, 2024 End: December 02, 2024 Team Status: Inactive Member Role/Relationship Status Dates Dr. Frantz Cotter MD Primary Care Provider Active Start: December 02, 2024 End: December 02, 2024 Dr. Frantz Cotter MD Attending Provider Active Start: December 02, 2024 End: December 02, 2024 Dr. Frantz Cotter MD Referring Provider Active Start: December 02, 2024 End: December 02, 2024 Team Status: Active Member Role/Relationship Status Dates Dr. Frantz Cotter MD Primary care physician Activ e Team Status: Inactive Member Role/Relationship Status Dates Dr. Frantz Cotter MD Primary care physician Activ e Start: November 09, 2024 End: November 09, 2024 Dr. Frantz Cotter MD Referring Provider Active Start: November 09, 2024 End: November 09, 2024 ALEX Chandler Attending physician Active Start: November 09, 2024 End: November 09, 2024 Team Status: Inactive Member Role/Relationship Status Dates Dr. Frantz Cotter MD Primary care physician Activ e Start: December 02, 2024 End: December 02, 2024 Dr. Frantz Cotter MD Attending physician Active Start: December 02, 2024 End: December 02, 2024 Dr. Frantz Cotter MD Referring Provider Active Start: December 02, 2024 End: December 02, 2024 Team Status: Inactive Member Role/Relationship Status Dates Dr. Frantz Cotter MD Primary care physician Activ e Start: December 02, 2024 End: December 02, 2024 Dr. Frantz Cotter MD Attending physician Active Start: December 02, 2024 End: December 02, 2024 Dr. Frantz Cotter MD Referring Provider Active Start: December 02, 2024 End: December 02, 2024 Team Status: Inactive Member Role/Relationship Status Dates Dr. Frantz Cotter MD Primary care physician Activ e Start: January 18, 2025 End: January 18, 2025 Dr. Frantz Cotter MD Referring Provider Active Start: January 18, 2025 End: January 18, 2025 JOSE Valdes Attending physician Active Start: January 18, 2025 End: January 18, 2025 Goals (unrecognized section and content) Goals may be documented in a n alternate sectionGoals may be documented in an alternate sectionGoals may be documented in an alternate sectionGoals may be documented in an alternate sectionGoals may be documented in an alternate sectionGoals may be documented in an alternate sectionGoals may be documented in an alternate sectionGoals may be documented in an alternate sectionGoals may be documented in an alternate sectionGoals may be documented in an alternate sectionGoals may be documented in an alternate sectionGoals may be documented in an alternate sectionGoals may be documented in an alternate sectionGoals may be documented in an alternate sectionGoals may be documented in an alternate sectionGoals may be documented in an alternate sectionGoals may be documented in an alternate sectionGoals may be documented in an alternate section INFORMATION SOURCE (unrecogn ized section and content) DATE CREATED AUTHOR 11/19/2024 [facility] DATE CREATED AUTHOR AUTHOR'S ORGANIZ ATION 01/31/2025 [facility] FOR RECORDS PERTAINING TO PATIENTS WHO ARE OR HAVE BEEN ENROLLED IN A CHEMICAL DEPENDENCY/SUBSTANCEABUSE PROGRAM, SOME INFORMATION MAY BE OMITTED. This clinical summary was aggregated from multiple sources. Caution should be exercised in using it in the provision of clinical care. This summary normalizes information from multiple sources, and as a consequence, information in this document may materially change the coding, format and clinical context of patient data. In addition, data may be omitted in some cases. CLINICAL DECISIONS SHOULD BE BASED ON THE PRIMARY CLINICAL RECORDS. [employer] [facility] provides no warranty or guarantee of the accuracy or completeness of information in this document.
== END | disposition home or self-care (01) ==
LOC: CT 15:44
PROVIDERS: PCP Internal Medicine; Referring Provider Internal Medicine; Visit Provider Internal Medicine
DX: R05.3 Chronic cough (principal); R09.89 Other specified symptoms and signs involving the circulatory and respiratory systems
CPT/HCPCS: 71260; Q9967